=== PATIENT | female | born 1960 | race Caucasian/White ===

== ENCOUNTER → 2016-09-14 | Outpatient (CLI) | payer MEDICARE, BC, OTHER | END | disposition home or self-care (01) | LOC: LABWHC1 09:18 | PROVIDERS: ATTEND Internal Medicine Endocrinology, Diabetes & Metabolism | DX: E03.9 Hypothyroidism, unspecified (principal) | CPT/HCPCS: 36415; 84443 ==

== ENCOUNTER 2016-09-21 14:52 | Observation (INO) | payer BC, MEDICARE, OTHER ==
--- NOTE | 2016-09-21 15:09 | ED ---
Chest Pain HPI - General Chief Complaint: Chest Pain Stated Complaint: chest pain Time Seen by Provider: 09/21/16 14:57 Source: patient Mode of arrival: wheelchair Limitations: no limitations - History of Present Illness Initial Comments: This patient is a 56-year-old woman who comes to be evaluated for an episode of chest pain that occurred over the course of tonight. The patient states that she was awoken by epigastric pain around 2 AM. She states that after to been going on probably 15 minutes she got up and took baby aspirin for this. She states that the pain seemed to radiate up to the substernal area. She described as a tightness, and that it was severe. She states that over about the 15 minutes after she took the baby aspirin the pain resolved. She denies any other associated symptoms. She has been symptom-free since the episode. She phoned her cutter out clinic and they wanted her to come to the emergency department for evaluation. MD Complaint: chest pain Onset/Timin -: hour(s) Onset: awoke with symptoms Pain Location: epigastric Pain Radiation: other (Substernal) Severity: severe Quality: tightness Consistency: now resolved Improves With: other (Baby aspirin) Worsens With: nothing Treatments Prior to Arrival: aspirin - Related Data On Oral Contraceptives: No Home Medications Medication Instructions Recorded Confirmed Benzonatate 100 mg PO DAILY 04/12/15 09/21/16 Levothyroxine Sodium [Synthroid] 88 mcg PO DAILY 04/12/15 09/21/16 azaTHIOprine [Imuran] 50 mg PO DAILY 04/12/15 09/21/16 predniSONE 10 mg PO DAILY 04/12/15 09/21/16 Aspirin EC [Ecotrin Low Dose] 324 mg PO DAILY 09/21/16 09/21/16 Previous Rx's Medication Instructions Recorded Atorvastatin [Lipitor] 80 mg PO HS #1 tab 04/14/15 Metoprolol Tartrate [Lopressor] 25 mg PO BID #1 tab 04/14/15 Nitroglycerin Sl Tabs [Nitrostat] 0.4 mg SUBLINGUAL Q5M PRN #1 tab 04/14/15 Clopidogrel [Plavix] 75 mg PO DAILY #30 tab 06/14/15 Omeprazole [PriLOSEC] 40 mg PO AC-BRKFST #14 cap 07/29/15 Allergies Allergy/AdvReac Type Severity Reaction Status Date / Time Sulfa (Sulfonamide Allergy Rash/Hives Verified 09/21/16 15:39 Antibiotics) Review of Systems ROS Statement: Those systems with pertinent positive or pertinent negative responses have been documented in the HPI. ROS Other: All systems not noted in ROS Statement are negative. Constitutional: Denies: fever, chills Respiratory: Denies: cough, dyspnea, wheezes Cardiovascular: Reports: chest pain. Denies: palpitations, edema, syncope Gastrointestinal: Denies: abdominal pain, nausea, vomiting Genitourinary: Denies: dysuria, hematuria Musculoskeletal: Denies: back pain Skin: Denies: rash Neurological: Denies: headache, weakness, numbness EKG Findings - EKG Results: EKG: interpreted by MICHAEL CADENA (Rate 69 bpm), sinus rhythm, normal axis, normal QRS, normal ST/T, no acute changes - [place], Pacemaker, Normal: Normal tracing: normal tracing Past Medical History Past Medical History: Coronary Artery Disease (CAD), Hyperlipidemia, Myocardial Infarction ([place]), Thyroid Disorder Additional Past Medical History / Comment(s): 06/12/15 Pt presented to [facility] ER with chest discomfort which started last night. Symptoms resolved then returned this AM. Currently syptoms free in the ER. Pain was a "pressure" type pain and she said it had been a "6" on scale 1-10. Pain was in the L sternal region with associated dyspnea with radiation to her neck. Pt states she had a similar experience and had a stent place. Pt being admitted with clinical impression of unstable angina pectoralis. Other HX: Idiopathic pulmonary fibrosis, hypothyroidism. Last Myocardial Infarction Date:: 04/12/15 History of Any Multi-Drug Resistant Organisms: None Reported Past Surgical History: Section, Heart Catheterization With Stent, Hysterectomy, Tonsillectomy Additional Past Surgical History / Comment(s): Open lung biopsy, RIGHT GROIN CATH 04/12/15-stent to LAD, x 1, colonoscopy-normal, R breast lumpectomy-benign. Past Anesthesia/Blood Transfusion Reactions: No Reported Reaction Date of Last Stent Placement:: 04/12/15 Past Psychological History: No Psychological Hx Reported Additional Psychological History / Comment(s): Pt has an adult daughter who lives with her. She is independent. She uses no assistive device. She drives. Smoking Status: Never smoker Past Alcohol Use History: Occasional Past Drug Use History: None Reported - Past Family History Mother Family Medical History: Coronary Artery Disease (CAD), Diabetes Mellitus, Hyperlipidemia, Myocardial Infarction ([place]), Thyroid Disorder Father Family Medical History: Diabetes Mellitus General Exam Limitations: no limitations General appearance: alert, in no apparent distress Head exam: Present: atraumatic, normocephalic Eye exam: Present: normal appearance. Absent: scleral icterus, conjunctival injection ENT exam: Present: normal oropharynx Neck exam: Present: normal inspection, full ROM Respiratory exam: Present: normal lung sounds bilaterally. Absent: respiratory distress, wheezes, rales, rhonchi, stridor, chest wall tenderness Cardiovascular Exam: Present: regular rate, normal rhythm, normal heart sounds. Absent: systolic murmur, diastolic murmur, rubs, gallop GI/Abdominal exam: Present: soft. Absent: distended, tenderness, guarding, rebound, mass Extremities exam: Present: normal inspection, normal capillary refill. Absent: pedal edema, calf tenderness Back exam: Present: normal inspection. Absent: CVA tenderness (R), CVA tenderness (L) Neurological exam: Present: alert Skin exam: Present: warm, dry, intact, normal color. Absent: rash Course Vital Signs 09/21/16 09/21/16 09/21/16 14:54 15:01 15:53 Temperature 97.8 F 98.5 F Pulse Rate 88 73 62 Respiratory 20 20 20 Rate Blood Pressure 120/69 132/64 121/64 O2 Sat by Pulse 99 97 95 Oximetry 09/21/16 16:48 Temperature 97.7 F Pulse Rate 59 L Respiratory 18 Rate Blood Pressure 131/65 O2 Sat by Pulse 95 Oximetry Chest Pain [facility] Patient with episode of chest pain approximately 13 hours prior to arrival. She stated that there were definitely some elements that were reminiscent to her previous pain when she required stent, however some of the symptoms she states felt different. The initial workup is negative. Case is discussed with Dr. Matson who will admit the patient to have serial cardiac enzymes and telemetry monitoring as well as cardiology consultation. Disposition Clinical Impression: Chest pain Disposition: ADMITTED IP TO THIS [facility] Condition: Fair Referrals: Jere Farmer MD [Primary Care Provider] - 1-2 days
[2016-09-21 15:27] LABS: Basophils % (A) 0 %; CH 31.2; CHCM 33.2; Eosinophils # (A) 0.1 k/uL (0-0.7); Eosinophils % (A) 1 %; HCT 42.1 % (34.0-46.0); HDW 2.22; HGB 13.8 gm/dL (11.4-16.0); Luc % (Auto) 2; Lymphocytes # (A) 0.7 k/uL (1.0-4.8); Lymphocytes % (A) 13 %; MCHC 32.8 g/dL (31.0-37.0); MCV 94.4 fL (80.0-100.0); Mean Platelet Volume 6.9; Monocytes # (A) 0.4 k/uL (0-1.0); Monocytes % (A) 7 %; Neutrophils # (A) 4.4 k/uL (1.3-7.7); Neutrophils % (A) 76 %; RBC 4.47 m/uL (3.80-5.40); RDW 12.6 % (11.5-15.5); WBC 5.7 k/uL (3.8-10.6); WBC (Perox) 5.99
[2016-09-21 15:41] LABS: ALT 78 U/L (9-52); AST 57 U/L (14-36); Alkaline Phosphatase 101 U/L (38-126); Anion Gap 10 mmol/L; Blood Urea Nitrogen 17 mg/dL (7-17); Calcium 9.2 mg/dL (8.4-10.2); Carbon Dioxide 25 mmol/L (22-30); Chloride 108 mmol/L (98-107); Glucose 123 mg/dL (74-99); Non-African American GFR(MDRD) >60 (>60 ml/min/1.73 sqM); Potassium 4.3 mmol/L (3.5-5.1); Sodium 143 mmol/L (137-145); Total Bilirubin 0.5 mg/dL (0.2-1.3); Total Protein 6.6 g/dL (6.3-8.2)
--- NOTE | 2016-09-21 15:44 | XR ---
EXAMINATION TYPE: XR chest 2V DATE OF EXAM: 09/21/2016 3:24 PM COMPARISON: Prior chest x-ray 26 July 2015 HISTORY: Chest pain TECHNIQUE: Frontal and lateral views of the chest are obtained. FINDINGS: There are overlying cardiac leads. Cardiomediastinal silhouette, pulmonary vascularity and sagar are within normal limits. Interstitium and lung volume are increased. There is persistent blunt ing left costophrenic angle, strand-like densities are present at the lung bases which may reflect sc arring. IMPRESSION: No significant interval change. Chronic pleural parenchymal changes. Correlate for inter stitial lung disease, chest CT may be of benefit.
[2016-09-21 15:48] LABS: Creatine Kinase 70 U/L (30-135)
[2016-09-21 15:58] LABS: INR 1.1 (<1.1); Prothrombin Time 10.8 sec (9.0-12.0)
[2016-09-21 15:59] LABS: Partial Thromboplastin Time 21.5 sec (22.0-30.0)
[2016-09-21 16:01] LABS: Creatine Kinase MB 0.2 ng/mL (0.0-2.4); Troponin I <0.012 ng/mL (0.000-0.034)
[2016-09-21] MEDS ORDERED: NITROGLYCERIN SL TABS 0.4 MG TAB SUBLINGUAL PRN ×2 (17:04→17:06)
[2016-09-21 20:57] VITALS: RESP 16
[2016-09-21] MEDS: ATORVASTATIN 80 MG TAB PO SCH (22:14)
[2016-09-21] MEDS: METOPROLOL TARTRATE 25 MG TAB PO SCH (22:14)
[2016-09-21 23:06] LABS: Creatine Kinase 54 U/L (30-135)
[2016-09-21 23:17] LABS: Creatine Kinase MB <0.2 ng/mL (0.0-2.4); Troponin I <0.012 ng/mL (0.000-0.034)
[2016-09-22 03:45] LABS: Cholesterol 132 mg/dL (<200); HDL Cholesterol 54 mg/dL (40-60); Triglycerides 110 mg/dL (<150)
[2016-09-22 03:47] LABS: Creatine Kinase 51 U/L (30-135)
[2016-09-22 04:00] LABS: Creatine Kinase MB <0.2 ng/mL (0.0-2.4); Troponin I <0.012 ng/mL (0.000-0.034)
[2016-09-22] MEDS: LEVOTHYROXINE 88 MCG TAB PO SCH (06:46)
[2016-09-22] MEDS ORDERED: NITROGLYCERIN SL TABS 0.4 MG TAB SUBLINGUAL PRN (07:34)
[2016-09-22] MEDS ORDERED: SODIUM CHLORIDE 0.9% 1,000 ML in EMPTY BAG 1 BAG IV ONE (07:34)
[2016-09-22] MEDS ORDERED: ATORVASTATIN 80 MG TAB PO STA (07:34)
[2016-09-22] MEDS ORDERED: ALPRAZolam 0.25 MG TAB PO PRN (07:34)
[2016-09-22] MEDS ORDERED: ASPIRIN 325 MG TAB PO STA (07:34)
[2016-09-22] MEDS ORDERED: ALPRAZolam 0.5 MG TAB PO PRN (07:34)
[2016-09-22] MEDS: CLOPIDOGREL 75 MG TAB PO SCH (08:18)
[2016-09-22] MEDS: BENZONATATE 100 MG CAP PO SCH (08:19)
[2016-09-22] MEDS: METOPROLOL TARTRATE 25 MG TAB PO SCH ×2 (08:19→22:03)
[2016-09-22] MEDS: azaTHIOprine 50 MG TAB PO SCH (08:19)
[2016-09-22] MEDS: PANTOPRAZOLE 40 MG TABLET PO SCH (08:19)
[2016-09-22] MEDS: predniSONE 10 MG TAB PO SCH (08:19)
[2016-09-22] MEDS ORDERED: LIDOCAINE 2% INJ 20 MG/ML (20 ML MDV) ONE (08:41)
[2016-09-22] MEDS ORDERED: fentaNYL (PF) 50 MCG/ML 2 ML AMP ONE (08:42)
[2016-09-22] MEDS ORDERED: diphenhydrAMINE 50 MG/ML 1 ML VIAL ONE (08:42)
[2016-09-22] MEDS ORDERED: SODIUM CHLORIDE 0.9% 500 ML IV ONE (08:55)
[2016-09-22] MEDS ORDERED: NON-FORMULARY DRUG (Aspirin Ec 324 MG) PO SCH (09:00)
[2016-09-22] MEDS ORDERED: ASPIRIN 325 MG TAB PO SCH (09:00)
[2016-09-22] MEDS ORDERED: diphenhydrAMINE 50 MG/ML 1 ML VIAL IVP ONE (09:01)
[2016-09-22] MEDS ORDERED: fentaNYL (PF) 50 MCG/ML 2 ML AMP IV ONE (09:02)
[2016-09-22] MEDS ORDERED: LIDOCAINE 2% INJ 20 MG/ML SQ ONE (09:06)
[2016-09-22] MEDS ORDERED: NITROGLYCERIN 1000MCG/10ML SYRINGE INTRACORON ONE (09:18)
[2016-09-22] MEDS ORDERED: IOHEXOL 350 MG/ML 100 ML BOTTLE INJ ONE (09:26)
[2016-09-22] MEDS ORDERED: RX INFO: IV CONTRAST WAS GIVEN 1 EACH MISC MISCELLANE PRN (09:36)
--- NOTE | 2016-09-22 10:33 | CC ---
CLINICAL INFORMATION: Cris Dobbs is well known to me, follows with me in the office. The patient is known to have hypertension, hypercholesterolemia and coronary artery disease, underwent angioplasty and stenting of the LAD in April 2015 and repeat angioplasty was done because of small aortic dissection noted in June 2015. Since that time, patient has been pain free. Patient admitted here with recurrent chest pain suggestive of unstable angina, evaluated by my associate, advised to have a cardiac catheterization based on her symptoms, even though there were no enzyme leaks. PROCEDURE: Under local anesthesia under moderate sedation, the patient received fentanyl and the patient remained under sedation for 30 minutes. With sterile precautions, right femoral artery was cannulated. Using a Seldinger technique, a 6 [place] sheath was placed and proceeded with right and left coronary angiograms followed by left ventriculogram followed by common femoral angiogram and Angio-Seal. The patient tolerated the procedure very well. The patient required left coronary 3.5 ( ) catheter and also required ( ) for the right. HEMODYNAMIC DATA: Aortic pressure noted to be done 146/74 with a mean pressure of 101. Left ventricular end-diastolic pressure prior to angiography was 10; post angiography increased to 12. Left ventriculography done 30 degrees JIMENEZ projection revealed normal cardiac silhouette with well-preserved systolic function with an ejection fraction of 65%. Mild catheter-induced mitral regurgitation is noted. Ascending and descending aorta appeared normal. SELECTIVE CORONARY ARTERIOGRAPHY: Left main coronary artery is of normal caliber, free of any atherosclerotic occlusive disease. Left anterior descending is a moderate-caliber blood vessel, wraps around the apex, free of any atherosclerotic occlusive disease without any evidence of re-stenosis in the mid segment that was stented in April 2015 and June 2015. Left circumflex is a moderate-caliber nondominant blood vessel free of any atherosclerotic occlusive disease. Right coronary artery: Right coronary artery originates posteriorly, dominant blood vessel, free of any atherosclerotic occlusive disease throughout its course. ASSESSMENT: No evidence of recurrence of re-stenosis in the mid LAD, which was stented in June and April of 2015. Normal end-diastolic pressure, normal LV function, normal coronaries. Continue medical therapy methods.
--- NOTE | 2016-09-22 11:22 | HP ---
DATE OF ADMISSION: 09/21/2016 PRESENTING COMPLAINT: Chest pain. HISTORY OF PRESENTING COMPLAINT: This is a very pleasant 57 -year-old patient who follows with Dr. Farmer. Patient's chronic stable medical conditions include pulmonary fibrosis, hypertension, hyperlipidemia and hypothyroid. Patient this morning got woke up around 2:00 with pain felt like a hot pain in the epigastric area, went up the lower sternum, lasted for a good 40 minutes. She took aspirin to which she feels better. Patient started perspiring without much short of breath. Does feel a bit tired, no dizziness. Patient was admitted with diagnosis of unstable angina. Patient has a known history of stent back in 2014 and has had no further testing since then. The patient has fair exercise tolerance. Able to get around the house. REVIEW OF SYSTEMS: CONSTITUTIONAL: Tired. HEENT: None. RESPIRATORY: As above. CARDIOVASCULAR: As above. GASTROINTESTINAL: None. GENITOURINARY: None. MUSCULOSKELETAL: None. Dermatologic: None. LYMPHATICS: None. HEMATOLOGICAL: None. PSYCHIATRY: None. NEUROLOGICAL: None. PAST MEDICAL HISTORY: Coronary artery disease with stent in 2014. Hyperlipidemia, hypothyroid, idiopathic pulmonary fibrosis, hypothyroidism, [place] x2. PAST SURGICAL HISTORY: , cardiac cath with stent. Hysterectomy. Tonsillectomy, open lung biopsy. Cardiac cath with 2 stents, , colonoscopy normal. Right breast lumpectomy, benign. SOCIAL HISTORY: Lives by herself. Has a dog. No smoking. Alcohol, occasional. Not employed. Family history of coronary artery disease, diabetes, hyperlipidemia, thyroid disorder. HOME MEDICATIONS: 1. Prednisone 10 mg a day. 2. Imuran 50 mg a day. 3. Prilosec 40 mg with breakfast. 4. Lopressor 25 b.i.d. 5. LevoSynthroid 88 mcg a day. 6. Plavix 75 mg a day. 7. Benzonatate 100 mg p.o. daily. 8. Lipitor 40 mg q.h.s. 9. Aspirin 325 p.o. daily. 10. Nitrostat 0.4 sublingual q.5 p.r.n. ALLERGIES TO SULFA. On examination, temperature 97.8, pulse 88, respiratory rate 20, blood pressure 120/69, pulse ox 99% on room air. GENERAL APPEARANCE: Sitting up, comfortable. EYES: Pupils equal. Conjunctivae normal. HEENT: External appearance of nose and ears normal. Oral cavity normal. NECK: JVD not raised. Mass not palpable. RESPIRATORY: Effort normal. LUNGS: Fair air entry. CARDIOVASCULAR: First and second sounds normal. No edema. ABDOMEN: Soft, nontender. Liver and spleen not palpable. LYMPHATIC: No lymph nodes palpable in neck or axillae. PSYCHIATRY: Alert and oriented x3. Mood and affect normal. NEUROLOGICAL: Pupils equal. Cranial nerves grossly intact. Power and sensation grossly intact. INVESTIGATIONS: White count 5.9, hemoglobin 13.8, potassium 4.3. BUN and creatinine are normal. Troponin less than 0.012. EKG normal sinus rhythm. ASSESSMENT: 1. Possible unstable angina in a patient with known coronary stent back in 2014. 2. Idiopathic pulmonary fibrosis, chronic. 3. Essential hypertension. 4. Hyperlipidemia. 5. Hypothyroidism. PLAN: Patient is not having any further pains right now. Serial cardiac enzymes are in place. Cardiology will be consulted. Care was discussed with the patient. We will make the patient n.p.o. after midnight except for oral medications and in case cardiology decides to procedure with cardiac catheterization. Care was discussed with the patient. The patient does see Dr. Chin Goodman as his shank scourer.
--- NOTE | 2016-09-22 12:43 | ECHOF ---
Referral Reason:cp MEASUREMENTS -------- HEIGHT: 157.5 cm WEIGHT: 72.1 kg BP: 115/64 RVIDd: 2.7 cm (< 3.3) IVSd: 0.8 cm (0.6 - 1.1) LVIDd: 3.6 cm (3.9 - 5.3) LVPWd: 1.0 cm (0.6 - 1.1) IVSs: 1.5 cm LVIDs: 2.1 cm LVPWs: 1.3 cm LAESV Index (A-L): 16.37 ml/m Ao Diam: 2.9 cm (2.0 - 3.7) AV Cusp: 1.7 cm (1.5 - 2.6) LA Diam: 2.5 cm (2.7 - 3.8) MV EXCURSION: 8.785 mm (> 18.000) MV EF SLOPE: 123 mm/s (70 - 150) EPSS: 0.9 cm MV E Kevin: 0.76 m/s MV DecT: 291 ms MV A Kevin: 0.65 m/s MV E/A Ratio: 1.17 RAP: 5.00 mmHg RVSP: 29.65 mmHg FINDINGS -------- Sinus rhythm. This was a technically good study. Left ventricular wall thickness is normal. Overall left ventricular systolic function is normal with, an EF between 55 - 60 %. The right ventricle is normal in size. Normal LA size by volume 22+/-6 ml/m2. The right atrium is normal in size. Aortic valve is trileaflet and is mildly thickened. The mitral valve is normal. Mild tricuspid regurgitation present. Right ventricular systolic pressure is normal at < 35 mmHg. Pulmonic valve appears structurally normal. The aortic root size is normal. Normal inferior vena cava with normal inspiratory collapse consistent with estimated right atrial pressure of 5 mmHg. Echo free space may represent effusion or a pericardial fat pad. CONCLUSIONS -------- 1. Sinus rhythm. 2. Mild tricuspid regurgitation present. 3. Right ventricular systolic pressure is normal at < 35 mmHg. 4. Pulmonic valve appears structurally normal. 5. The aortic root size is normal. 6. Echo free space may represent effusion or a pericardial fat pad. 7. This was a technically good study. 8. Left ventricular wall thickness is normal. 9. Overall left ventricular systolic function is normal with, an EF between 55 - 60 %. 10. The right ventricle is normal in size. 11. Normal LA size by volume 22+/-6 ml/m2. 12. The right atrium is normal in size. 13. Aortic valve is trileaflet and is mildly thickened. 14. The mitral valve is normal. HULL MOLDER: Yolande Lilly RDCS
--- NOTE | 2016-09-22 12:51 | CONS ---
DATE OF CONSULTATION: Mrs. Dobbs is a 56-year-old female with known history of coronary artery disease, hypertension, hyperlipidemia, history of pulmonary fibrosis, who presented to the emergency room with symptoms of chest discomfort. She was awoken with epigastric pain, radiating up to the chest and to the neck reminding her of the symptom she had at the time of her stenting. She has underwent stenting for LAD in initially in April 2015 and underwent repeat stenting in June by Dr. Kay Goodman. She has done reasonably well, a month ago she had an episode of chest discomfort, it resolves but the last night she had severe discomfort. She was diaphoretic and dyspneic, took 4 aspirin and subsequently her symptoms resolved gradually over 40 minutes. She is reasonably active physically. She has some palpitation with physical activity. She has history of pulmonary fibrosis, but her breathing is stable. She has no dizziness. No palpitation on a regular basis. No syncope. No PND, orthopnea, or peripheral edema. Her coronary risk factors are remarkable for hypertension, hyperlipidemia. She is a nonsmoker, nondiabetic. Her medications include aspirin, Lipitor 80 mg daily, Plavix 75 mg daily, levothyroxine 0.88 mg daily, metoprolol tartrate 25 mg twice a day, Prilosec 40 mg twice a day, Imuran and prednisone. REVIEW OF SYSTEMS: RESPIRATORY SYSTEM: She has history of pulmonary fibrosis. No recent wheezing or cough. GI SYSTEM: No recent GI bleeding. No peptic ulcer disease. SYSTEM: No dysuria or hematuria. NERVOUS SYSTEM: No stroke or seizure. PHYSICAL EXAMINATION: A 56-year-old female, alert, oriented, in no apparent distress. Blood pressure 115/64 with a heart in the 60s. HEAD: Normocephalic. EYES: Sclerae nonicteric. NECK: Good upstroke. No bruit. No jugular venous distention. LUNGS: Clear to auscultation. HEART: Regular rate and rhythm. S1, S2, no S3, no rub or gallop appreciated. ABDOMEN: Soft, nontender, positive bowel sounds. No organomegaly. EXTREMITIES: No edema. Intact distal pulses. Lab data revealed a BUN and creatinine of 17 and 0.8. Potassium 4.3, troponin less than 0.012 for 3 samples. AST of 57, ALT of 78. Cholesterol is 132, LDL 56, hemoglobin is 13.8. EKG reveals sinus mechanism with a normal axis and intervals with T-wave inversion in V1 and V2, could be lead placement. Cannot exclude ischemia. IMPRESSION: 1. Symptoms of chest discomfort of unclear etiology, possible angina pectoris in a patient with known history of coronary artery disease and no evidence of myocardial infarction. 2. Hypertension. 3. Hyperlipidemia. 4. History of pulmonary fibrosis. RECOMMENDATION: I have discussed with the patient the option including coronary angiography versus noninvasive testing. In view of her severe pain, that reminds her of the pain she felt at the time of her prior intervention, I have recommended proceeding with cardiac catheterization. The rationale behind the procedure as well as risks and complications were discussed with the patient, who is in full understanding and agreement. The procedure will be performed by Dr. Kay Goodman. Thank you for this consult. Will follow with you.
[2016-09-22] MEDS: ATORVASTATIN 80 MG TAB PO SCH (22:04)
--- NOTE | 2016-09-22 22:56 | PN ---
DATE OF SERVICE: 09/22/2016 PRESENTING COMPLAINT: Epigastric chest pain. INTERVAL HISTORY: This patient presented with epigastric and chest pain, underwent a cardiac cath, did not show any blockages. Because of pain in the epigastric area, patient is concerned about this being a gallbladder problem, which is a possibility. Review of systems done for constitutional, cardiovascular, GI, pulmonary; relevant findings as above. Current medications are reviewed. On examination, temperature 98.6, pulse 53, respirations 16, blood pressure 97/56, pulse ox 93% on room air. GENERAL APPEARANCE: Sitting up, not in distress. EYES: Pupils equal. Conjunctivae normal. NECK: JVD not raised. Mass not palpable. RESPIRATORY: Effort normal. Lungs are clear. CARDIOVASCULAR: First and second sounds normal. No edema. ABDOMEN: Soft, nontender. Liver, spleen not palpable. PSYCHIATRY: Alert and oriented x3. Mood and affect normal. INVESTIGATIONS: Troponins were negative. Cardiac cath did not show any blockages. ASSESSMENT: 1. Epigastric chest pain with a cardiac catheterization negative. Need to consider gallbladder disease. 2. Idiopathic pulmonary fibrosis, chronic. 3. Essential hypertension. 4. Hyperlipidemia. 5. Hypothyroidism. PLAN: At this point will go ahead and order ultrasound and also get a surgical opinion. Care was discussed with the patient.
[2016-09-23] MEDS ORDERED: ASPIRIN 81 MG CHEW PO SCH (09:00)
[2016-09-23] MEDS ORDERED: ISOSORBIDE MONONITRATE ER 60 MG TAB.ER.24H PO SCH (09:00)
--- NOTE | 2016-09-23 09:15 | US ---
EXAMINATION TYPE: US abdomen complete DATE OF EXAM: 09/23/2016 8:48 AM COMPARISON: NONE CLINICAL HISTORY: epigastric pain. NPO EXAM MEASUREMENTS: Liver Length: 14.1 cm Gallbladder Wall: 0.4 cm CBD: 0.5 cm Spleen: 8.5 cm Right Kidney: 9.7 x 4.6 x 3.9 cm Left Kidney: 8.8 x 3.9 x 4.3 cm TECHNOLOGIST IMPRESSION: Pancreas: body= 2.0 cm. Head and tail not seen due to overlying bowel gas Liver: wnl Gallbladder: Thickened wall. Neck not seen. Stone= 1.2 cm Evidence for sonographic Goff's sign: neg CHD: wnl Spleen: wnl Right Kidney: Medial/lower pole echogenic non shadowing focus= 0.4 x 0.5 cm Left Kidney: Lateral lower pole cyst= 1.1 x 0.9 x 0.8 cm Upper IVC: seen Abd Aorta: Mid Aorta not seen due to overlying bowel gas The liver is homogenous. The intrahepatic portion of the IVC and visualized abdominal aorta are with in normal limits. Gallbladder neck is not well seen, shadowing probable nonmobile stone is identified measuring 1.2 cm. Gallbladder wall is minimally thickened at 4 mm though the gallbladder is somewha t contracted which may exaggerate finding. Common bile duct is unremarkable. The visualized portions of the pancreas are homogenous and upper limits of normal in thickness. Portions of pancreatic head and tail are obscured by overlying bowel gas. The spleen is unremarkable. Kidneys are symmetric and free of hydronephrosis. Nonspecific 4 mm nonshadowing hyperechoic focus right kidney could reflect no nobstructing calculus though is nonspecific. A 1 cm simple appearing cyst lower pole level left kidne y is noted. IMPRESSION: Suboptimal study with nonmobile stone in gallbladder neck identified, no convincing seco ndary ultrasound evidence for acute cholecystitis. Consider HIDA scan correlation.
--- NOTE | 2016-09-23 10:04 | PN ---
Mrs. Dobbs is a 56-year-old female with a history of coronary artery disease, who presented with symptoms of discomfort, has some atypical feature for ischemic heart disease, but reminding her of the symptoms she had prior to the stenting. She underwent cardiac catheterization yesterday that revealed no evidence of progression of disease. Her breathing has been stable. She is scheduled to undergo an ultrasound of the right upper quadrant to rule out cholecystitis. She denies any dizziness, palpitation. She denies any nausea. She continues to be at this time on Lipitor, Plavix 75 mg daily, isosorbide mononitrate 60 mg daily, metoprolol 25 mg twice a day, prednisone. PHYSICAL EXAMINATION: Blood pressure 110/60 with the heart rate in 60s. LUNGS: Clear. HEART: Regular rate and rhythm. S1 and S2, no S3, no rub. ABDOMEN: Soft, nontender. RIGHT GROIN: No hematoma. Her echocardiogram revealed a preserved left ventricular size and systolic function. IMPRESSION: 1. Chest discomfort with no evidence of myocardial infarction and no progression of disease. 2. History of coronary artery disease. 3. History of hyperlipidemia. RECOMMENDATIONS: From the cardiac standpoint, she is stable. She will be followed as an outpatient with Dr. Kay Goodman.
--- NOTE | 2016-09-23 12:33 | P.GSCN ---
History of Present Illness Consult date: 09/23/16 Reason for Consult: Abdominal pain Requesting physician: Robinson Matson History of present illness: A 56-year-old female is being seen at the request of the attending for surgical eval for patient reportedly experiencing epigastric pain. Patient reports that she woke up on the morning of the event around 2:00 in the middle the night with the sharp hot burning pain in the epigastric area went down to the lower sternum. Patient states that last for about 40 minutes. Patient stated that she did take an aspirin and felt like it has improved. Patient stated that she had a second similar episode of epigastric pain became concerned and came into the emergency room to be evaluated.. Patient described as a tightness and felt severe. Patient stated that she was asleep in the pain is what woke her up. Patient denied any other associated symptoms. Patient denied any prior episodes. Patient stated that she was advised to come to the emergency room to be evaluated for the above-mentioned symptoms. Patient was admitted and a cardiology consultation was requested. Patient does have a known history of coronary artery disease. Patient was seen by cardiology service there was no elevated troponin. It's noted the patient is on Plavix 75 mg daily as well as an aspirin daily. Cardiology recommended that the patient's symptoms be evaluated with a heart catheterization. Patient did undergo the heart catheterization on September 22. It showed no evidence of reoccurrence every stenosis in the mid LAD which was stented in June and April 2015. The LV gram done showed well-preserved systolic function with an EF of 65%. Cardiology indicated the chest discomfort showed no evidence of myocardial infarction the was no progression of the disease. From a cardiac standpoint patient was felt to be stable from their perspective could be followed in the outpatient setting with her primary mallet cutter Dr. Yung. The epigastric discomfort present on admission showing no evidence of coronary artery disease The attending requested surgical eval for workup for possible gallbladder disease Patient did have an ultrasound of the abdomen and pelvis it did show nonmobile stone in the gallbladder neck consider a HIDA scan recommendations were to follow this up with a HIDA scan liver enzymes were not elevated Review of Systems Essentially unremarkable except as mentioned in the present illness Past Medical History Past Medical History: Coronary Artery Disease (CAD), Hyperlipidemia, Myocardial Infarction ([place]), Pneumonia, Thyroid Disorder Additional Past Medical History / Comment(s): unstable angina , Idiopathic pulmonary fibrosis, hypothyroidism. X2 PORFIRIO Last Myocardial Infarction Date:: 04/12/15, 06/12/15 History of Any Multi-Drug Resistant Organisms: None Reported Past Surgical History: Section, Heart Catheterization With Stent, Hysterectomy, Tonsillectomy Additional Past Surgical History / Comment(s): Open lung biopsy,2 HEART CATHS AND 2 STENTS, x 1, colonoscopy-normal, R breast lumpectomy-benign. Past Anesthesia/Blood Transfusion Reactions: No Reported Reaction Date of Last Stent Placement:: 04/12/15 Past Psychological History: No Psychological Hx Reported Additional Psychological History / Comment(s): Pt LIVES BY HERSELF. HAS 1 PET DOG. She is independent. She uses no assistive device. She drives. Smoking Status: Never smoker Past Alcohol Use History: Occasional Past Drug Use History: None Reported - Past Family History Mother Family Medical History: Coronary Artery Disease (CAD), Diabetes Mellitus, Hyperlipidemia, Myocardial Infarction ([place]), Thyroid Disorder Additional Family Medical History / Comment(s): DIVERTICULITS Father Family Medical History: Dementia, Diabetes Mellitus Medications and Allergies Home Medications Medication Instructions Recorded Confirmed Type Benzonatate 100 mg PO DAILY 04/12/15 09/21/16 History Levothyroxine Sodium [Synthroid] 88 mcg PO DAILY 04/12/15 09/21/16 History azaTHIOprine [Imuran] 50 mg PO DAILY 04/12/15 09/21/16 History predniSONE 10 mg PO DAILY 04/12/15 09/21/16 History Aspirin EC [Ecotrin Low Dose] 324 mg PO DAILY 09/21/16 09/21/16 History Allergies Allergy/AdvReac Type Severity Reaction Status Date / Time Sulfa (Sulfonamide Allergy Rash/Hives Verified 09/21/16 15:39 Antibiotics) Surgical - Exam Vital Signs Temp Pulse Resp BP Pulse Ox 97.8 F 88 20 120/69 99 09/21/16 14:54 09/21/16 14:54 09/21/16 14:54 09/21/16 14:54 09/21/16 14:54 GENERAL APPEARANCE: 56-year-old female patient is alert, oriented, in no acute distress. Currently denying any chest pain shortness of breath or epigastric discomfort VITAL SIGNS: Reviewed HEENT: Head is normocephalic and atraumatic. Pupils are equal and reactive. The nares are patent. Oropharynx is clear without lesions. NECK: Supple without lymphadenopathy. Traches midline. HEART: S1, S2. Regular rate and rhythm. No murmur noted denying chest pain LUNGS: Posterior fine crackles at the bases upper airways bronchial breath sounds. Essentially clear on room air sats 94% ABDOMEN: Soft, nontender, nondistended with good bowel sounds. No peritoneal signs. No palpable organomegaly or masses. EXTREMITIES: Normal skin color and turgor. No cyanosis, rash, ulceration, clubbing or edema. Radial pedal pulses are 2/4 bilaterally. The right groin site no evidence of a hematoma NEUROLOGICAL: No focal deficits. Strength and sensation are grossly intact. Results - Labs 09/21/16 15:15 09/21/16 15:15 Assessment and Plan Plan: Impression Present on admission midepigastric discomfort suspect due to cystic duct obstruction as evident on the HIDA scan History of known coronary artery disease Status post heart catheterization 22 of September no evidence of reoccurrence of restenosis in the mid LAD which was stented in June and April 2015 LV gram well-preserved systolic function with an EF 65% History of pulmonary fibrosis Ultrasound of the abdomen pelvis nonmobile stone in the gallbladder neck identified no convincing evidence of acute cholecystitis Plan Cardiology indicate the patient can be off Plavix for the next 7 days in anticipation of the patient undergoing lap cholecystectomy next Wednesday Follow-up in the office with Dr. Faulkner Plavix is held the next 7 days Resume home meds as appropriate DVT and GI prophylaxis Surgical perspective the patient could be discharged defer to the timing of the discharge by medicine service Thank you for allowing us to participate in the surgical management of your patient further surgical recommendations pending after reviewing the HIDA scan The above dictated assessment and findings were discussed with dr Kaushik Weir Impression and the plan of care have been dictated as directed. Queenie Harmon nurse practitioner acting as a scribe for Dr. Carlos
--- NOTE | 2016-09-23 13:23 | NM ---
EXAMINATION TYPE: NM hepatobiliary wo EF DATE OF EXAM: 09/23/2016 1:13 PM COMPARISON: Ultrasound abdomen same date HISTORY: Gallstone, abnormal ultrasound abdomen TECHNIQUE: After the intravenous administration of 5.2 mCi Tc 99m Mebrofenin hepatobiliary scintigrap hy is performed. Immediate images post injection. FINDINGS: Gallbladder is not visualized despite delayed imaging. The liver is visualized and immediate images. Biliary system and small bowel activity are detected by 6 minutes. IMPRESSION: Findings could be indicative of cystic duct obstruction.
[2016-09-23] MEDS: METOPROLOL TARTRATE 25 MG TAB PO SCH (13:51)
[2016-09-23] MEDS: BENZONATATE 100 MG CAP PO SCH (13:52)
[2016-09-23] MEDS: PANTOPRAZOLE 40 MG TABLET PO SCH (13:52)
[2016-09-23] MEDS: predniSONE 10 MG TAB PO SCH (13:52)
[2016-09-23] MEDS: LEVOTHYROXINE 88 MCG TAB PO SCH (13:52)
[2016-09-23] MEDS: azaTHIOprine 50 MG TAB PO SCH (13:53)
[2016-09-23] MEDS: CLOPIDOGREL 75 MG TAB PO SCH (14:18)
[2016-09-23 15:54] VITALS: BP 147/64; PULSE 72; TEMP 97.4
--- NOTE | 2016-09-24 20:35 | DS ---
DATE OF ADMISSION: 09/21/2016 DATE OF DISCHARGE: 09/23/2016 FINAL DIAGNOSES: 1. Epigastric pain from gallstones/cholelithiasis symptomatic. 2. Idiopathic pulmonary fibrosis, chronic. 3. Essential hypertension. 4. Hyperlipidemia. 5. Hypothyroidism 6. Coronary artery disease with stent in 2014. HOSPITAL COURSE: This patient with known coronary stent presented with epigastric and chest pain. The patient underwent cardiac cath, did not show any stenosis. Because of presentation a 2-D echocardiogram and HIDA scan were done that did show possibly cystic duct stone. Patient currently is asymptomatic. Patient will stop Plavix for a week and patient will have a cholecystectomy done next week. CONSULTATION: 1. Dr. Beasley from Cardiology. 2. Dr. Lori Meng from General Surgery. DISCHARGE MEDICATIONS: 1. Benzonatate 100 mg p.o. daily. 2. Synthroid 88 mcg a day. 3. Imuran 50 mg p.o. daily. 4. Prednisone 10 mg a day. 5. Lipitor 80 mg p.o. q.h.s. 6. Lopressor 25 mg p.o. b.i.d. 7. Nitrostat 0.4 sublingual q.5 p.r.n. 8. Plavix 75 mg daily to be held right now due to surgery. 9. Prilosec 40 mg with breakfast. 10. Aspirin 81 mg daily. Follow up with Dr. Farmer in [address] Lori Meng 09/25/[address] Vega in one week. Patient's surgery is being scheduled by Dr. Lori Meng. Questions were answered. On examination: LUNGS: Decreased breath sounds. CARDIOVASCULAR: First and second sounds normal. ABDOMEN: Soft, nontender. Discharge planning more than 35 minutes.
== END 2016-09-23 16:32 | disposition home or self-care (01) ==
LOC: EC 14:52 → 3OBS 17:04
PROVIDERS: ADMIT Hospitalist; ATTEND Hospitalist
DX: K80.20 Calculus of gallbladder without cholecystitis without obstruction (principal); J84.112 Idiopathic pulmonary fibrosis; I10 Essential (primary) hypertension; E78.5 Hyperlipidemia, unspecified; E03.9 Hypothyroidism, unspecified; I25.10 Atherosclerotic heart disease of native coronary artery without angina pectoris; I25.2 Old myocardial infarction; F41.9 Anxiety disorder, unspecified; Z79.02 Long term (current) use of antithrombotics/antiplatelets; Z88.2 Allergy status to sulfonamides; Z95.5 Presence of coronary angioplasty implant and graft; R61 Generalized hyperhidrosis; R07.9 Chest pain, unspecified; Z79.82 Long term (current) use of aspirin; Z79.52 Long term (current) use of systemic steroids; Z79.899 Other long term (current) drug therapy
CPT/HCPCS: 99285; 36415; 93005; 93306; 93458; 85379; 83880; 80061; 80053; 82550 ×2; 82553 ×2; 83690; 83735; 84484 ×2; 85025; 85610; 85730; 71020; 76700; 78226; G0378 ×3; C1760; C1894; C1769; A9537; J2001; J7500 ×2; J1200; Q9967; J3010; J7512 ×2

== ENCOUNTER 2016-09-29 08:57 | Day surgery (SDC) | payer BC, MEDICARE, OTHER ==
[2016-09-28 14:59] VITALS: BMI 29.0
[~2016-09-29 08:57] MED LIST: DEXAMETHASONE SOD PHOSPHATE 10 MG/ML 1 ML VIAL IV ONE; HYDROmorphone 1 MG/ML 1 ML SYRINGE IVP PRN; LACTATED RINGERS 1,000 ML IV SCH; LIDOCAINE 1% 20 ML VIAL (10MG/ML) FOR IV START INTRADERMA PRN; MIDAZOLAM 2 MG/2 ML VIAL IV PRN; ONDANSETRON 4 MG/2 ML VIAL IVP ONE; SCOPOLAMINE 1.5MG/72HR PATCH TRANSDERM ONE; ceFAZolin 2 GM in SODIUM CHLORIDE 0.9% 100 ML IVPB ONE
[2016-09-29] MEDS ORDERED: HEPARIN SODIUM,PORCINE 5,000 UNIT/ML 1 ML VIAL SQ ONE (09:09)
[2016-09-29 10:05] LABS: Glucose,Whole Blood 38 mg/dL (75-99)
[2016-09-29 10:05] LABS: Glucose,Whole Blood 74 mg/dL (75-99)
[2016-09-29] MEDS ORDERED: HYDROCORTISONE SUCCINATE 100 MG/2 ML VIAL IVP ONE (10:15)
[2016-09-29] MEDS ORDERED: PHENYLEPHRINE-0.9% NACL SYG 1 MG/10 ML SYRINGE ONE (11:25)
[2016-09-29] MEDS ORDERED: LIDOCAINE 1% INJ 10MG/ML (20 ML MDV) ONE (11:25)
[2016-09-29] MEDS ORDERED: ROCURONIUM BROMIDE 10 MG/ML 10 ML VIAL IV ONE (11:25)
[2016-09-29] MEDS ORDERED: SUCCINYLCHOLINE CHLORIDE 100 MG/5 ML SYR IV ONE (11:25)
[2016-09-29] MEDS ORDERED: fentaNYL (PF) 50 MCG/ML 2 ML AMP ONE (11:25)
[2016-09-29] MEDS ORDERED: MIDAZOLAM 2 MG/2 ML VIAL ONE (11:25)
[2016-09-29] MEDS ORDERED: PROPOFOL 10 MG/ML 20 ML VIAL IV ONE (11:25)
[2016-09-29] MEDS ORDERED: GLYCOPYRROLATE 0.2 MG/ML 2 ML VIAL ONE (11:25)
[2016-09-29] MEDS ORDERED: KETOROLAC 30 MG/ML 1 ML VIAL ONE (11:25)
[2016-09-29] MEDS ORDERED: NEOSTIGMINE 1 MG/ML 10 ML VIAL ONE (11:25)
[2016-09-29] MEDS ORDERED: LIDOCAINE 1% INJ 10MG/ML (20 ML MDV) SQ ONE ×2 (12:02→12:42)
--- NOTE | 2016-09-29 12:53 | P.OP ---
Date of Procedure: 09/29/16 Preoperative Diagnosis: Symptomatic cholelithiasis Postoperative Diagnosis: Same Procedure(s) Performed: Laparoscopic cholecystectomy Anesthesia: KWADWO Surgeon: Danielle Meng Estimated Blood Loss (ml): 5 IV fluids (ml): 500 Pathology: other (Gallbladder) Condition: stable Disposition: PACU Indications for Procedure: Patient is a 56-year-old white female with symptomatic cholelithiasis. Operative Findings: Large gallstone at the neck of the gallbladder Description of Procedure: Patient is a 56-year-old white female who with symptomatic cholelithiasis. She understands risks and benefits and wishes to proceed with laparoscopic possible open cholecystectomy. Patient was taken to the operating room and following induction of general anesthesia the abdomen was prepped and draped in a sterile fashion. An infraumbilical incision was made and carried down to the skin and subcutaneous tissue to the fascia the intra-abdominal wall. This was elevated and the peritoneal cavity was entered. A balloon trocar was placed under direct visualization. 2 stay sutures were placed. The abdomen was insufflated. 2#5 ports were placed in the right upper quadrant as well as a #11 port just to the left of the midline in the upper quadrant. Omentum was adherent to the gallbladder and this was carefully taken down using blunt dissection. The gallbladder was retracted with the area of the cystic duct and cystic artery be clearly visualized. This was stapled and divided. The gallbladder was taken down from its peritoneal attachments to the liver bed using electrocautery device. The gallbladder was then placed in a Pleatman sac and brought out through the #11 port site. After assured that hemostasis was attained and all clips were intact was determined to close the #11 port site using the Francisco Nye device. This was accomplished. All trochars were removed under direct visualization no evidence of any bleeding was identified. The infraumbilical trocar was removed and the fascia was closed using 0 Vicryl suture. All skin incisions were closed using 4-0 Monocryl. Patient tolerated procedure in stable condition. All instrument and sponge counts were correct at the end of the case.
--- NOTE | 2016-09-29 12:55 | P.DS ---
Providers Attending physician: Danielle Meng Primary care physician: Jere Farmer Plan - Discharge Summary New Discharge Prescriptions: HYDROcodone/APAP 5-325MG [Gray 5] 1 - 2 each PO Q4H PRN #20 tab PRN Reason: Pain Discharge Medication List Benzonatate 100 mg PO DAILY 04/12/15 [History] Levothyroxine Sodium [Synthroid] 88 mcg PO DAILY 04/12/15 [History] azaTHIOprine [Imuran] 50 mg PO DAILY 04/12/15 [History] predniSONE 5 mg PO DAILY 04/12/15 [History] Atorvastatin [Lipitor] 80 mg PO HS #1 tab 04/14/15 [Rx] Metoprolol Tartrate [Lopressor] 25 mg PO BID #1 tab 04/14/15 [Rx] Nitroglycerin Sl Tabs [Nitrostat] 0.4 mg SUBLINGUAL Q5M PRN #1 tab 04/14/15 [Rx] Clopidogrel [Plavix] 75 mg PO DAILY #30 tab 06/14/15 [Rx] Omeprazole [PriLOSEC] 40 mg PO AC-BRKFST #14 cap 07/29/15 [Rx] Aspirin EC [Ecotrin Low Dose] 81 mg PO DAILY #0 09/23/16 [Rx] HYDROcodone/APAP 5-325MG [Gray 5] 1 - 2 each PO Q4H PRN #20 tab 09/29/16 [Rx] Follow up Appointment(s)/Referral(s): Danielle Meng MD [STAFF PHYSICIAN] - 1 Week Activity/Diet/Wound Care/Special Instructions: Do not drive until seen by Dr. Faulkner No heavy lifting nothing over 10 pounds Discharge Disposition: HOME SELF-CARE
[2016-09-29 13:08] VITALS: TEMP 98.2
[2016-09-29 13:17] VITALS: RESP 16
[2016-09-29] MEDS ORDERED: LACTATED RINGERS 1,000 ML IV ONE (14:14)
[2016-09-29] MEDS ORDERED: HYDROcodone/APAP 5-325MG 1 EACH TAB PO ONE ×3 (14:43→14:56)
[2016-09-29 15:35] VITALS: BP 103/64; PULSE 61
== END 2016-09-29 17:23 | disposition home or self-care (01) ==
LOC: OR 08:57
PROVIDERS: ATTEND Surgery
DX: K80.10 Calculus of gallbladder with chronic cholecystitis without obstruction (principal); E03.9 Hypothyroidism, unspecified; I10 Essential (primary) hypertension; J84.10 Pulmonary fibrosis, unspecified; M81.0 Age-related osteoporosis without current pathological fracture; Z79.82 Long term (current) use of aspirin; Z79.899 Other long term (current) drug therapy; Z79.52 Long term (current) use of systemic steroids
CPT/HCPCS: 47562; 88304; J2250; J1644; J1100; J2710; J1720; J0690; J2405; J2001; J3010; J1885; J2370; J0330; J2704

== ENCOUNTER → 2016-12-22 | Outpatient (CLI) | payer MEDICARE, BC, OTHER ==
[2016-12-22 16:54] LABS: ALT 40 U/L (9-52); AST 35 U/L (14-36); Alkaline Phosphatase 59 U/L (38-126); Anion Gap 9 mmol/L; Bilirubin, Delta 0.3 mg/dL (0.0-0.2); Blood Urea Nitrogen 14 mg/dL (7-17); Calcium 9.1 mg/dL (8.4-10.2); Carbon Dioxide 28 mmol/L (22-30); Chloride 105 mmol/L (98-107); Glucose 121 mg/dL (74-99); Non-African American GFR(MDRD) >60 (>60 ml/min/1.73 sqM); Potassium 4.3 mmol/L (3.5-5.1); Sodium 142 mmol/L (137-145); Total Bilirubin 0.5 mg/dL (0.2-1.3); Total Protein 6.9 g/dL (6.3-8.2)
== END ==
LOC: LABWHC1 16:20
PROVIDERS: ATTEND Internal Medicine Critical Care Medicine
DX: I10 Essential (primary) hypertension (principal); J84.10 Pulmonary fibrosis, unspecified; Z79.899 Other long term (current) drug therapy
CPT/HCPCS: 36415; 80053; 82248

== ENCOUNTER → 2017-04-06 | Outpatient (CLI) | payer MEDICARE, OTHER | END | disposition home or self-care (01) | LOC: LABWHC1 10:12 | PROVIDERS: ATTEND Internal Medicine Endocrinology, Diabetes & Metabolism | DX: E03.8 Other specified hypothyroidism (principal) | CPT/HCPCS: 36415; 84443 ==

== ENCOUNTER → 2017-05-17 | Outpatient (CLI) | payer MEDICARE, OTHER ==
[2017-05-17 10:53] LABS: ALT 53 U/L (9-52); AST 27 U/L (14-36); Alkaline Phosphatase 86 U/L (38-126); Anion Gap 10 mmol/L; Blood Urea Nitrogen 12 mg/dL (7-17); Calcium 9.3 mg/dL (8.4-10.2); Carbon Dioxide 28 mmol/L (22-30); Chloride 105 mmol/L (98-107); Cholesterol 147 mg/dL (<200); Glucose 91 mg/dL (74-99); HDL Cholesterol 57 mg/dL (40-60); Non-African American GFR(MDRD) >60 (>60 ml/min/1.73 sqM); Potassium 4.3 mmol/L (3.5-5.1); Sodium 143 mmol/L (137-145); Total Bilirubin 0.6 mg/dL (0.2-1.3); Total Protein 6.7 g/dL (6.3-8.2)
== END | disposition home or self-care (01) ==
LOC: LABWHC1 10:12
PROVIDERS: ATTEND Internal Medicine Interventional Cardiology
DX: E78.2 Mixed hyperlipidemia (principal)
CPT/HCPCS: 36415; 80053; 80061

== ENCOUNTER 2017-09-15 17:31 | Observation (INO) | payer MEDICARE ==
[2017-09-15] MEDS ORDERED: MORPHINE SULFATE 4 MG/ML SYRINGE IV PRN (17:38)
[2017-09-15] MEDS ORDERED: NITROGLYCERIN SL TABS 0.4 MG TAB SUBLINGUAL PRN (17:38)
[2017-09-15] MEDS ORDERED: SODIUM CHLORIDE 0.9% 1,000 ML IV STA (17:38)
[2017-09-15] MEDS ORDERED: HEPARIN SODIUM,PORCINE 5,000 UNIT/ML 1 ML VIAL IV PRN (17:38)
[2017-09-15] MEDS ORDERED: ASPIRIN 81 MG PO STA (17:38)
[2017-09-15] MEDS ORDERED: HEPARIN SODIUM,PORCINE 5,000 UNIT/ML 1 ML VIAL IV ONE (17:38)
[2017-09-15] MEDS ORDERED: HEPARIN SOD,PORK IN 0.45% NACL 25,000 UNIT in 0.45% NACL 1 500ML.BAG IV SCH (17:45)
--- NOTE | 2017-09-15 18:13 | ED ---
General Adult HPI - General Chief complaint: Chest Pain Stated complaint: Chest pain Time Seen by Provider: 09/15/17 17:38 Source: patient, RN notes reviewed, old records reviewed Mode of arrival: wheelchair Limitations: no limitations - History of Present Illness Initial comments: This is a 37-year-old female to the ER for evasive chest pain. Patient has strong history of heart disease with history of chest pain, patient states that she's been going through some increased stress lately, states that this feels like prior issues with heart disease and prior stents. Patient denies diaphoresis, she states she also noticed that she has increased lower extremity edema. Pain is worse with activity, it was improved today with nitro - Related Data Home Medications Medication Instructions Recorded Confirmed Benzonatate 100 mg PO DAILY 04/12/15 09/15/17 azaTHIOprine [Imuran] 50 mg PO DAILY 04/12/15 09/15/17 Alendronate Sodium [Fosamax] 70 mg PO RDZ 09/15/17 09/15/17 Levothyroxine Sodium [Synthroid] 75 mcg PO DAILY 09/15/17 09/15/17 Losartan [Cozaar] 25 mg PO DAILY 09/15/17 09/15/17 predniSONE 2.5 mg PO DAILY 09/15/17 09/15/17 Previous Rx's Medication Instructions Recorded Atorvastatin [Lipitor] 80 mg PO HS #1 tab 04/14/15 Metoprolol Tartrate [Lopressor] 25 mg PO BID #1 tab 04/14/15 Nitroglycerin Sl Tabs [Nitrostat] 0.4 mg SUBLINGUAL Q5M PRN #1 tab 04/14/15 Omeprazole [PriLOSEC] 40 mg PO AC-BRKFST #14 cap 07/29/15 Aspirin EC [Ecotrin Low Dose] 81 mg PO DAILY #0 09/23/16 Nitroglycerin Sl Tabs [Nitrostat] 0.4 mg SUBLINGUAL Q5M PRN #25 tab 09/17/17 Allergies Allergy/AdvReac Type Severity Reaction Status Date / Time Sulfa (Sulfonamide Allergy Dyspnea Verified 09/15/17 20:13 Antibiotics) morphine AdvReac Abdominal Verified 09/16/17 00:34 Pain Review of Systems ROS Statement: Those systems with pertinent positive or pertinent negative responses have been documented in the HPI. ROS Other: All systems not noted in ROS Statement are negative. Past Medical History Past Medical History: Coronary Artery Disease (CAD), Hyperlipidemia, Hypertension, Myocardial Infarction ([place]), Pneumonia, Thyroid Disorder Additional Past Medical History / Comment(s): recently d/c from [facility] w/ epigastric pain/chest pain-was thought to be related to gallstones-had heart cath while here-wnl per pt., Idiopathic pulmonary fibrosis, hypothyroidism, daily steroids for several yrs. Last Myocardial Infarction Date:: 04/12/15, 06/12/15 History of Any Multi-Drug Resistant Organisms: None Reported Past Surgical History: Section, Heart Catheterization With Stent, Hysterectomy, Tonsillectomy Additional Past Surgical History / Comment(s): Open lung biopsy, heart cath. , x 1, colonoscopy, R breast biopsy Past Anesthesia/Blood Transfusion Reactions: No Reported Reaction Date of Last Stent Placement:: 04/12/15 Past Psychological History: No Psychological Hx Reported Smoking Status: Never smoker Past Alcohol Use History: None Reported Past Drug Use History: None Reported - Past Family History Mother Family Medical History: Coronary Artery Disease (CAD), Diabetes Mellitus, Hyperlipidemia, Myocardial Infarction ([place]), Thyroid Disorder Additional Family Medical History / Comment(s): DIVERTICULITS Father Family Medical History: Dementia, Diabetes Mellitus General Exam Limitations: no limitations General appearance: alert, in no apparent distress Head exam: Present: atraumatic, normocephalic, normal inspection Eye exam: Present: normal appearance, PERRL, EOMI. Absent: scleral icterus, conjunctival injection, periorbital swelling ENT exam: Present: normal exam, mucous membranes moist Neck exam: Present: normal inspection. Absent: tenderness, meningismus, lymphadenopathy Respiratory exam: Present: normal lung sounds bilaterally. Absent: respiratory distress, wheezes, rales, rhonchi, stridor Cardiovascular Exam: Present: regular rate, normal rhythm, normal heart sounds. Absent: systolic murmur, diastolic murmur, rubs, gallop, clicks GI/Abdominal exam: Present: soft, normal bowel sounds. Absent: distended, tenderness, guarding, rebound, rigid Extremities exam: Present: normal inspection, full ROM, normal capillary refill. Absent: tenderness, pedal edema, joint swelling, calf tenderness Back exam: Present: normal inspection Neurological exam: Present: alert, oriented X3, CN II-XII intact Psychiatric exam: Present: normal affect, normal mood Skin exam: Present: warm, dry, intact, normal color. Absent: rash Course Vital Signs 09/15/17 09/15/17 09/15/17 17:34 18:00 18:03 Temperature 99.1 F Pulse Rate 77 64 Pulse Rate [ 72 Marine Plumber ] Respiratory 16 18 Rate Blood Pressure 143/72 141/67 O2 Sat by Pulse 97 97 Oximetry 09/15/17 19:27 Temperature Pulse Rate 60 Pulse Rate [ Marine Plumber ] Respiratory 18 Rate Blood Pressure 149/70 O2 Sat by Pulse 97 Oximetry EKG Findings - EKG Comments: EKG Findings:: EKG shows normal sinus rhythm rate of 69, [place] 146, QRS 86, QTc 435 Medical Decision Making - Medical Decision Making 57 female the ER for evasive chest pain. History of heart disease. Patient to be admitted for cardiac observation - Lab Data Result diagrams: 09/16/17 06:17 09/17/17 07:55 - Radiology Data Radiology results: report reviewed (Chest x-rays negative for acute disease), image reviewed Critical Care Time Critical Care Time: Yes Total Critical Care Time: 31 Disposition Clinical Impression: Chest pain, Presence of stent in LAD coronary artery Disposition: ADMITTED IP TO THIS HOSP Condition: Undetermined
[2017-09-15 18:15] LABS: Basophils % (A) 1 %; Eosinophils # (A) 0.1 k/uL (0-0.7); Eosinophils % (A) 2 %; HCT 41.1 % (34.0-46.0); HGB 13.3 gm/dL (11.4-16.0); Lymphocytes % (A) 19 %; MCHC 32.3 g/dL (31.0-37.0); Monocytes # (A) 0.4 k/uL (0-1.0); Monocytes % (A) 8 %; Neutrophils # (A) 3.5 k/uL (1.3-7.7); Neutrophils % (A) 68 %; Platelet Count 258 k/uL (150-450); RBC 4.29 m/uL (3.80-5.40); RDW 13.3 % (11.5-15.5); WBC 5.1 k/uL (3.8-10.6)
[2017-09-15 18:25] LABS: ALT 48 U/L (9-52); AST 35 U/L (14-36); Albumin 3.7 g/dL (3.5-5.0); Alkaline Phosphatase 50 U/L (38-126); Anion Gap 10 mmol/L; Blood Urea Nitrogen 17 mg/dL (7-17); Calcium 9.2 mg/dL (8.4-10.2); Carbon Dioxide 25 mmol/L (22-30); Chloride 106 mmol/L (98-107); Glucose 153 mg/dL (74-99); Lipase 259 U/L (23-300); Magnesium 2.2 mg/dL (1.6-2.3); Potassium 3.9 mmol/L (3.5-5.1); Sodium 141 mmol/L (137-145); Total Bilirubin 0.2 mg/dL (0.2-1.3); Total Protein 6.1 g/dL (6.3-8.2)
--- NOTE | 2017-09-15 18:35 | XR ---
EXAMINATION TYPE: XR chest 2V DATE OF EXAM: 09/15/2017 COMPARISON: 07/23/2017 HISTORY: Chest pain TECHNIQUE: Frontal and lateral views of the chest are obtained. FINDINGS: There is some mild patchy infiltrate and atelectasis at the lung bases. There is no gross heart failure. Heart size is normal. There are chest leads. I see no pleural effusion. Bony thorax is intact. IMPRESSION: There is some mild infiltrate and atelectasis at the lung bases that is improved compare d to last exam. No heart failure.
[2017-09-15 18:48] LABS: Creatine Kinase 80 U/L (30-135)
[2017-09-15 18:51] LABS: Prothrombin Time 9.8 sec (9.0-12.0)
[2017-09-15 19:00] LABS: Partial Thromboplastin Time 21.2 sec (22.0-30.0)
[2017-09-15 19:01] LABS: Creatine Kinase MB 0.4 ng/mL (0.0-2.4); Troponin I <0.012 ng/mL (0.000-0.034)
[2017-09-15 20:32] VITALS: BMI 26.2
[2017-09-15] MEDS: METOPROLOL TARTRATE 25 MG TAB PO SCH (20:33)
[2017-09-15] MEDS ORDERED: MAG HYDROX/AL HYDROX/SIMETH 30 ML CUP PO PRN (23:44)
[2017-09-16 01:24] LABS: Creatine Kinase MB 0.4 ng/mL (0.0-2.4); Troponin I <0.012 ng/mL (0.000-0.034)
[2017-09-16 01:27] LABS: Creatine Kinase 66 U/L (30-135)
[2017-09-16 06:42] LABS: Platelet Count 221 k/uL (150-450)
[2017-09-16 06:59] LABS: Cholesterol 155 mg/dL (<200); HDL Cholesterol 58 mg/dL (40-60); LDL Cholesterol,Calculated 80 mg/dL (0-99); Triglycerides 83 mg/dL (<150)
[2017-09-16] MEDS: ACETAMINOPHEN TAB 325 MG TAB PO PRN ×2 (07:16→20:33)
[2017-09-16] MEDS ORDERED: ATORVASTATIN 80 MG TAB PO SCH (09:00)
[2017-09-16] MEDS ORDERED: ASPIRIN 325 MG TAB PO SCH (09:00)
[2017-09-16] MEDS ORDERED: ASPIRIN 81 MG PO SCH ×2 (09:00→15:30)
--- NOTE | 2017-09-16 11:57 | ECHOF ---
Referral Reason:chest pain MEASUREMENTS -------- HEIGHT: 157.5 cm WEIGHT: 64.9 kg BP: RVIDd: 2.6 cm (< 3.3) IVSd: 0.8 cm (0.6 - 1.1) LVIDd: 4.3 cm (3.9 - 5.3) LVPWd: 1.1 cm (0.6 - 1.1) IVSs: 1.3 cm LVIDs: 3.4 cm LVPWs: 1.2 cm LA Diam: 2.8 cm (2.7 - 3.8) LAESV Index (A-L): 25.09 ml/m Ao Diam: 2.6 cm (2.0 - 3.7) AV Cusp: 1.7 cm (1.5 - 2.6) LA Diam: 3.6 cm (2.7 - 3.8) MV EXCURSION: 18.048 mm (> 18.000) MV EF SLOPE: 104 mm/s (70 - 150) EPSS: 0.6 cm MV E Kevin: 0.65 m/s MV DecT: 167 ms MV A Kevin: 0.64 m/s MV E/A Ratio: 1.01 RAP: 5.00 mmHg RVSP: 25.25 mmHg FINDINGS -------- Sinus rhythm. This was a technically good study. The left ventricular size is normal. Left ventricular wall thickness is normal. Overall left vent ricular systolic function is normal with, an EF between 55 - 60 %. The right ventricle is normal in size. Normal LA size by volume 22+/-6 ml/m2. The right atrial size is normal. The aortic valve is trileaflet, and appears structurally normal. No aortic stenosis or regurgitation. The mitral valve is normal. Mild mitral regurgitation is present. Mild tricuspid regurgitation present. There is no evidence of pulmonary hypertension. The right v entricular systolic pressure, as measured by Doppler, is 25.25mmHg. There is no pulmonic regurgitation present. The aortic root size is normal. There is no pericardial effusion. CONCLUSIONS -------- 1. Sinus rhythm. 2. This was a technically good study. 3. The left ventricular size is normal. 4. Left ventricular wall thickness is normal. 5. Overall left ventricular systolic function is normal with, an EF between 55 - 60 %. 6. Normal LA size by volume 22+/-6 ml/m2. 7. The aortic valve is trileaflet, and appears structurally normal. No aortic stenosis or regurgitati on. 8. Mild mitral regurgitation is present. 9. Mild tricuspid regurgitation present. 10. There is no evidence of pulmonary hypertension. 11. There is no pulmonic regurgitation present. 12. The aortic root size is normal. 13. There is no pericardial effusion. BRASS BUFFER: Cierra Moya RDCS
--- NOTE | 2017-09-16 12:02 | NM ---
EXAMINATION TYPE: NM stress cardiolite complete DATE OF EXAM: 09/16/2017 COMPARISON: NONE HISTORY: Chest pain TECHNIQUE: After the intravenous administration of 11.8 mCi Tc 99m Sestamibi - Rest images obtained 45 minutes post injection. The patient exercised using a ALEXANDRA protocol and 1 minute prior to peak exercise was injected with 26.8 mCi Tc 99m Sestamibi - Stress images obtained 10 minutes post injecti on. FINDINGS: Targeted heart rate was achieved during performance of the study. Review of stress and rest SPECT yo ges demonstrates tiny area of stress-induced reversibility involving the apical anterior which may be artifactual.. Gated analysis shows normal wall motion with an estimated left ventricular ejection f raction of 64 %. IMPRESSION: Tiny area of stress-induced reversibility involving the apical anterior may be artifactual correlate clinically to exclude a small area of stress-induced reversibility.
[2017-09-16] MEDS ORDERED: SODIUM CHLORIDE 0.9% 1,000 ML in EMPTY BAG 1 BAG IV ONE (12:54)
[2017-09-16] MEDS ORDERED: ASPIRIN 325 MG TAB PO STA (12:54)
[2017-09-16] MEDS ORDERED: ALPRAZolam 0.25 MG TAB PO PRN (12:54)
[2017-09-16] MEDS ORDERED: ALPRAZolam 0.5 MG TAB PO PRN (12:54)
[2017-09-16] MEDS ORDERED: NITROGLYCERIN SL TABS 0.4 MG TAB SUBLINGUAL PRN ×2 (12:54→14:54)
--- NOTE | 2017-09-16 13:59 | P.CRDCN ---
History of Present Illness Consult date: 09/16/17 Consult reason: chest pain History of present illness: Mrs. Dobbs is a pleasant 57-year-old female past medical history significant for coronary artery disease, dyslipidemia, hypertension and hypothyroid. She sees Dr. Beasley in the office. We have been asked to see her in consultation for complaints of chest pain. She states over the last few days she has been having mid-sternal chest pain and pressure. The pain radiates up into her neck on the left side at times. She denies associated shortness of breath, palpitations, dizziness, nausea, vomiting or diaphoresis. The pain comes at rest with no specific aggravating or alleviating factors. She also noticed last night there was an increase in swelling of her lower extremities. She also states she has been under considerable stress recently with the of an aunt, having to place her father in an extended care facility and she is the primary caregiver of her mother who has cancer and is actively undergoing chemotherapy treatment. She has had no further episodes of chest pain since admission, telemetry tracings have been unremarkable. EKG on arrival reveals sinus mechanism with no acute ST or T-wave abnormalities. Chest xray reveals mild infiltrate and atelectasis b/l bases with improvement from previous exam. No evidence of heart failure. Laboratory data reviewed, hgb 13.3, plt 221, potassium 3.9, magnesium 2.2, cardiac enzymes negative x2. LDL 50, HDL 58. Current cardiac medications include Lopressor 25 mg twice a day, losartan 25 mg daily, atorvastatin 80 mg daily and aspirin 81 mg daily. Most recent cardiac catheterization from September 2016 reveals a patent stent in the mid LAD, no obstructive disease of the left circumflex system and no obstructive disease RCA. Most recent echocardiogram performed September 2016 revealed preserved left ventricular systolic function with ejection fraction 55-60%. Review of Systems At the time of my exam: CONSTITUTIONAL: Denies fever. Denies chills. EYES: Denies blurred vision. Denies vision changes. Denies eye pain. EARS, NOSE, MOUTH & THROAT: Denies headache. Denies sore throat. Denies ear pain. CARDIOVASCULAR: Denies chest pain. Denies shortness of breath. Denies orthopnea. Denies PND. Denies palpitations. RESPIRATORY: Denies cough. GASTROINTESTINAL: Denies abdominal pain. Denies diarrhea. Denies constipation. Denies nausea. Denies vomiting. MUSCULOSKELETAL: Denies myalgias. INTEGUMENTARY: Denies pruitis. Denies rash. NEUROLOGIC: Denies numbness. Denies tingling. Denies weakness. PSYCHIATRIC: Denies anxiety. Denies depression. ENDOCRINE: Denies fatigue. Denies weight change. Denies polydipsia. Denies polyurina. GENITOURINARY: Denies burning, hematuria or urgency with micturation. HEMATOLOGIC: Denies history of anemia. Denies bleeding. Past Medical History Past Medical History: Coronary Artery Disease (CAD), Hyperlipidemia, Hypertension, Myocardial Infarction (AR), Pneumonia, Thyroid Disorder Additional Past Medical History / Comment(s): recently d/c from [facility] w/ epigastric pain/chest pain-was thought to be related to gallstones-had heart cath while here-wnl per pt., Idiopathic pulmonary fibrosis, hypothyroidism, daily steroids for several yrs. Last Myocardial Infarction Date:: 04/12/15, 06/12/15 History of Any Multi-Drug Resistant Organisms: None Reported Past Surgical History: Section, Heart Catheterization With Stent, Hysterectomy, Tonsillectomy Additional Past Surgical History / Comment(s): Open lung biopsy, heart cath. , x 1, colonoscopy, R breast biopsy Past Anesthesia/Blood Transfusion Reactions: No Reported Reaction Date of Last Stent Placement:: 04/12/15 Past Psychological History: No Psychological Hx Reported Smoking Status: Never smoker Past Alcohol Use History: None Reported Past Drug Use History: None Reported - Past Family History Mother Family Medical History: Coronary Artery Disease (CAD), Diabetes Mellitus, Hyperlipidemia, Myocardial Infarction (AR), Thyroid Disorder Additional Family Medical History / Comment(s): DIVERTICULITS Father Family Medical History: Dementia, Diabetes Mellitus Additional Family Medical History / Comment(s): multiple myloma, parkinsons Medications and Allergies Home Medications Medication Instructions Recorded Confirmed Type Benzonatate 100 mg PO DAILY 04/12/15 09/15/17 History azaTHIOprine [Imuran] 50 mg PO DAILY 04/12/15 09/15/17 History Atorvastatin [Lipitor] 80 mg PO HS #1 tab 04/14/15 09/15/17 Rx Metoprolol Tartrate [Lopressor] 25 mg PO BID #1 tab 04/14/15 09/15/17 Rx Nitroglycerin Sl Tabs [Nitrostat] 0.4 mg SUBLINGUAL Q5M PRN #1 tab 04/14/15 Rx Omeprazole [PriLOSEC] 40 mg PO AC-BRKFST #14 cap 07/29/15 09/15/17 Rx Aspirin EC [Ecotrin Low Dose] 81 mg PO DAILY #0 09/23/16 09/15/17 Rx Alendronate Sodium [Fosamax] 70 mg PO RDZ 09/15/17 09/15/17 History Levothyroxine Sodium [Synthroid] 75 mcg PO DAILY 09/15/17 09/15/17 History Losartan [Cozaar] 25 mg PO DAILY 09/15/17 09/15/17 History predniSONE 2.5 mg PO DAILY 09/15/17 09/15/17 History Allergies Allergy/AdvReac Type Severity Reaction Status Date / Time Sulfa (Sulfonamide Allergy Dyspnea Verified 09/15/17 20:13 Antibiotics) morphine AdvReac Abdominal Verified 09/16/17 00:34 Pain Physical Exam Vitals: Vital Signs Temp Pulse Pulse Pulse Resp BP BP 09/16/17 08:00 98.4 F 63 16 119/62 09/16/17 04:00 17 09/16/17 03:07 97.6 F 65 17 104/53 09/16/17 00:00 97.9 F 62 16 102/43 09/15/17 23:58 16 09/15/17 20:09 97.3 F L 67 16 138/64 09/15/17 20:00 16 09/15/17 19:27 60 18 149/70 09/15/17 18:03 64 18 141/67 09/15/17 18:00 72 09/15/17 17:34 99.1 F 77 16 143/72 Pulse Ox 09/16/17 08:00 95 09/16/17 04:00 09/16/17 03:07 96 09/16/17 00:00 94 L 09/15/17 23:58 09/15/17 20:09 97 09/15/17 20:00 09/15/17 19:27 97 09/15/17 18:03 97 09/15/17 18:00 09/15/17 17:34 97 Intake and Output 09/15/17 09/16/17 09/16/17 22:59 06:59 14:59 Other: Voiding Method Toilet # Voids 1 1 Weight 64.9 kg Blood pressure 104/53 heart rate 65 afebrile GENERAL: This is a 57-year-old female in no apparent distress at the time of my examination. HEENT: Head is atraumatic, normocephalic. Pupils are equal, round. Sclerae anicteric. Conjunctivae are clear. Mucous membranes of the mouth are moist. Neck is supple. There is no jugular venous distention. No carotid bruit is heard. LUNGS: Clear to auscultation no wheezes, rales or rhonchi. No chest wall tenderness is noted on palpation or with deep breathing. HEART: Regular rate and rhythm without murmurs, rubs or gallops. S1 and S2 heard. ABDOMEN: Soft, nontender. Bowel sounds are heard. No organomegaly noted. EXTREMITIES: No evidence of peripheral edema and no calf tenderness noted. VASCULAR: Radial and dorsalis pedis pulses palpated, no evidence of clubbing. NEUROLOGIC: Patient is awake, alert and oriented x3. Results 09/16/17 06:17 09/15/17 17:55 Cardiac Enzymes 09/15/17 09/15/17 09/16/17 Range/Units 17:55 17:55 00:34 AST 35 (14-36) U/L CK-MB (CK-2) 0.4 0.4 (0.0-2.4) ng/mL Troponin I <0.012 <0.012 (0.000-0.034) ng/mL Coagulation 09/15/17 09/16/17 09/16/17 Range/Units 17:55 00:34 06:17 PT 9.8 (9.0-12.0) sec APTT 21.2 L 74.2 H 58.4 H (22.0-30.0) sec Lipids 09/16/17 Range/Units 06:17 Triglycerides 83 (<150) mg/dL Cholesterol 155 (<200) mg/dL HDL Cholesterol 58 (40-60) mg/dL CBC 09/15/17 09/16/17 Range/Units 17:55 06:17 WBC 5.1 (3.8-10.6) k/uL RBC 4.29 (3.80-5.40) m/uL Hgb 13.3 (11.4-16.0) gm/dL Hct 41.1 (34.0-46.0) % Plt Count 258 221 (150-450) k/uL Comprehensive Metabolic Panel 09/15/17 Range/Units 17:55 Sodium 141 (137-145) mmol/L Potassium 3.9 (3.5-5.1) mmol/L Chloride 106 (98-107) mmol/L Carbon Dioxide 25 (22-30) mmol/L BUN 17 (7-17) mg/dL Creatinine 1.00 (0.52-1.04) mg/dL Glucose 153 H (74-99) mg/dL Calcium 9.2 (8.4-10.2) mg/dL AST 35 (14-36) U/L ALT 48 (9-52) U/L Alkaline Phosphatase 50 (38-126) U/L Total Protein 6.1 L (6.3-8.2) g/dL Albumin 3.7 (3.5-5.0) g/dL Current Medications Generic Name Dose Route Start Last Admin Trade Name Freq PRN Reason Stop Dose Admin Acetaminophen 650 mg 09/16/17 00:33 09/16/17 07:16 Tylenol Tab PO 650 mg Q4HR PRN Administration Fever and/ or Pain Al Hydroxide/Mg Hydroxide 30 ml 09/15/17 23:44 09/16/17 00:06 Maalox PO 30 ml Q4HR PRN Administration GI Upset Aspirin 81 mg 09/16/17 09:00 Aspirin PO DAILY [facility] Atorvastatin Calcium 80 mg 09/16/17 09:00 Lipitor PO DAILY [facility] Heparin Sodium (Porcine) 0 unit 09/15/17 17:38 Heparin IV Q6HR PRN Low PTT Protocol Metoprolol Tartrate 25 mg 09/15/17 21:00 09/15/17 20:33 Lopressor PO 25 mg BID POP Administration Nitroglycerin 0.4 mg 09/15/17 17:38 09/15/17 18:33 Nitrostat SUBLINGUAL 0.4 mg Q5M PRN Administration Chest Pain Intake and Output 09/15/17 09/16/17 09/16/17 22:59 06:59 14:59 Other: Voiding Method Toilet # Voids 1 1 Weight 64.9 kg 09/16/17 06:17 02/14/18 17:55 Assessment and Plan Assessment: ASSESSMENT 1. Chest pain, atypical with no EKG evidence of ischemia and cardiac enzymes are negative. 2. History of known coronary artery disease 3. Hypertension 4. Dyslipidemia PLAN Obtain 2D echocardiogram and doppler study to assess cardiac structure and function. Perform Cardiolyte stress test to assess for reversible cardiac ischemia. Further recommendations will be based upon clinical findings. Thank you kindly for this consultation. Nurse Practitioner note has been reviewed, I agree with a documented findings and plan of care. Patient was seen and examined.
--- NOTE | 2017-09-16 14:01 | P.PN ---
Progress Note - Text Progress Note Date: 09/16/17 Cardiolite stress test reveals tiny area of stress-induced reversibility involving the apical anterior region. Ejection fraction on stress test is 64%. These films were reviewed by Dr. Beasley. We recommend proceeding forward with cardiac catheterization in the morning. I have discussed the risks, benefits and alternative therapies for the above-mentioned procedure and for both sedation/analgesia as well as necessary blood product administration, if indicated, as they pertain to this patient. The patient has indicated understanding and acceptance of the risks and procedures discussed. Questions have been answered appropriately and she is agreeable to move forward with the above stated procedure. Case has been ordered for tomorrow morning at [address] Beasley. She will remain nothing by mouth after midnight tonight.
[2017-09-16] MEDS: METOPROLOL TARTRATE 25 MG TAB PO SCH ×2 (14:10→20:30)
[2017-09-16] MEDS ORDERED: RX INFO: IV CONTRAST WAS GIVEN 1 EACH MISC MISCELLANE PRN (14:53)
[2017-09-16] MEDS ORDERED: METOPROLOL TARTRATE 25 MG TAB PO SCH (15:00)
--- NOTE | 2017-09-16 15:21 | HP ---
HISTORY AND PHYSICAL DATE OF ADMISSION: September 15, 2017. PRESENT COMPLAINT: Chest pain. HISTORY OF PRESENTING COMPLAINT: This is a very pleasant, 57 -year-old patient of Dr. Farmer. Chronic stable medical conditions include idiopathic pulmonary fibrosis, hypertension, hyperlipidemia, hypothyroid. The patient has a known history of coronary artery disease with stent in 2014. The patient did have a cardiac catheterization September of last year and a patent stent was found. Echocardiogram was negative. The patient has been going through a lot of stress, taking care of her elderly parents. For 3 or 4 days, patient having episodes of chest pain. Patient had gone to her aunt's yesterday and felt a heavy sensation in the chest going up to the neck, lasted for a good 1 hour. The patient felt a bit dizzy. There was no shortness of breath. No perspiration. No nausea. The patient also noticed some edema lower extremities with no orthopnea and nitroglycerin did help. Given cardiac history, she was admitted for possible unstable angina. REVIEW OF SYSTEMS: CONSTITUTIONAL: None. HEENT none. Respiratory none. Cardiovascular as above. Gastrointestinal none. Genitourinary none. Musculoskeletal none. Dermatological and hematologic, lymphatic none. Psychiatry none. Neurological none. PAST MEDICAL HISTORY: Idiopathic pulmonary fibrosis, hypertension, hyperlipidemia, hypothyroid, coronary artery disease with stent. PAST SURGICAL HISTORY: , cardiac cath with stent, hysterectomy, tonsillectomy, open lung biopsy, cardiac catheterization 09/21/16 showing patent stent, right breast biopsies. SOCIAL HISTORY: Lives by herself. Does not smoke or drink alcohol. FAMILY HISTORY: Coronary artery diabetes, hypertension, hyperlipidemia and hypothyroid. HOME MEDICATIONS: 1. Prednisone 2.5 p.o. daily. 2. Imuran 50 mg p.o. daily. 3. Prilosec 40 mg with breakfast. 4. Nitrostat 0.4 sublingual q.5 p.r.n. 5. Lopressor 25 p.o. b.i.d. 6. Cozaar 25 p.o. daily. 7. Synthroid 75 mcg p.o. daily. 8. Benzonatate 100 mg p.o. daily. 9. Lipitor 80 mg p.o. q.h.s. 10.Aspirin 81 mg p.o. daily. 11.Fosamax 70 mcg p.o. on Sundays. ALLERGY: TO MORPHINE AND SULFUR. EXAMINATION: Vital signs on presentation: Temperature 99.1, pulse 87, respirations 16, blood pressure 143/72, pulse ox 97% on room air. General appearance: Average build, sitting up, somewhat anxious-appearing. Eyes: Pupils equal. Conjunctivae are normal. HEENT: Oral cavity normal. Neck JVD not raised. Mass not palpable. Respiratory effort lungs are clear. Cardiovascular 1st and 2nd sounds normal. No edema. ABDOMEN: Soft, nontender. Liver and spleen not palpable. Lymphatics: No lymph node palpable in the neck and axilla. Psychiatry alert and oriented times three. Mood and affect normal. Neurological: Pupils equal. Cranial nerves grossly intact. Power and sensation grossly intact. INVESTIGATIONS: White count 5.1, hemoglobin 13.3, potassium 3.9. BUN and creatinine is normal. Troponin x2 negative. EKG shows normal sinus rhythm. 2D echocardiogram with no wall motion abnormality. ASSESSMENT: 1. Possible unstable angina in a patient with known coronary artery disease with stent placed in 2014. Repeat cardiac cath in September of last year showing a patent stent. 2. Idiopathic pulmonary fibrosis. 3. Essential hypertension. 4. Hyperlipidemia. 5. Hypothyroidism. PLAN: Home medications are resumed. Cardiac enzymes done. Cardiology was consulted who had ordered a stress test. We will rule out PE. Care was discussed with the patient. Copy to Dr. Jere Farmer. MMKEVINL / LAILA: [id number] /
--- NOTE | 2017-09-16 16:32 | CT ---
EXAMINATION TYPE: CT angio chest DATE OF EXAM: 09/16/2017 COMPARISON: Prior CT chest 01/25/2015 HISTORY: Chest pain with shortness of breath CT DLP: 172.1 mGycm Automated exposure control for dose reduction was used. CONTRAST: CTA scan of the thorax is performed with IV Contrast, patient injected with 80 mL of Omnipaque 350, p ulmonary embolism protocol. MIP images are created and reviewed. 3D reconstructed images are create d on an independent workstation and reviewed. FINDINGS: LUNGS: The lungs show a similar appearance with areas of honeycombing and groundglass opacity, cyst f ormation at the posterior lung bases similar to prior exam, lingula and right middle lobe somewhat le ss affected AORTA: No additional significant abnormality is seen. MEDIASTINUM: There is satisfactory enhancement of the pulmonary artery and its branches, there is no CT evidence for pulmonary embolism. Aorticopulmonary window node is stable and borderline enlarged bu t shows low attenuation No pericardial effusion is seen. OTHER: The heart is enlarged. Probable scarring again noted in the right middle lobe. There are flo nary artery calcifications. IMPRESSION: NO EVIDENT PULMONARY EMBOLISM. FINDINGS COMPATIBLE WITH INTERSTITIAL LUNG DISEASE NOTED ON PRIOR E XAM. CARDIOMEGALY, CORONARY ARTERY DISEASE.
[2017-09-16] MEDS: LOSARTAN 25 MG TAB PO SCH (17:12)
[2017-09-16] MEDS: PANTOPRAZOLE 40 MG TABLET PO SCH (17:12)
[2017-09-16] MEDS: LEVOTHYROXINE 75 MCG TAB PO SCH (17:12)
[2017-09-16] MEDS: azaTHIOprine 50 MG TAB PO SCH (17:12)
[2017-09-16] MEDS: predniSONE 2.5 MG TAB PO SCH (17:12)
[2017-09-16] MEDS: BENZONATATE 100 MG CAP PO SCH (17:12)
[2017-09-17] MEDS: ACETAMINOPHEN TAB 325 MG TAB PO PRN ×2 (04:47→16:06)
[2017-09-17] MEDS: predniSONE 2.5 MG TAB PO SCH (05:56)
[2017-09-17] MEDS: PANTOPRAZOLE 40 MG TABLET PO SCH (05:56)
[2017-09-17] MEDS: LOSARTAN 25 MG TAB PO SCH (05:57)
[2017-09-17] MEDS: METOPROLOL TARTRATE 25 MG TAB PO SCH (05:57)
[2017-09-17] MEDS: azaTHIOprine 50 MG TAB PO SCH (05:58)
[2017-09-17] MEDS: LEVOTHYROXINE 75 MCG TAB PO SCH (05:58)
[2017-09-17] MEDS: BENZONATATE 100 MG CAP PO SCH (05:58)
[2017-09-17] MEDS ORDERED: ASPIRIN 325 MG TAB PO ONE (06:00)
[2017-09-17] MEDS ORDERED: IV FLUID CONTINUATION 1,000 ML IV ONE (07:18)
[2017-09-17] MEDS ORDERED: diphenhydrAMINE 50 MG/ML 1 ML VIAL ONE (07:32)
[2017-09-17] MEDS ORDERED: LIDOCAINE 2% INJ 20 MG/ML (20 ML MDV) ONE (07:32)
[2017-09-17] MEDS ORDERED: fentaNYL (PF) 50 MCG/ML 2 ML AMP ONE (07:32)
[2017-09-17] MEDS ORDERED: VERAPAMIL 2.5 MG/ML 2 ML AMP ONE (07:32)
[2017-09-17] MEDS ORDERED: diphenhydrAMINE 50 MG/ML 1 ML VIAL IVP ONE (07:45)
[2017-09-17] MEDS ORDERED: fentaNYL (PF) 50 MCG/ML 2 ML AMP IV ONE (07:46)
[2017-09-17] MEDS ORDERED: LIDOCAINE 2% INJ 20 MG/ML SQ ONE (07:48)
[2017-09-17] MEDS ORDERED: VERAPAMIL SYRINGE (5 MG/10 ML) INTRAARTER ONE (07:56)
[2017-09-17] MEDS ORDERED: HEPARIN SODIUM 1,000 UN/ML (10ML VL) ONE (07:58)
[2017-09-17] MEDS ORDERED: HEPARIN SODIUM 1,000 UN/ML (10ML VL) IV ONE (08:00)
[2017-09-17] MEDS ORDERED: IOHEXOL 350 MG/ML 125ML BOTTLE INJ ONE (08:04)
[2017-09-17] MEDS ORDERED: RX INFO: IV CONTRAST WAS GIVEN 1 EACH MISC MISCELLANE PRN (08:16)
[2017-09-17 08:19] LABS: Blood Urea Nitrogen 13 mg/dL (7-17)
[2017-09-17] MEDS ORDERED: SODIUM CHLORIDE 0.9% 1,000 ML IV SCH (08:30)
--- NOTE | 2017-09-17 08:48 | EST ---
EXERCISE STRESS AGE: 57 SEX: F HT: 62" WT: 143 PROTOCOL: Cardiolite Stress Test STAGE: II DURATION OF EXERCISE: 7:30 HEART RATE REST: 65 BLOOD PRESSURE REST: 95/69 MAXIMUM HEART RATE ACHIEVED: 151 MAXIMUM BLOOD PRESSURE: 140/79 85% MPHR: 140 100% MPHR: 155 METS: 9.1 INDICATIONS: Chest pain. CLINICAL INFORMATION: Baseline rhythm is sinus mechanism, rate of 65. Normal axis and intervals. Poor R-wave progression. Baseline blood pressure 95/69 mmHg. Patient exercised on Adama protocol for 7 minutes, 30 seconds reaching peak rate of 151 beats per minute which is equal to 91% of maximum predicted heart rate. Peak blood pressure 140/79 mmHg. The test was terminated due to fatigue. There was no chest pain. Electrocardiographic monitoring revealed no evidence of diagnostic ischemic ST-T deviation. Cardiolite peak exercise. CONCLUSION: 1. Average exercise tolerance with normal electrocardiographic response to exercise. 2. Nuclear images will be reported separately. MMODL / IJN: [id number] /
[2017-09-17 08:58] VITALS: TEMP 98
--- NOTE | 2017-09-17 09:34 | CC ---
CARDIAC CATHETERIZATION REPORT Mrs. Dobbs is a 57-year-old female with known history of coronary disease status post percutaneous revascularization who presented with symptoms of chest discomfort. Her EKG and lab tests were unremarkable. She underwent a myocardial perfusion imaging that revealed anteroapical inducible ischemia. In view of that, recommendation was made regarding cardiac catheterization. The procedure as well as the risks and complications were discussed with the patient who is in full understanding and agreement. PROCEDURE: Patient was brought to the labor economist in a fasting semi-sedated state after receiving fentanyl and Benadryl and achieving moderate conscious sedated state. Using Xylocaine anesthesia in the Seldinger technique, a 6-Palauan sheath was introduced in the left radial artery. Selective right and left angiography was performed using 5-Palauan 4 bend right and left Hiral catheter. Multiple views of the coronary artery including hemiaxial view was obtained. Following that, 5-Palauan tight pigtail catheter was introduced in the left ventricle and a 30-degree JIMENEZ view of the left ventricle was obtained. Following that, catheter and sheaths were removed. Hemostasis was obtained with deployment of a TR band. There was no immediate complication. Patient is returned to her room in stable condition. Of note, the patient received intra-arterial verapamil as well as a 3500 units of intravenous heparin. FINDINGS: LEFT MAIN: This is a short size vessel bifurcating left circumflex and left anterior descending artery. Left main coronary artery is without any evidence of high-grade stenosis. LEFT ANTERIOR DESCENDING ARTERY: This is a large-sized vessel reaching to the apex with a wrap-around apex segment giving rise to 2 diagonal branches. The left anterior descending artery in the mid segment has a stented area with 10% to 20% restenosis. The rest of the vessel has no high-grade stenosis. LEFT CIRCUMFLEX: This is a nondominant vessel, large in caliber giving rise to a large obtuse marginal branch. The left circumflex as well as branches have no evidence of obstructive coronary artery disease. RIGHT CORONARY ARTERY: This is a dominant vessel, moderate in caliber bifurcating distally to PDA and PLV. The right coronary artery and its branches have no evidence of obstructive coronary artery disease. LEFT VENTRICULOGRAM: Left ventriculogram is performed in 30-degree JIMENEZ view and reveals normal left ventricular size and systolic function. Ejection fraction 60%. There was no significant mitral regurgitation. HEMODYNAMICS: There was no gradient across the aortic valve. The left ventricle end- diastolic pressure was 16 mmHg. CONCLUSION: 1. Mild intimal disease in the stented segment of the mid left anterior descending artery. 2. Normal left ventricular size and systolic function. RECOMMENDATION: In view of finding and anatomy, recommend continue medical therapy with the aggressive coronary risk modification. Those findings and recommendation were discussed with the patient. She was in full understanding and agreement. Duration of procedure is 17 minutes. MMODL / IJN: [id number] /
[2017-09-17 11:02] VITALS: RESP 18
[2017-09-17 15:38] VITALS: BP 121/66; PULSE 76
[2017-09-17] MEDS ORDERED: ATORVASTATIN 80 MG TAB PO SCH (21:00)
--- NOTE | 2017-09-20 00:52 | DS ---
DISCHARGE SUMMARY DATE OF ADMISSION: September 15, 2017. DATE OF DISCHARGE: September 17, 2017. FINAL DIAGNOSES: 1. Chest pain, could be psychosomatic from social stressors. 2. Coronary artery disease with known history of stent in 2014. Repeat cardiac cath in September of 2016 showing patent stent. 3. Idiopathic pulmonary fibrosis. 4. Essential hypertension. 5. Hyperlipidemia. 6. Hypothyroidism. PROCEDURE: Cardiac catheterization. HOSPITAL COURSE: This is a patient with known coronary artery disease with stent in 2014. Repeat cardiac cath in September of 2016 showing a patent stent. The patient going through significant family issues. . Presented with what could have been cardiac sounding presentation. Troponins were negative. Did undergo a Cardiolite stress test that so showed some suggestion of reversibility. Cardiac cath showed minimal disease. The patient is asymptomatic at the time of discharge. Up and about. No further chest pain. CONSULTATION: Dr. Beasley from Cardiology. EXAMINATION: Lungs are clear. Cardiovascular 1st and 2nd sounds normal. DISCHARGE MEDICATIONS: 1. Benzonatate 100 mg p.o. daily. 2. Imuran 50 mg p.o. daily. 3. Lipitor 80 mg q.h.s. 4. Lopressor 25 mg p.o. b.i.d. 5. Nitrostat 0.4 sublingual q.5 p.r.n. 6. Prilosec 40 mg p.o. with breakfast. 7. Aspirin 81 mg p.o. daily. 8. Fosamax 70 mg p.o. on Wednesday. 9. Synthroid 75 mcg p.o. daily. 10.Cozaar 25 mg p.o. daily. 11.Prednisone 2.5 mg p.o. daily. 12.Nitrostat 0.4 sublingual q.5 p.r.n. Follow up with Dr. Beasley on September 22, 2017. Follow up with Dr. Farmer in 3 days. Post cardiac cath orders. Copy to Dr. Farmer. MMODL / IJN: [id number] /
== END 2017-09-17 17:47 | disposition home or self-care (01) ==
LOC: EC 17:31 → 3OBS 17:38
PROVIDERS: ADMIT Hospitalist; ATTEND Hospitalist
DX: R07.89 Other chest pain (principal); I25.10 Atherosclerotic heart disease of native coronary artery without angina pectoris; I10 Essential (primary) hypertension; E78.5 Hyperlipidemia, unspecified; E03.9 Hypothyroidism, unspecified; J84.112 Idiopathic pulmonary fibrosis; Z60.9 Problem related to social environment, unspecified; Z95.5 Presence of coronary angioplasty implant and graft; Z79.82 Long term (current) use of aspirin; Z79.52 Long term (current) use of systemic steroids; Z79.899 Other long term (current) drug therapy; Z88.2 Allergy status to sulfonamides; Z88.5 Allergy status to narcotic agent; I25.2 Old myocardial infarction; Z87.01 Personal history of pneumonia (recurrent); Z83.3 Family history of diabetes mellitus; Z82.49 Family history of ischemic heart disease and other diseases of the circulatory system
CPT/HCPCS: 96376 ×2; 96361 ×2; 96365 ×2; 99291 ×2; 96366 ×2; 96375; 36415; 93005; 93017; 93306; 93458; 83880; 80061; 80053; 82565; 82550 ×2; 82553 ×2; 83690; 83735; 84520; 84484 ×2; 85025; 85049; 85610; 85730 ×2; 71046; 71275; 78452; G0378 ×3; C1894; C1769; A9500; J2001; J7500 ×2; J2270; J1200; J1644 ×3; Q9967 ×2; J3010; J7512 ×2

== ENCOUNTER → 2017-10-07 | Outpatient (CLI) | payer MEDICARE | LOC: LABWHC1 15:40 | PROVIDERS: ATTEND Internal Medicine Endocrinology, Diabetes & Metabolism | DX: E03.8 Other specified hypothyroidism (principal) | CPT/HCPCS: 36415; 84443 ==

== ENCOUNTER → 2018-11-29 | Outpatient (CLI) | payer MEDICARE | END | disposition home or self-care (01) | LOC: LABWHC1 07:21 | PROVIDERS: ATTEND Internal Medicine Endocrinology, Diabetes & Metabolism | DX: E03.8 Other specified hypothyroidism (principal) | CPT/HCPCS: 36415; 84443 ==

== ENCOUNTER 2018-12-28 14:28 | Emergency (ER) | payer MEDICARE ==
[2018-12-28 14:53] VITALS: TEMP 97.5
[2018-12-28] MEDS ORDERED: KETOROLAC 30 MG/ML 1 ML VIAL IM STA (15:44)
--- NOTE | 2018-12-28 15:46 | ED ---
General Adult HPI - General Chief complaint: Fall Stated complaint: Fall-Foot/Hand/Hip Pain Time Seen by Provider: 12/28/18 15:21 Source: patient, RN notes reviewed Mode of arrival: wheelchair Limitations: no limitations - History of Present Illness Initial comments: 58-year-old female presents to the emergency department for a chief complaint of fall. This occurred rectally one hour prior to arrival. Patient states she was walking into a garage when she went to take a step and missed and fell forward. Patient states she is having pain in her right radial wrist as well as her right hip and right foot and ankle. States she cannot bear weight on the right foot or ankle. States she has been on prednisone for 14 years due to pulmonary fibrosis so easily has fractures. Denies hitting her head or loss of consciousness.Patient has no other complaints at this time including shortness of breath, chest pain, abdominal pain, nausea or vomiting, headache, or visual changes. - Related Data Home Medications Medication Instructions Recorded Confirmed Benzonatate 100 mg PO DAILY 04/12/15 09/15/17 azaTHIOprine [Imuran] 50 mg PO DAILY 04/12/15 09/15/17 Alendronate Sodium [Fosamax] 70 mg PO RDZ 09/15/17 09/15/17 Levothyroxine Sodium [Synthroid] 75 mcg PO DAILY 09/15/17 09/15/17 Losartan [Cozaar] 25 mg PO DAILY 09/15/17 09/15/17 predniSONE 2.5 mg PO DAILY 09/15/17 09/15/17 Previous Rx's Medication Instructions Recorded Atorvastatin [Lipitor] 80 mg PO HS #1 tab 04/14/15 Metoprolol Tartrate [Lopressor] 25 mg PO BID #1 tab 04/14/15 Nitroglycerin Sl Tabs [Nitrostat] 0.4 mg SUBLINGUAL Q5M PRN #1 tab 04/14/15 Omeprazole [PriLOSEC] 40 mg PO AC-BRKFST #14 cap 07/29/15 Aspirin EC [Ecotrin Low Dose] 81 mg PO DAILY #0 09/23/16 Nitroglycerin Sl Tabs [Nitrostat] 0.4 mg SUBLINGUAL Q5M PRN #25 tab 09/17/17 Ibuprofen [Motrin] 600 mg PO Q8HR PRN #20 tab 05/29/19 Allergies Allergy/AdvReac Type Severity Reaction Status Date / Time Sulfa (Sulfonamide Allergy Dyspnea Verified 12/28/18 14:53 Antibiotics) morphine AdvReac Abdominal Verified 12/28/18 14:53 Pain Review of Systems ROS Statement: Those systems with pertinent positive or pertinent negative responses have been documented in the HPI. ROS Other: All systems not noted in ROS Statement are negative. Past Medical History Past Medical History: Coronary Artery Disease (CAD), Hyperlipidemia, Hypertension, Myocardial Infarction ([place]), Pneumonia, Thyroid Disorder Additional Past Medical History / Comment(s): Idiopathic pulmonary fibrosis, hypothyroidism, daily steroids for several yrs. Last Myocardial Infarction Date:: 04/12/15, 06/12/15 History of Any Multi-Drug Resistant Organisms: None Reported Past Surgical History: Section, Heart Catheterization With Stent, Hysterectomy, Tonsillectomy Additional Past Surgical History / Comment(s): Open lung biopsy, heart cath. 09-22-16, x 1, colonoscopy, R breast biopsy Past Anesthesia/Blood Transfusion Reactions: No Reported Reaction Date of Last Stent Placement:: 04/12/15 Past Psychological History: No Psychological Hx Reported Smoking Status: Never smoker Past Alcohol Use History: None Reported Past Drug Use History: None Reported - Past Family History Mother Family Medical History: Coronary Artery Disease (CAD), Diabetes Mellitus, Hyperlipidemia, Myocardial Infarction ([place]), Thyroid Disorder Additional Family Medical History / Comment(s): DIVERTICULITS Father Family Medical History: Dementia, Diabetes Mellitus Additional Family Medical History / Comment(s): multiple myloma, parkinsons General Exam - General Exam Comments Initial Comments: right wrist: Limited range of motion of the right wrist. Tenderness noted to the ulnar aspect of the right wrist. Radial pulse 2+. No tenderness in the right hand. No ecchymosis or abrasions. Right hip: Patient has about 90 flexion of the right hip. mild Tenderness to the lateral aspect of the right hip. no significant ecchymosis. DP pulse 2+ in the right lower extremity. Right foot: Tenderness noted over the dorsal aspect of the right foot, DP pulse 2+. There is tenderness noted to the lateral right foot including the lateral malleolus. Tenderness noted inferior to the lateral malleolus. There is edema to the lateral malleolus as well. Patient has very limited dorsiflexion of the right foot, concern for tendon injury however does have about 5-10 of dorsiflexion intact. Is able to move all digits. Limitations: no limitations General appearance: alert, in no apparent distress Head exam: Present: atraumatic, normocephalic, normal inspection Eye exam: Present: normal appearance, PERRL, EOMI. Absent: scleral icterus, conjunctival injection, periorbital swelling ENT exam: Present: normal exam, mucous membranes moist Neck exam: Present: normal inspection. Absent: tenderness, meningismus, lymphadenopathy Respiratory exam: Present: normal lung sounds bilaterally. Absent: respiratory distress, wheezes, rales, rhonchi, stridor Cardiovascular Exam: Present: regular rate, normal rhythm, normal heart sounds. Absent: systolic murmur, diastolic murmur, rubs, gallop, clicks Neurological exam: Present: alert, oriented X3, CN II-XII intact Psychiatric exam: Present: normal affect, normal mood Course Vital Signs 12/28/18 14:50 Temperature 97.5 F L Pulse Rate 77 Respiratory 18 Rate Blood Pressure 138/83 O2 Sat by Pulse 99 Oximetry Procedures - Orthopedic Splinting/Casting Injury #1 Side: right Lower Extremity Injury Location: short leg Lower Extremity Immobilizer: posterior splint Other Orthopedic Equipment: crutches (She has crutches at home) Medical Decision Making - Medical Decision Making 88-year-old female presents for a chief complaint of fall. Patient had a trip and fall earlier today. No head injury. No loss of consciousness. On exam patient does have pain in the right hip however is able to flex to about 90 and is able to sit and lay down. However she is unable to bear weight on the right lower extremity due to her right foot. Patient has limited dorsiflexion of the right foot and significant tenderness over the dorsal aspect. X-ray of the ankle shows mild soft tissue swelling of the lateral malleolus. No acute fractures evident. X-ray of the right foot shows no acute fracture or dislocation. Alignment is maintained. Was reviewed with myself and Dr. Hernandez, we do not see evidence at this time of a disruption between the first and second metatarsal. X-ray of the right hip shows no acute process. X-ray of the right wrist shows a normal 4 view. No acute fractures evident. Right foot was splinted in neutral position. Patient has crutches at home, will return pain nonweightbearing. Will follow up with orthopedics. She will return here if she has any worsening symptoms. Disposition Clinical Impression: Fall, Foot pain, right Disposition: HOME SELF-CARE Condition: Good Instructions (If sedation given, give patient instructions): Foot Sprain (ED) Additional Instructions: Please take Motrin for pain. If pain is severe take Tylenol 3. Do not bear weight on the right foot and use crutches. Follow-up with orthopedics in one to 2 days for further evaluation. Return here if you have any worsening symptoms. Prescriptions: Ibuprofen [Motrin] 600 mg PO Q8HR PRN #20 tab PRN Reason: Pain Is patient prescribed a controlled substance at d/c from ED?: No Referrals: Jere Farmer MD [Primary Care Provider] - 1-2 days Inocencio Rodney MD [STAFF PHYSICIAN] - 1-2 days Zack Thomason DO [Doctor of Osteopathic Medicine] - 1-2 days Time of Disposition: 19:02
--- NOTE | 2018-12-28 16:15 | XR ---
EXAMINATION TYPE: XR wrist complete RT DATE OF EXAM: 12/28/2018 COMPARISON: None HISTORY: Pain from fall TECHNIQUE: 4 view right wrist FINDINGS: No acute fractures are evident. Scaphoid appears intact. Joint spaces are preserved. Soft t issues are normal. If there is pain at the anatomic snuff box, nuclear medicine bone scan can be performed for additiona l evaluation. Follow-up examinations of the wrist can be performed 7-10 days from acute trauma for co ntinued pain. IMPRESSION: 1. Normal 4 view right wrist
--- NOTE | 2018-12-28 16:16 | XR ---
Right wrist HISTORY: Trauma and pain 4 views of the right wrist Bone mineralization is reduced. Alignment and joint spaces are maintained. IMPRESSION: No fracture or dislocation evident.
--- NOTE | 2018-12-28 16:18 | XR ---
EXAMINATION TYPE: XR ankle complete RT DATE OF EXAM: 12/28/2018 COMPARISON: None HISTORY: Pain from fall TECHNIQUE: Three-view right ankle FINDINGS: Ankle mortise is intact. No acute fractures are evident. Mild soft tissue swelling is over the lateral malleolus. IMPRESSION: 1. Mild soft tissue swelling lateral malleolus.
--- NOTE | 2018-12-28 16:51 | XR ---
PROCEDURE: XR Hip Complete RT - 2V DATE AND TIME: 12/28/2018 4:33 PM CLINICAL INDICATION: Trauma, pain TECHNIQUE: AP and frog-leg lateral coned views COMPARISON: None FINDINGS: There is no fracture or malalignment. The soft tissues are unremarkable. IMPRESSION: NO ACUTE PROCESS.
[2018-12-28] MEDS ORDERED: ACET/COD 300 MG/30 MG STARTER PACK 6 TAB BTL PO STA (19:03)
[2018-12-28 19:17] VITALS: BP 125/69; PULSE 63; RESP 16
== END 2018-12-28 19:19 | disposition home or self-care (01) ==
LOC: EC 14:28
DX: M79.671 Pain in right foot (principal); M25.551 Pain in right hip; M25.531 Pain in right wrist; I25.10 Atherosclerotic heart disease of native coronary artery without angina pectoris; I10 Essential (primary) hypertension; I25.2 Old myocardial infarction; E03.9 Hypothyroidism, unspecified; J84.10 Pulmonary fibrosis, unspecified; Z90.710 Acquired absence of both cervix and uterus; Z95.5 Presence of coronary angioplasty implant and graft; Z98.890 Other specified postprocedural states; Z79.52 Long term (current) use of systemic steroids; Z79.83 Long term (current) use of bisphosphonates; Z79.890 Hormone replacement therapy; Z79.899 Other long term (current) drug therapy; Z88.2 Allergy status to sulfonamides; Z88.5 Allergy status to narcotic agent; W01.0XXA Fall on same level from slipping, tripping and stumbling without subsequent striking against object, initial encounter; Y92.015 Private garage of single-family (private) house as the place of occurrence of the external cause; Y93.01 Activity, walking, marching and hiking
CPT/HCPCS: 73502; 73110; 73610; 73630; 99283; 29515; 96372; J1885

== ENCOUNTER → 2019-01-31 | Outpatient (CLI) | payer MEDICARE | END | disposition home or self-care (01) | LOC: LABWHC1 10:45 | PROVIDERS: ATTEND Orthopaedic Surgery | DX: M79.641 Pain in right hand (principal); S62.346D Nondisplaced fracture of base of fifth metacarpal bone, right hand, subsequent encounter for fracture with routine healing; S60.221D Contusion of right hand, subsequent encounter; S64.01XD Injury of ulnar nerve at wrist and hand level of right arm, subsequent encounter; M79.671 Pain in right foot; S93.601D Unspecified sprain of right foot, subsequent encounter; Z79.51 Long term (current) use of inhaled steroids | CPT/HCPCS: 36415; 82306 ==

== ENCOUNTER 2019-04-11 07:59 | Observation (INO) | payer MEDICARE ==
[2019-04-11] MEDS ORDERED: ASPIRIN 81 MG PO STA (08:34)
[2019-04-11] MEDS ORDERED: NITROGLYCERIN OINT 1 INCH/GM PACKET TOPICAL STA (08:34)
[2019-04-11] MEDS ORDERED: IPRATROPIUM-ALBUTEROL 3 ML NEB INHALATION STA (08:34)
--- NOTE | 2019-04-11 08:37 | ED ---
General Adult HPI - General Chief complaint: Chest Pain Stated complaint: Palpitations Time Seen by Provider: 04/11/19 08:07 Source: patient, RN notes reviewed Mode of arrival: wheelchair Limitations: no limitations - History of Present Illness Initial comments: Patient is a pleasant 59-year-old female presenting to the emergency Department with chest discomfort. Patient has had cough over the past few months. Patient has chronic dyspnea associated with pulmonary fibrosis. This is unchanged. Patient states she recently has been having occasional palpitations. Patient states she's been having chest discomfort since yesterday. Chest discomfort is similar to previous 2 times that she needed stents. Discomfort is described as indigestion or burning or pressure. Patient states this is midsternal and does radiate towards the chest. No leg pain or leg swelling. - Related Data Home Medications Medication Instructions Recorded Confirmed Benzonatate 100 mg PO DAILY 04/12/15 04/11/19 azaTHIOprine [Imuran] 50 mg PO DAILY 04/12/15 04/11/19 Levothyroxine Sodium [Synthroid] 75 mcg PO DAILY 09/15/17 04/11/19 Losartan [Cozaar] 25 mg PO DAILY 09/15/17 04/11/19 predniSONE 2.5 mg PO DAILY 09/15/17 04/11/19 Cholecalciferol (Vitamin D3) 2,000 unit PO DAILY 04/11/19 04/11/19 [Vitamin D3] Previous Rx's Medication Instructions Recorded Atorvastatin [Lipitor] 80 mg PO HS #1 tab 04/14/15 Metoprolol Tartrate [Lopressor] 25 mg PO BID #1 tab 04/14/15 Omeprazole [PriLOSEC] 40 mg PO AC-BRKFST #14 cap 07/29/15 Aspirin EC [Ecotrin Low Dose] 81 mg PO DAILY #0 09/23/16 Nitroglycerin Sl Tabs [Nitrostat] 0.4 mg SUBLINGUAL Q5M PRN #25 tab 09/17/17 Allergies Allergy/AdvReac Type Severity Reaction Status Date / Time Sulfa (Sulfonamide Allergy Rash/Hives Verified 04/11/19 08:55 Antibiotics) morphine AdvReac Abdominal Verified 04/11/19 08:54 Pain Review of Systems ROS Statement: Those systems with pertinent positive or pertinent negative responses have been documented in the HPI. ROS Other: All systems not noted in ROS Statement are negative. Constitutional: Denies: fever Eyes: Denies: eye pain ENT: Denies: ear pain Respiratory: Reports: cough, dyspnea Cardiovascular: Reports: chest pain, palpitations Endocrine: Reports: fatigue Gastrointestinal: Denies: abdominal pain Genitourinary: Denies: dysuria Musculoskeletal: Denies: back pain Skin: Denies: rash Neurological: Denies: weakness Past Medical History Past Medical History: Coronary Artery Disease (CAD), Hyperlipidemia, Hypertension, Myocardial Infarction ([place]), Pneumonia, Thyroid Disorder Additional Past Medical History / Comment(s): Idiopathic pulmonary fibrosis, hypothyroidism, daily steroids for several yrs. Last Myocardial Infarction Date:: 04/12/15, 06/12/15 History of Any Multi-Drug Resistant Organisms: None Reported Past Surgical History: Section, Cholecystectomy, Heart Catheterization With Stent, Hysterectomy, Tonsillectomy Additional Past Surgical History / Comment(s): Open lung biopsy, heart cath. 09-22-16, x 1, colonoscopy, R breast biopsy Past Anesthesia/Blood Transfusion Reactions: No Reported Reaction Date of Last Stent Placement:: 04/12/15 Past Psychological History: No Psychological Hx Reported Smoking Status: Never smoker Past Alcohol Use History: None Reported Past Drug Use History: None Reported - Past Family History Mother Family Medical History: Coronary Artery Disease (CAD), Diabetes Mellitus, Hyperlipidemia, Myocardial Infarction ([place]), Thyroid Disorder Additional Family Medical History / Comment(s): DIVERTICULITS Father Family Medical History: Dementia, Diabetes Mellitus Additional Family Medical History / Comment(s): multiple myloma, parkinsons General Exam Limitations: no limitations General appearance: alert, in no apparent distress Head exam: Present: atraumatic Eye exam: Present: normal appearance, PERRL ENT exam: Present: normal oropharynx Neck exam: Present: normal inspection Respiratory exam: Present: rhonchi. Absent: chest wall tenderness Cardiovascular Exam: Present: regular rate, normal rhythm Expanded Peripheral pulses: 2+: Radial (R), Radial (L), Posterior Tibialis (R), Posterior Tibialis (L) GI/Abdominal exam: Present: soft. Absent: tenderness Extremities exam: Present: normal inspection. Absent: pedal edema, calf tenderness Neurological exam: Present: alert Psychiatric exam: Present: normal affect, normal mood Skin exam: Present: normal color Course Vital Signs 04/11/19 04/11/19 04/11/19 08:02 08:15 08:30 Temperature 98.6 F Pulse Rate 71 70 Respiratory 17 21 Rate Blood Pressure 129/81 140/86 140/86 O2 Sat by Pulse 97 94 L 94 L Oximetry 04/11/19 04/11/19 04/11/19 08:48 09:00 09:02 Temperature Pulse Rate 71 75 69 Respiratory 24 Rate Blood Pressure 145/89 O2 Sat by Pulse Oximetry 04/11/19 09:30 Temperature Pulse Rate 72 Respiratory 13 Rate Blood Pressure 128/83 O2 Sat by Pulse 98 Oximetry EKG Findings - EKG Comments: EKG Findings:: Normal sinus rhythm 62. [place] 144. QRS 86. QT 404. QTC 410. Normal axis. Normal QRS. No acute ST change. Medical Decision Making - Medical Decision Making Patient reevaluated and resting comfortably in bed. Patient updated on results and plan. Dr. sotomayor has been paged for admission, who has previously admitted this patient. Dr. Saleem will be consulted from pulmonary as well as cardiology. - Lab Data Result diagrams: 04/11/19 08:24 04/11/19 08:24 Lab Results 04/11/19 04/11/19 04/11/19 Range/Units 08:24 08:24 08:24 WBC 4.7 (3.8-10.6) k/uL RBC 4.27 (3.80-5.40) m/uL Hgb 13.3 (11.4-16.0) gm/dL Hct 40.2 (34.0-46.0) % MCV 93.9 (80.0-100.0) fL MCH 31.1 (25.0-35.0) pg MCHC 33.1 (31.0-37.0) g/dL RDW 14.8 (11.5-15.5) % Plt Count 280 (150-450) k/uL Neutrophils % 60 % Lymphocytes % 22 % Monocytes % 10 % Eosinophils % 5 % Basophils % 1 % Neutrophils # 2.9 (1.3-7.7) k/uL Lymphocytes # 1.0 (1.0-4.8) k/uL Monocytes # 0.5 (0-1.0) k/uL Eosinophils # 0.2 (0-0.7) k/uL Basophils # 0.1 (0-0.2) k/uL PT 10.0 (9.0-12.0) sec INR 0.9 (<1.2) APTT 22.6 (22.0-30.0) sec Sodium 140 (137-145) mmol/L Potassium 4.2 (3.5-5.1) mmol/L Chloride 104 (98-107) mmol/L Carbon Dioxide 28 (22-30) mmol/L Anion Gap 8 mmol/L BUN 12 (7-17) mg/dL Creatinine 0.87 (0.52-1.04) mg/dL Est GFR (CKD-EPI)AfAm 86 (>60 ml/min/1.73 sqM) Est GFR (CKD-EPI)NonAf 74 (>60 ml/min/1.73 sqM) Glucose 98 (74-99) mg/dL Calcium 9.4 (8.4-10.2) mg/dL Magnesium 2.0 (1.6-2.3) mg/dL Total Bilirubin 0.7 (0.2-1.3) mg/dL AST 26 (14-36) U/L ALT 26 (9-52) U/L Alkaline Phosphatase 69 (38-126) U/L Troponin I (0.000-0.034) ng/mL Total Protein 6.8 (6.3-8.2) g/dL Albumin 4.0 (3.5-5.0) g/dL 04/11/19 Range/Units 08:24 WBC (3.8-10.6) k/uL RBC (3.80-5.40) m/uL Hgb (11.4-16.0) gm/dL Hct (34.0-46.0) % MCV (80.0-100.0) fL MCH (25.0-35.0) pg MCHC (31.0-37.0) g/dL RDW (11.5-15.5) % Plt Count (150-450) k/uL Neutrophils % % Lymphocytes % % Monocytes % % Eosinophils % % Basophils % % Neutrophils # (1.3-7.7) k/uL Lymphocytes # (1.0-4.8) k/uL Monocytes # (0-1.0) k/uL Eosinophils # (0-0.7) k/uL Basophils # (0-0.2) k/uL PT (9.0-12.0) sec INR (<1.2) APTT (22.0-30.0) sec Sodium (137-145) mmol/L Potassium (3.5-5.1) mmol/L Chloride (98-107) mmol/L Carbon Dioxide (22-30) mmol/L Anion Gap mmol/L BUN (7-17) mg/dL Creatinine (0.52-1.04) mg/dL Est GFR (CKD-EPI)AfAm (>60 ml/min/1.73 sqM) Est GFR (CKD-EPI)NonAf (>60 ml/min/1.73 sqM) Glucose (74-99) mg/dL Calcium (8.4-10.2) mg/dL Magnesium (1.6-2.3) mg/dL Total Bilirubin (0.2-1.3) mg/dL AST (14-36) U/L ALT (9-52) U/L Alkaline Phosphatase (38-126) U/L Troponin I <0.012 (0.000-0.034) ng/mL Total Protein (6.3-8.2) g/dL Albumin (3.5-5.0) g/dL - Radiology Data Radiology results: image reviewed (Chest x-ray shows bibasilar opacities which could represent atelectasis or pneumonia in appropriate setting.) Disposition Clinical Impression: Chest pain, Pulmonary fibrosis Disposition: ADMITTED IP TO THIS [facility] Is patient prescribed a controlled substance at d/c from ED?: No Referrals: Rodolfo Tejeda DO [Primary Care Provider] - 1-2 days Decision Time: 09:57
[2019-04-11 09:09] LABS: Basophils # (A) 0.1 k/uL (0-0.2); Basophils % (A) 1 %; Eosinophils # (A) 0.2 k/uL (0-0.7); Eosinophils % (A) 5 %; HCT 40.2 % (34.0-46.0); HGB 13.3 gm/dL (11.4-16.0); Lymphocytes % (A) 22 %; MCH 31.1 pg (25.0-35.0); MCHC 33.1 g/dL (31.0-37.0); MCV 93.9 fL (80.0-100.0); Monocytes # (A) 0.5 k/uL (0-1.0); Monocytes % (A) 10 %; Neutrophils # (A) 2.9 k/uL (1.3-7.7); Neutrophils % (A) 60 %; Platelet Count 280 k/uL (150-450); RBC 4.27 m/uL (3.80-5.40); RDW 14.8 % (11.5-15.5); WBC 4.7 k/uL (3.8-10.6)
[2019-04-11 09:20] LABS: Calcium 9.4 mg/dL (8.4-10.2); Potassium 4.2 mmol/L (3.5-5.1); Total Bilirubin 0.7 mg/dL (0.2-1.3); Total Protein 6.8 g/dL (6.3-8.2)
[2019-04-11 09:23] LABS: INR 0.9 (<1.2); Partial Thromboplastin Time 22.6 sec (22.0-30.0)
--- NOTE | 2019-04-11 09:32 | XR ---
EXAMINATION TYPE: XR chest 2V DATE OF EXAM: 04/11/2019 COMPARISON: 03/22/2019 HISTORY: Chest pain TECHNIQUE: Frontal and lateral views of the chest are obtained. FINDINGS: There are new bibasilar opacities seen with slight obscuration of the costophrenic angles on the frontal view secondary to patient body habitus is no discrete pleural effusion is seen on the lateral view. Cardia mediastinal silhouette is limits of normal. No acute osseous pathology seen. No sizable pneumothorax or interstitial edema. Cholecystectomy clips are noted. IMPRESSION: New bibasilar opacities that may represent atelectasis or pneumonia in the appropriate c linical setting.
[2019-04-11] MEDS ORDERED: NITROGLYCERIN SL TABS 0.4 MG TAB SUBLINGUAL PRN (09:58)
[2019-04-11] MEDS: PANTOPRAZOLE 40 MG TABLET PO SCH ×2 (11:51→16:56)
[2019-04-11] MEDS: NITROGLYCERIN OINT 1 INCH/GM PACKET TOPICAL SCH ×2 (11:53→16:56)
[2019-04-11 11:59] LABS: Appearance,Urine Clear (Clear); Bilirubin,Urine Negative (Negative); Blood,Urine Negative (Negative); Color,Urine Yellow; Glucose,Urine (UA) Negative (Negative); Ketones,Urine Negative (Negative); Leukocyte Esterase,Urine Negative (Negative); Nitrite,Urine Negative (Negative); PH, Urine 6.5 (5.0-8.0); Protein,Urine Negative (Negative); Specific Gravity,Urine 1.016 (1.001-1.035); Urobilinogen,Urine <2.0 mg/dL (<2.0)
--- NOTE | 2019-04-11 12:47 | P.CRDCN ---
History of Present Illness History of present illness: This is a pleasant 59-year-old female past medical history significant for coronary artery disease status post 2 stents placed in the LAD in 2014. She also has pulmonary fibrosis, hypertension, dyslipidemia and hypothyroidism. She follows in the office with Dr. Beasley. We've been asked to see her in consultation secondary to chest discomfort. She states since January she has been struggling with upper respiratory type illness and frequent coughing. She follows with Dr. Tejeda and has been on 3 different courses of antibiotics as well as steroids. Yesterday today she started noticing burning in the midsternal region with radiation up the anterior chest at the base of her neck. She also is describing intermittent fluttering and palpitations in the chest. There is no radiation of the pain to the arm, back or jaw. This is not associated with an increase in shortness of breath, dizziness, nausea, vomiting or diaphoresis. She states she has been coughing for the previous 3 weeks and is concerned this is related to something going on with the heart as this was one of her symptoms when she had her initial myocardial infarction in 2014. The cough is dry. EKG reveals sinus mechanism with no acute ST or T wave abnormalities noted. Chest x-ray reveals new basilar opacities that may represent atelectasis or pneumonia. Laboratory data reviewed, WBC 4.7, hemoglobin 13.3, platelets 280, sodium 140, potassium 4.2, creatinine 0.87, magnesium 2.0, cardiac enzymes negative 1 and TSH 5.73. Current cardiac medications include aspirin 81 mg daily, atorvastatin 80 mg d aily, losartan 25 mg daily and Lopressor 25 mg twice a day. She underwent cardiac catheterization in 2018 revealing left main free of obstructive disease, LAD patent in the midportion with mild tender 20% stenosis noted, circumflex no obstructive disease, RCA obstructive disease and LV gram 60%. Most recent echocardiogram obtained September 2017 reveals preserved LV systolic function with ejection fraction 55-60%. At the time of my exam: CONSTITUTIONAL: Denies fever. Denies chills. EYES: Denies blurred vision. Denies vision changes. Denies eye pain. EARS, NOSE, MOUTH & THROAT: Denies headache. Denies sore throat. Denies ear pain. CARDIOVASCULAR: Complains of epigastric burning with radiation up into the base of the neck. Denies chest pain. Denies shortness of breath. Denies orthopnea. Denies PND. Denies palpitations. RESPIRATORY: Complains of cough. GASTROINTESTINAL: Denies abdominal pain. Denies diarrhea. Denies constipation. Denies nausea. Denies vomiting. MUSCULOSKELETAL: Denies myalgias. INTEGUMENTARY: Denies pruitis. Denies rash. NEUROLOGIC: Denies numbness. Denies tingling. Denies weakness. PSYCHIATRIC: Denies anxiety. Denies depression. ENDOCRINE: Denies fatigue. Denies weight change. Denies polydipsia. Denies polyurina. GENITOURINARY: Denies burning, hematuria or urgency with micturation. HEMATOLOGIC: Denies history of anemia. Denies bleeding. Blood pressure 139/83 heart rate 69 afebrile maintaining oxygen saturation on room air GENERAL: This is a 59-year-old female in no apparent distress at the time of my examination. HEENT: Head is atraumatic, normocephalic. Pupils are equal, round. Sclerae anicteric. Conjunctivae are clear. Mucous membranes of the mouth are moist. Neck is supple. There is no jugular venous distention. No carotid bruit is heard. LUNGS: Scattered rhonchi, no wheezes or rales. No chest wall tenderness is noted on palpation or with deep breathing. HEART: Regular rate and rhythm without murmurs, rubs or gallops. S1 and S2 heard. ABDOMEN: Soft, nontender. Bowel sounds are heard. No organomegaly noted. EXTREMITIES: No evidence of peripheral edema and no calf tenderness noted. VASCULAR: Radial and dorsalis pedis pulses palpated, no evidence of clubbing. NEUROLOGIC: Patient is awake, alert and oriented x3. ASSESSMENT Chest pain, atypical. Pulmonary fibrosis Coronary artery disease Hypertension Dyslipidemia PLAN Continue to obtain serial cardiac enzymes to rule out an acute event. Initiated on a small dose of Protonix, symptoms may be related to gastroesophageal reflux disease/gastritis secondary to recent steroid use. Echocardiogram has been obtained and will be reviewed. Resume aspirin, atorvastatin, losartan and Lopressor as previously prescribed. Further recommendations to follow based upon clinical course. Thank you kindly for this consultation. Nurse Practitioner note has been reviewed, I agree with a documented findings and plan of care. Patient was seen and examined. Past Medical History Past Medical History: Coronary Artery Disease (CAD), Hyperlipidemia, Hy pertension, Myocardial Infarction ([place]), Pneumonia, Thyroid Disorder Additional Past Medical History / Comment(s): Idiopathic pulmonary fibrosis, hypothyroidism, daily steroids for several yrs, recent fall with R hand fracture/tendon and muscle tear R foot and bone contusion R thigh. Last Myocardial Infarction Date:: 04/12/15, 06/12/15 History of Any Multi-Drug Resistant Organisms: None Reported Past Surgical History: Section, Cholecystectomy, Heart Catheterization, Heart Catheterization With Stent, Hysterectomy, Tonsillectomy Additional Past Surgical History / Comment(s): Open lung biopsy, heart cath. 09-22-16, x 1, colonoscopy, R breast lumpectomy/biopsy-benign Past Anesthesia/Blood Transfusion Reactions: No Reported Reaction Date of Last Stent Placement:: 04/12/15 Past Psychological History: No Psychological Hx Reported Additional Psychological History / Comment(s): Pt LIVES BY HERSELF. She is independent. She uses no assistive device. She drives. Smoking Status: Never smoker Past Alcohol Use History: None Reported Past Drug Use History: None Reported - Past Family History Mother Family Medical History: Cancer, Coronary Artery Disease (CAD), Diabetes Mellitus, Hyperlipidemia, Myocardial Infarction ([place]), Thyroid Disorder Additional Family Medical History / Comment(s): DIVERTICULITS. Mother from small cell lung cancer. Father Family Medical History: Dementia, Diabetes Mellitus Additional Family Medical History / Comment(s): multiple myloma, parkinsons Medications and Allergies Home Medications Medication Instructions Recorded Confirmed Type Benzonatate 100 mg PO DAILY 04/12/15 04/11/19 History azaTHIOprine [Imuran] 50 mg PO DAILY 04/12/15 04/11/19 History Atorvastatin [Lipitor] 80 mg PO HS #1 tab 04/14/15 04/11/19 Rx Metoprolol Tartrate [Lopressor] 25 mg PO BID #1 tab 04/14/15 04/11/19 Rx Omeprazole [PriLOSEC] 40 mg PO AC-BRKFST #14 cap 07/29/15 04/11/19 Rx Aspirin EC [Ecotrin Low Dose] 81 mg PO DAILY #0 09/23/16 04/11/19 Rx Levothyroxine Sodium [Synthroid] 75 mcg PO DAILY 09/15/17 04/11/19 History Losartan [Cozaar] 25 mg PO DAILY 09/15/17 04/11/19 History predniSONE 2.5 mg PO DAILY 09/15/17 04/11/19 History Nitroglycerin Sl Tabs [Nitrostat] 0.4 mg SUBLINGUAL Q5M PRN #25 tab 09/17/17 04/11/19 Rx Cholecalciferol (Vitamin D3) 2,000 unit PO DAILY 04/11/19 04/11/19 History [Vitamin D3] Allergies Allergy/AdvReac Type Severity Reaction Status Date / Time Sulfa (Sulfonamide Allergy Rash/Hives Verified 04/11/19 08:55 Antibiotics) morphine AdvReac Abdominal Verified 04/11/19 08:54 Pain Physical Exam Vitals: Vital Signs Temp Pulse Pulse Resp BP BP Pulse Ox 04/11/19 10:34 98.3 F 69 139/83 97 04/11/19 10:05 97.6 F 04/11/19 10:00 64 20 141/84 98 04/11/19 09:30 72 13 128/83 98 04/11/19 09:02 69 04/11/19 09:00 75 24 145/89 04/11/19 08:48 71 04/11/19 08:30 70 21 140/86 94 L 04/11/19 08:15 140/86 94 L 04/11/19 08:02 98.6 F 71 17 129/81 97 Intake and Output 04/10/19 04/11/19 04/11/19 22:59 06:59 14:59 Other: Weight 67.132 kg Results 04/11/19 08:24 04/11/19 08:24 Cardiac Enzymes 04/11/19 04/11/19 Range/Units 08:24 08:24 AST 26 (14-36) U/L Troponin I <0.012 (0.000-0.034) ng/mL Coagulation 04/11/19 Range/Units 08:24 PT 10.0 (9.0-12.0) sec APTT 22.6 (22.0-30.0) sec CBC 04/11/19 Range/Units 08:24 WBC 4.7 (3.8-10.6) k/uL RBC 4.27 (3.80-5.40) m/uL Hgb 13.3 (11.4-16.0) gm/dL Hct 40.2 (34.0-46.0) % Plt Count 280 (150-450) k/uL Comprehensive Metabolic Panel 04/11/19 Range/Units 08:24 Sodium 140 (137-145) mmol/L Potassium 4.2 (3.5-5.1) mmol/L Chloride 104 (98-107) mmol/L Carbon Dioxide 28 (22-30) mmol/L BUN 12 (7-17) mg/dL Creatinine 0.87 (0.52-1.04) mg/dL Glucose 98 (74-99) mg/dL Calcium 9.4 (8.4-10.2) mg/dL AST 26 (14-36) U/L ALT 26 (9-52) U/L Alkaline Phosphatase 69 (38-126) U/L Total Protein 6.8 (6.3-8.2) g/dL Albumin 4.0 (3.5-5.0) g/dL Current Medications Generic Name Dose Route Start Last Admin Trade Name Freq PRN Reason Stop Dose Admin Aspirin 325 mg 04/12/19 09:00 Aspirin PO DAILY POP Nitroglycerin 0.4 mg 04/11/19 09:58 Nitrostat SUBLINGUAL Q5M PRN Chest Pain Nitroglycerin 1 inch 04/11/19 12:00 Nitro-Bid Oint TOPICAL Q6HR POP Intake and Output 04/10/19 04/11/19 04/11/19 22:59 06:59 14:59 Other: Weight 67.132 kg Patient Weight 04/12/19 06:59 Weight 67.132 kg 04/11/19 08:24 04/11/19 08:24
--- NOTE | 2019-04-11 12:48 | ECHOF ---
Referral Reason: MEASUREMENTS -------- HEIGHT: 157.5 cm WEIGHT: 67.1 kg BP: 141/84 RVIDd: 2.7 cm (< 3.3) IVSd: 0.8 cm (0.6 - 1.1) LVIDd: 4.3 cm (3.9 - 5.3) LVPWd: 1.1 cm (0.6 - 1.1) IVSs: 1.4 cm LVIDs: 2.7 cm LVPWs: 1.2 cm LA Diam: 2.6 cm (2.7 - 3.8) LAESV Index (A-L): 15.66 ml/m Ao Diam: 2.5 cm (2.0 - 3.7) AV Cusp: 1.6 cm (1.5 - 2.6) LA Diam: 3.6 cm (2.7 - 3.8) MV EXCURSION: 12.148 mm (> 18.000) MV EF SLOPE: 88 mm/s (70 - 150) EPSS: 0.5 cm MV E Kevin: 0.51 m/s MV DecT: 164 ms MV A Kevin: 0.70 m/s MV E/A Ratio: 0.73 RAP: 5.00 mmHg RVSP: 18.87 mmHg FINDINGS -------- Sinus rhythm. This was a technically good study. LV size, wall thickness and systolic function are normal, with an EF greater than 55%. The left alex tricular size is normal. Overall left ventricular systolic function is normal with, an EF between 5 5 - 60 %. The right ventricle is normal in size. The left atrial size is normal. The right atrial size is normal. The aortic valve is trileaflet, and appears structurally normal. No aortic stenosis or regurgitation. Mild mitral regurgitation is present. Trace tricuspid regurgitation present. Right ventricular systolic pressure is normal at < 35 mmHg. There is no evidence of pulmonary hypertension. There is no pulmonic regurgitation present. The aortic root size is normal. There is no pericardial effusion. CONCLUSIONS -------- 1. Sinus rhythm. 2. This was a technically good study. 3. LV size, wall thickness and systolic function are normal, with an EF greater than 55%. 4. The left ventricular size is normal. 5. Overall left ventricular systolic function is normal with, an EF between 55 - 60 %. 6. The right ventricle is normal in size. 7. The left atrial size is normal. 8. The right atrial size is normal. 9. The aortic valve is trileaflet, and appears structurally normal. No aortic stenosis or regurgitati on. 10. Mild mitral regurgitation is present. 11. Trace tricuspid regurgitation present. 12. Right ventricular systolic pressure is normal at < 35 mmHg. 13. There is no evidence of pulmonary hypertension. 14. There is no pulmonic regurgitation present. 15. The aortic root size is normal. 16. There is no pericardial effusion. CHAR BELT OPERATOR: Cierra Moya RDCS
[2019-04-11 13:03] LABS: T4, Free (Free Thyroxine) 1.54 ng/dL (0.78-2.19)
[2019-04-11] MEDS ORDERED: IPRATROPIUM-ALBUTEROL 3 ML NEB INHALATION PRN (13:50)
--- NOTE | 2019-04-11 15:00 | P.CNPUL ---
History of Present Illness Consult date: 04/11/19 Requesting physician: Hector Ochoa Reason for consult: chest pain Chief complaint: Midsternal chest pain History of present illness: This is a 59-year-old white female patient with past medical history of myocardial infarction, coronary artery disease with previous stenting, nonspecific idiopathic pulmonary fibrosis she is under the care of Dr. Tejeda, hypothyroidism, lifetime nonsmoker, patient presented to the emergency department on 04/11/2019 with complaints of midsternal pressure-like chest discomfort, that would evolve into a burning sensation traveling up to her throat, she states this was similar to her previous episodes of myocardial infarction, although this time she did not have the radiation to her left hand. Also complaining of exertional dyspnea and palpitations. She did have recent episode of bronchitis that was persistent requiring a few rounds of antibiotics, Zithromax and the latest antibiotic was Levaquin, and multiple rounds of steroids. Patient still states that she coughs, her cough is dry. Lung sounds reveal typical of pulmonary fibrosis high-pitched crackles involving the posterior lower lobes. She states she did have the chills last couple nights. Recently came off the steroids related to being a bit hyperactive. Denies any hemoptysis, denies any lower extremity swelling. Chest x-ray was compared showing new bibasilar opacities that could represent atelectasis or pneumonia. She does have chronic changes at her baseline on her chest x-rays related to her history of pulmonary fibrosis. Lab work has been reviewed, and shows no evidence of leukocytosis, white blood cell, 4.7, hemoglobin at 13.3, granulation profile was within normal limits, BMP is unremarkable, troponin is negative 1, urinalysis is negative. TSH is 5.730, free T4 is 1.54. EKG shows normal sinus rhythm with no acute ischemic changes, patient states her last stress test was a year and a half ago. Echocardiogram showed an EF of 55-60%, no aortic stenosis or regurgitation, mild mitral and trace tricuspid regurgitation, no evidence of pulmonary hypertension. Review of Systems All systems: negative Constitutional: Denies chills, Denies fever Eyes: denies blurred vision, denies pain Ears, nose, mouth and throat: Denies headache, Denies sore throat Cardiovascular: Reports chest pain, Denies shortness of breath Respiratory: Denies cough Gastrointestinal: Denies abdominal pain, Denies diarrhea, Denies nausea, Denies vomiting Genitourinary: Denies dysuria, Denies hematuria Musculoskeletal: Denies myalgias Integumentary: Denies pruritus, Denies rash Neurological: Denies numbness, Denies weakness Psychiatric: Denies anxiety, Denies depression Endocrine: Denies fatigue, Denies weight change Past Medical History Past Medical History: Coronary Artery Disease (CAD), Hyperlipidemia, Hypertension, Myocardial Infarction ([place]), Pneumonia, Thyroid Disorder Additional Past Medical History / Comment(s): Idiopathic pulmonary fibrosis, hypothyroidism, daily steroids for several yrs, recent fall with R hand fracture/tendon and muscle tear R foot and bone contusion R thigh. Last Myocardial Infarction Date:: 04/12/15, 06/12/15 History of Any Multi-Drug Resistant Organisms: None Reported Past Surgical History: Section, Cholecystectomy, Heart Catheterization, Heart Catheterization With Stent, Hysterectomy, Tonsillectomy Additional Past Surgical History / Comment(s): Open lung biopsy, heart cath. 09-22-16, x 1, colonoscopy, R breast lumpectomy/biopsy-benign Past Anesthesia/Blood Transfusion Reactions: No Reported Reaction Date of Last Stent Placement:: 04/12/15 Past Psychological History: No Psychological Hx Reported Additional Psychological History / Comment(s): Pt LIVES BY HERSELF. She is independent. She uses no assistive device. She drives. Smoking Status: Never smoker Past Alcohol Use History: None Reported Past Drug Use History: None Reported - Past Family History Mother Family Medical History: Cancer, Coronary Artery Disease (CAD), Diabetes Mellitus, Hyperlipidemia, Myocardial Infarction ([place]), Thyroid Disorder Additional Family Medical History / Comment(s): DIVERTICULITS. Mother from small cell lung cancer. Father Family Medical History: Dementia, Diabetes Mellitus Additional Family Medical History / Comment(s): multiple myloma, parkinsons Medications and Allergies Home Medications Medication Instructions Recorded Confirmed Type Benzonatate 100 mg PO DAILY 04/12/15 04/11/19 History azaTHIOprine [Imuran] 50 mg PO DAILY 04/12/15 04/11/19 History Atorvastatin [Lipitor] 80 mg PO HS #1 tab 04/14/15 04/11/19 Rx Metoprolol Tartrate [Lopressor] 25 mg PO BID #1 tab 04/14/15 04/11/19 Rx Omeprazole [PriLOSEC] 40 mg PO AC-BRKFST #14 cap 07/29/15 04/11/19 Rx Aspirin EC [Ecotrin Low Dose] 81 mg PO DAILY #0 09/23/16 04/11/19 Rx Levothyroxine Sodium [Synthroid] 75 mcg PO DAILY 09/15/17 04/11/19 History Losartan [Cozaar] 25 mg PO DAILY 09/15/17 04/11/19 History predniSONE 2.5 mg PO DAILY 09/15/17 04/11/19 History Nitroglycerin Sl Tabs [Nitrostat] 0.4 mg SUBLINGUAL Q5M PRN #25 tab 09/17/17 04/11/19 Rx Cholecalciferol (Vitamin D3) 2,000 unit PO DAILY 04/11/19 04/11/19 History [Vitamin D3] Allergies Allergy/AdvReac Type Severity Reaction Status Date / Time Sulfa (Sulfonamide Allergy Rash/Hives Verified 04/11/19 08:55 Antibiotics) morphine AdvReac Abdominal Verified 04/11/19 08:54 Pain Physical Exam Vitals: Vital Signs Temp Pulse Pulse Resp BP BP Pulse Ox 04/11/19 10:34 98.3 F 69 139/83 97 04/11/19 10:05 97.6 F 04/11/19 10:00 64 20 141/84 98 04/11/19 09:30 72 13 128/83 98 04/11/19 09:02 69 04/11/19 09:00 75 24 145/89 04/11/19 08:48 71 04/11/19 08:30 70 21 140/86 94 L 04/11/19 08:15 140/86 94 L 04/11/19 08:02 98.6 F 71 17 129/81 97 Intake and Output 04/10/19 04/11/19 04/11/19 22:59 06:59 14:59 Other: Voiding Method Toilet # Voids 1 Weight 67.132 kg GENERAL EXAM: Alert, pleasant, slightly anxious 59-year-old white female, comfortable in no apparent distress. HEAD: Normocephalic/atraumatic. EYES: Normal reaction of pupils, equal size. Conjunctiva pink, sclera white. NOSE: Clear with pink turbinates. THROAT: No erythema or exudates. NECK: No masses, no JVD, no thyroid enlargement, no adenopathy. CHEST: No chest wall deformity. Symmetrical expansion. LUNGS: Equal air entry with loud Velcro-like crackles over posterior lower bases, but no wheeze, rhonchi or dullness. CVS: Regular rate and rhythm, normal S1 and S2, no gallops, no murmurs, no rubs ABDOMEN: Soft, nontender. No hepatosplenomegaly, normal bowel sounds, no guarding or rigidity. EXTREMITIES: No clubbing, no edema, no cyanosis, 2+ pulses and upper and lower extremities. MUSCULOSKELETAL: Muscle strength and tone normal. SPINE: No scoliosis or deformity SKIN: No rashes CENTRAL NERVOUS SYSTEM: Alert and oriented -3. No focal deficits, tone is normal in all 4 extremities. PSYCHIATRIC: Alert and oriented -3. Appropriate affect. Intact judgment and insight. Results - Laboratory Findings CBC and BMP: 04/11/19 08:24 04/11/19 08:24 PT/INR, D-dimer PT 10.0 sec (9.0-12.0) 04/11/19 08:24 INR 0.9 (<1.2) 04/11/19 08:24 Abnormal lab findings: Abnormal Labs 04/11/19 08:24 TSH 5.730 H - Diagnostic Findings Chest x-ray: report reviewed, image reviewed Additional studies: EKG reviewed echocardiogram reviewed Assessment and Plan Plan: Assessment: #1. Chest pain, rule out acute coronary syndrome #2. Bibasilar opacities, possibility of pneumonia is unlikely but not completely excluded #3. Recent history of bronchitis, requiring treatment with a few rounds of antibiotics #4. Persistent cough #5. History of nonspecific idiopathic pulmonary fibrosis #6. Lifetime nonsmoker #7. Previous history of myocardial infarctions #8. Family history of heart disease #9. Coronary artery disease with previous stenting #10. Hypothyroidism Plan: Patient's chest x-ray has been reviewed, showing some bibasilar opacities, possibility of pneumonia is not likely but not completely excluded, we'll start the patient on empiric Augmentin, send a procalcitonin, check influenza, her cough is dry, she is afebrile, no leukocytosis breathing treatments as needed, patient is requesting not to give her albuterol which makes her palpitations worse. Not significantly congested, no hemoptysis, no chest wall tenderness. Case discussed with Dr. Erazo, and patient's symptoms of pain are quite concerning for cardiac etiology. Patient will be nothing by mouth after midnight for possibility of cardiac catheterization tomorrow. Serial troponins have been ordered. We'll follow I performed a history & physical examination of the patient and discussed their management with my nurse practitioner, Yeimy Rodriguez. I reviewed the nurse practitioner's note and agree with the documented findings and plan of care. Lung sounds are positive for coarse Velcro-like crackles. The findings and the impression was discussed with the patient. I attest to the documentation by the nurse practitioner. Time with Patient: Greater than 30
[2019-04-11] MEDS: AMOXIC-POT CLAV 875-125MG 1 EACH TAB PO SCH ×2 (15:48→22:05)
[2019-04-11] MEDS: METOPROLOL TARTRATE 25 MG TAB PO SCH (20:45)
[2019-04-11] MEDS ORDERED: ATORVASTATIN 80 MG TAB PO SCH (21:00)
--- NOTE | 2019-04-11 22:06 | P.HPIM ---
History of Present Illness H&P Date: 04/11/19 Chief Complaint: Fluttering the chest History of presenting complaint: This is a very pleasant 59-year-old patient who follows with Dr. Saleem. Chronic stable medical conditions include idiopathic pulmonary fibrosis, hypertension, hyperlipidemia, hypothyroid. Patient back in 2014 had a stent placed. And in 2017 patient had another cardiac catheterization that did not show any stenosis. Patient be getting treated by Dr. Saleem with steroids intermittently for a bit fibrosis. Patient presents with an episode of heart central chest pressure and fluttering in the chest lasting off and on for some time for 1 day. Patient has a dry chronic cough. 2 days ago she noticed some chills. No sputum production. No obvious fever. Admitted for the same. [facility] pulmonary were both consulted. No precordial pain. Pain was localized to the anterior chest wall with no radiation. Review of systems: GEN.: Tired EYES: None HEENT: None NECK: None RESPIRATORY: As above CARDIOVASCULAR: As above plus and fluttering of the chest GASTROINTESTINAL: None GENITOURINARY: None MUSCULOSKELETAL: None LYMPHATICS: None HEMATOLOGICAL: None PSYCHIATRY: None NEUROLOGICAL: None Past medical history: Coronary artery disease with stent in 2014 with a negative cardiac cath in 2017, idiopathic pulmonary fibrosis, hypertension, hyperlipidemia, hypothyroid. Social history: Does not smoke or drink alcohol. Lives alone. On disability Family history: Noted in the electronic records from this admission Physical examination: VITAL SIGNS: 98.6, 71, 17, 129/81, 97% room air GENERAL: 27.1, sitting up, comfortable. EYES: Pupils equal. Conjunctiva normal. HEENT: External appearance of nose and ears normal, oral cavity grossly normal. NECK: JVD not raised; masses not palpable. HEART: First and second heart sounds are normal; no edema. LUNGS: Respiratory rate normal; fine basal crackles. ABDOMEN: Soft, nontender, liver spleen not palpable, no masses palpable. PSYCH: Alert and oriented x3; mood and affect slightly anxiousl. NEUROLOGICAL: Cranial nerves grossly intact; no facial asymmetry, power and sensation grossly intact. LYMPHATICS: No lymph nodes palpable in the axilla and neck INVESTIGATIONS, reviewed in the clinical context: EKG tracing personally reviewed by me-normal sinus rhythm Chest x-ray film personally reviewed by me-some infiltrates in the right lower, Cannot Say If It's Chronic 2-D echo shows preserved early function with no wall motion abnormality Assessment: -Anterior chest pressure with some fluttering sensation, appears to be short- lived arrhythmia with associates symptoms. Patient's troponins are negative EKG is normal. Cardiology was consulted. -Chronic idiopathic pulmonary fibrosis -Doubt pneumonia as patient has no sputum production has no congestion, no fever no white count -Essential hypertension -Hyperlipidemia -Hypothyroid -Coronary artery disease with stent in 2014 Plan: Both cardiology and pulmonary were consulted. Doubt this to be acute coronary syndrome. Home medications resumed. Discussed with the patient. He is a patient on telemetry. Follow with cardiology Past Medical History Past Medical History: Coronary Artery Disease (CAD), Hyperlipidemia, Hypertens ion, Myocardial Infarction (MT), Pneumonia, Thyroid Disorder Additional Past Medical History / Comment(s): Idiopathic pulmonary fibrosis, hypothyroidism, daily steroids for several yrs, recent fall with R hand fracture/tendon and muscle tear R foot and bone contusion R thigh. Last Myocardial Infarction Date:: 04/12/15, 06/12/15 History of Any Multi-Drug Resistant Organisms: None Reported Past Surgical History: Section, Cholecystectomy, Heart Catheterization, Heart Catheterization With Stent, Hysterectomy, Tonsillectomy Additional Past Surgical History / Comment(s): Open lung biopsy, heart cath. 09-22-16, x 1, colonoscopy, R breast lumpectomy/biopsy-benign Past Anesthesia/Blood Transfusion Reactions: No Reported Reaction Date of Last Stent Placement:: 04/12/15 Past Psychological History: No Psychological Hx Reported Additional Psychological History / Comment(s): Pt LIVES BY HERSELF. She is independent. She uses no assistive device. She drives. Smoking Status: Never smoker Past Alcohol Use History: None Reported Past Drug Use History: None Reported - Past Family History Mother Family Medical History: Cancer, Coronary Artery Disease (CAD), Diabetes Mellitus, Hyperlipidemia, Myocardial Infarction (MT), Thyroid Disorder Additional Family Medical History / Comment(s): DIVERTICULITS. Mother from small cell lung cancer. Father Family Medical History: Dementia, Diabetes Mellitus Additional Family Medical History / Comment(s): multiple myloma, parkinsons Medications and Allergies Home Medications Medication Instructions Recorded Confirmed Type Benzonatate 100 mg PO DAILY 04/12/15 04/11/19 History azaTHIOprine [Imuran] 50 mg PO DAILY 04/12/15 04/11/19 History Atorvastatin [Lipitor] 80 mg PO HS #1 tab 04/14/15 04/11/19 Rx Metoprolol Tartrate [Lopressor] 25 mg PO BID #1 tab 04/14/15 04/11/19 Rx Omeprazole [PriLOSEC] 40 mg PO AC-BRKFST #14 cap 07/29/15 04/11/19 Rx Aspirin EC [Ecotrin Low Dose] 81 mg PO DAILY #0 09/23/16 04/11/19 Rx Levothyroxine Sodium [Synthroid] 75 mcg PO DAILY 09/15/17 04/11/19 History Losartan [Cozaar] 25 mg PO DAILY 09/15/17 04/11/19 History predniSONE 2.5 mg PO DAILY 09/15/17 04/11/19 History Nitroglycerin Sl Tabs [Nitrostat] 0.4 mg SUBLINGUAL Q5M PRN #25 tab 09/17/17 04/11/19 Rx Cholecalciferol (Vitamin D3) 2,000 unit PO DAILY 04/11/19 04/11/19 History [Vitamin D3] Allergies Allergy/AdvReac Type Severity Reaction Status Date / Time Sulfa (Sulfonamide Allergy Rash/Hives Verified 04/11/19 08:55 Antibiotics) morphine AdvReac Abdominal Verified 04/11/19 08:54 Pain Physical Exam Vitals: Vital Signs Temp Pulse Pulse Resp BP BP BP 04/11/19 20:00 98.5 F 75 18 108/68 04/11/19 15:43 97.7 F 73 133/83 04/11/19 10:34 98.3 F 69 139/83 04/11/19 10:05 97.6 F 04/11/19 10:00 64 20 141/84 04/11/19 09:30 72 13 128/83 04/11/19 09:02 69 04/11/19 09:00 75 24 145/89 04/11/19 08:48 71 04/11/19 08:30 70 21 140/86 04/11/19 08:15 140/86 04/11/19 08:02 98.6 F 71 17 129/81 Pulse Ox 04/11/19 20:00 95 04/11/19 15:43 94 L 04/11/19 10:34 97 04/11/19 10:05 04/11/19 10:00 98 04/11/19 09:30 98 04/11/19 09:02 04/11/19 09:00 04/11/19 08:48 04/11/19 08:30 94 L 04/11/19 08:15 94 L 04/11/19 08:02 97 Intake and Output 04/11/19 04/11/19 04/11/19 06:59 14:59 22:59 Other: Voiding Method Toilet Toilet # Voids 1 Weight 67.132 kg Results CBC & Chem 7: 04/11/19 08:24 04/11/19 08:24 Labs: Abnormal Lab Results - Last 24 Hours (Table) 04/11/19 Range/Units 08:24 TSH 5.730 H (0.465-4.680) mIU/L Thrombosis Risk Factor Assmnt - Choose All That Apply Any of the Below Risk Factors Present?: Yes Each Factor Represents 1 point: Age 41-60 years, Obesity (BMI >25), Serious lung disease incl. pneumonia (< 1month) Other Risk Factors: No Other congenital or acquired thrombophilia - If yes, enter type in comment: No Thrombosis Risk Factor Assessment Total Risk Factor Score: 3 Thrombosis Risk Factor Assessment Level: Moderate Risk
[2019-04-12] MEDS: NITROGLYCERIN OINT 1 INCH/GM PACKET TOPICAL SCH ×2 (00:12→03:39)
[2019-04-12 03:35] LABS: Cholesterol 156 mg/dL (<200); HDL Cholesterol 61 mg/dL (40-60); LDL Cholesterol,Calculated 77 mg/dL (0-99); Triglycerides 90 mg/dL (<150)
[2019-04-12] MEDS ORDERED: DOBUTamine DRIP for NUC MED 500 MG in DEXTROSE/WATER 1 250ML.BAG IV ONE (07:27)
--- NOTE | 2019-04-12 07:27 | P.PN ---
Subjective Progress Note Date: 04/12/19 Principal diagnosis: Atypical chest pain This is a pleasant 59-year-old female patient with a past medical history significant for CAD and prior stenting, hypertension, and dyslipidemia, was admitted to the hospital with atypical chest discomfort as well as intermittent episodes of palpitation. She was ruled out for acute coronary event. The EKG did not show any ischemic ST or T-wave abnormalities and the cardiac enzymes came in to be unremarkable. On follow-up with her today, she stated that she has been feeling better. She has been chest pain-free. She continues to have intermittent episodes of palpitation but the telemetry did not show any arrhythmia. I did advise the patient to get up and around. I am going to obtain a stress test to rule out severe underlying coronary artery disease and follow-up with the patient. Objective - Vital Signs Vital signs: Vital Signs Temp 98.1 F 04/12/19 05:18 Pulse 71 04/12/19 05:18 Resp 18 04/12/19 05:18 BP 123/78 04/12/19 05:18 Pulse Ox 96 04/12/19 05:18 Intake & Output 04/11/19 04/12/19 04/12/19 18:59 06:59 18:59 Intake Total 222 Balance 222 Weight 67.132 kg Intake: Oral 222 Other: Voiding Method Toilet Toilet # Voids 1 - Constitutional General appearance: Present: no acute distress - Respiratory Respiratory: bilateral: CTA - Cardiovascular Rhythm: regular Heart sounds: normal: S1, S2 - Labs CBC & Chem 7: 04/11/19 08:24 04/11/19 08:24 Labs: Abnormal Lab Results - Last 24 Hours (Table) 04/11/19 04/11/19 Range/Units 08:05 08:24 HDL Cholesterol 61 H (40-60) mg/dL TSH 5.730 H (0.465-4.680) mIU/L Assessment and Plan Assessment: Assessment #1 atypical chest discomfort #2 coronary artery disease #3 hypertension #4 dyslipidemia #5 pulmonary fibrosis Plan #1 acute coronary event was ruled out #2 I did advise proceeding with a stress test #3 further recommendation to follow that Thank you for allowing us participate in her care
[2019-04-12 07:34] VITALS: RESP 16
[2019-04-12] MEDS: PANTOPRAZOLE 40 MG TABLET PO SCH (07:43)
[2019-04-12] MEDS: AMOXIC-POT CLAV 875-125MG 1 EACH TAB PO SCH (07:44)
[2019-04-12] MEDS ORDERED: LOSARTAN 25 MG TAB PO SCH (09:00)
[2019-04-12] MEDS ORDERED: ASPIRIN 81 MG PO SCH (09:00)
[2019-04-12] MEDS ORDERED: ASPIRIN 325 MG TAB PO SCH (09:00)
[2019-04-12] MEDS ORDERED: guaiFENesin-Coden 100-10MG/5ML 10 ML CUP PO SCH (11:30)
[2019-04-12 12:19] VITALS: BP 116/67; TEMP 98.3
[2019-04-12] MEDS ORDERED: IPRATROPIUM-ALBUTEROL 3 ML NEB INHALATION SCH (13:00)
[2019-04-12] MEDS: METOPROLOL TARTRATE 25 MG TAB PO SCH (13:22)
[2019-04-12 13:39] VITALS: PULSE 84
--- NOTE | 2019-04-12 16:27 | P.PN ---
Subjective Progress Note Date: 04/12/19 Principal diagnosis: Chest pain, coughing This is a 59-year-old white female patient with past medical history of myocardial infarction, coronary artery disease with previous stenting, nonspecific idiopathic pulmonary fibrosis she is under the care of Dr. Tejeda, hypothyroidism, lifetime nonsmoker, patient presented to the emergency department on 04/11/2019 with complaints of midsternal pressure-like chest discomfort, that would evolve into a burning sensation traveling up to her throat, she states this was similar to her previous episodes of myocardial infarction, although this time she did not have the radiation to her left hand. Also complaining of exertional dyspnea and palpitations. She did have recent episode of bronchitis that was persistent requiring a few rounds of antibiotics, Zithromax and the latest antibiotic was Levaquin, and multiple rounds of steroids. Patient still states that she coughs, her cough is dry. Lung sounds reveal typical of pulmonary fibrosis high-pitched crackles involving the posterior lower lobes. She states she did have the chills last couple nights. Recently came off the steroids related to being a bit hyperactive. Denies any hemoptysis, denies any lower extremity swelling. Chest x-ray was compared showing new bibasilar opacities that could represent atelectasis or pneumonia. She does have chronic changes at her baseline on her chest x-rays related to her history of pulmonary fibrosis. Lab work has been reviewed, and shows no evidence of leukocytosis, white blood cell, 4.7, hemoglobin at 13.3, granulation profile was within normal limits, BMP is unremarkable, troponin is negative 1, urinalysis is negative. TSH is 5.730, free T4 is 1.54. EKG shows normal sinus rhythm with no acute ischemic changes, patient states her last stress test was a year and a half ago. Echocardiogram showed an EF of 55-60%, no aortic stenosis or regurgitation, mild mitral and trace tricuspid regurgitation, no evidence of pulmonary hypertension. On 04/12/2019 patient seen in follow-up on observation unit. She states she is not having much chest pain, however she has persistent coughing, dry irritative cough. Patient has been afebrile, room air pulse ox is 96%, hemodynamically stable, no arrhythmias noted on the monitor. Patient is going for a stress test this afternoon which was reportedly negative, patient has been cleared for discharge by cardiology, from pulmonary perspective patient is stable, she has been started on empiric antibiotics in the form of Augmentin, however her pro- calcitonin level came back low at 0.02, making possibility of acute infection unlikely. Patient has been started on Medrol Dosepak however she is reluctant to take another round of steroids. We'll start some cough syrup with codeine however she states that has not helped her much either in the recent past. Influenza was not detected, urinalysis was negative. Objective - Vital Signs Vital signs: Vital Signs Temp 98.3 F 04/12/19 12:17 Pulse 84 04/12/19 13:31 Resp 16 04/12/19 12:17 BP 116/67 04/12/19 12:17 Pulse Ox 96 04/12/19 12:17 Intake & Output 04/11/19 04/12/19 04/12/19 18:59 06:59 18:59 Intake Total 222 Balance 222 Weight 67.132 kg 82.5 kg Intake: Oral 222 Other: Voiding Method Toilet Toilet Toilet # Voids 1 1 - Exam GENERAL EXAM: Alert, pleasant, slightly anxious 59-year-old white female, comfortable in no apparent distress. HEAD: Normocephalic/atraumatic. EYES: Normal reaction of pupils, equal size. Conjunctiva pink, sclera white. NOSE: Clear with pink turbinates. THROAT: No erythema or exudates. NECK: No masses, no JVD, no thyroid enlargement, no adenopathy. CHEST: No chest wall deformity. Symmetrical expansion. LUNGS: Equal air entry with loud Velcro-like crackles over posterior lower bases, but no wheeze, rhonchi or dullness. CVS: Regular rate and rhythm, normal S1 and S2, no gallops, no murmurs, no rubs ABDOMEN: Soft, nontender. No hepatosplenomegaly, normal bowel sounds, no guarding or rigidity. EXTREMITIES: No clubbing, no edema, no cyanosis, 2+ pulses and upper and lower extremities. MUSCULOSKELETAL: Muscle strength and tone normal. SPINE: No scoliosis or deformity SKIN: No rashes CENTRAL NERVOUS SYSTEM: Alert and oriented -3. No focal deficits, tone is normal in all 4 extremities. PSYCHIATRIC: Alert and oriented -3. Appropriate affect. Intact judgment and insight. - Labs CBC & Chem 7: 04/11/19 08:24 04/11/19 08:24 Labs: Abnormal Lab Results - Last 24 Hours (Table) 04/11/19 Range/Units 08:05 HDL Cholesterol 61 H (40-60) mg/dL Assessment and Plan Plan: Assessment: #1. Chest pain, rule out acute coronary syndrome #2. Persistent tracheobronchitis #3. Bibasilar opacities, possibility of pneumonia is unlikely, pro-calcitonin level is low at 0.02 #4. Recent history of bronchitis, requiring treatment with a few rounds of antibiotics #5. Persistent cough #6. History of nonspecific idiopathic pulmonary fibrosis #7. Lifetime nonsmoker #8. Previous history of myocardial infarctions #9. Family history of heart disease #10. Coronary artery disease with previous stenting #11. Hypothyroidism Plan: We added Medrol Dosepak, patient can finish outpatient course of oral Augmentin for diagnoses of tracheobronchitis, pro-calcitonin level came back low sugg esting absence of active infection. Patient is reluctant to take another round of steroids however she continues is to complain of persistent cough. She has been cleared for discharge by cardiology. From pulmonary perspective she is stable for discharge as well, with outpatient follow-up with Dr. Tejeda in the office in 7-[address] Minda Pickard for possibility of outpatient bronchoscopy in regards to persistent tracheobronchitis and persistent cough. I performed a history & physical examination of the patient and discussed their management with my nurse practitioner, Yeimy Rodriguez. I reviewed the nurse practitioner's note and agree with the documented findings and plan of care. Lung sounds are positive for coarse Velcro-like crackles. The findings and the impression was discussed with the patient. I attest to the documentation by the nurse practitioner. Time with Patient: Less than 30
--- NOTE | 2019-04-12 22:22 | P.DS ---
Providers Date of admission: 04/11/19 09:58 Expected date of discharge: 04/12/19 Attending physician: Robinson Matson Consults: 04/11/19 09:58 Consult Physician Urgent Consulting Provider: Rodolfo Tejeda Consult Reason/Comments: Pulmonary fibrosis Do you want consulting provider notified?: Yes Consult Physician Urgent Consulting Provider: Marie Singh Consult Reason/Comments: cp Do you want consulting provider notified?: Yes Primary care physician: Rodolfo Tejeda [facility] Course: Chief Complaint: Fluttering the chest History of presenting complaint: This is a very pleasant 59-year-old patient who follows with Dr. Saleem. Chronic stable medical conditions include idiopathic pulmonary fibrosis, hypertension, hyperlipidemia, hypothyroid. Patient back in 2014 had a stent placed. And in 2017 patient had another cardiac catheterization that did not show any stenosis. Patient be getting treated by Dr. Saleem with steroids intermittently for pulmonary fibrosis. Patient presents with an episode of central chest pressure and fluttering in the chest lasting off and on for some time for 1 day. Patient has a dry chronic cough. 2 days ago she noticed some chills. No sputum production. No obvious fever. Admitted for the same.. No precordial pain. Pain was localized to the anterior chest wall with no radiation. Patient undergo stress test. That was reported to be negative. Pulmonary did give patient a short course of antibiotic and steroids. Care was discussed with the patient. Consultation: Dr. Alcazar from pulmonary Dr. Erazo from cardiology Physical examination: VITAL SIGNS: 98.3, 86, 16, 116/67, 96% room air GENERAL: 27.1, sitting up, comfortable. EYES: Pupils equal. Conjunctiva normal. HEENT: External appearance of nose and ears normal, oral cavity grossly normal. NECK: JVD not raised; masses not palpable. HEART: First and second heart sounds are normal; no edema. LUNGS: Respiratory rate normal; fine basal crackles. ABDOMEN: Soft, nontender, liver spleen not palpable, no masses palpable. PSYCH: Alert and oriented x3; mood and affect slightly anxiousl. NEUROLOGICAL: Cranial nerves grossly intact; no facial asymmetry, power and sensation grossly intact. LYMPHATICS: No lymph nodes palpable in the axilla and neck INVESTIGATIONS, reviewed in the clinical context: EKG tracing personally reviewed by me-normal sinus rhythm Chest x-ray film personally reviewed by me-some infiltrates in the right lower, Cannot Say If It's Chronic 2-D echo shows preserved LV function with no wall motion abnormality. EF 55-60% Discharge diagnosis: -Anterior chest pressure with some fluttering sensation, appears to be short- lived arrhythmia with associates symptoms. Patient's troponins are negative EKG is normal. -Chronic idiopathic pulmonary fibrosis -Doubt pneumonia as patient has no sputum production has no congestion, no fever no white count -Essential hypertension -Hyperlipidemia -Hypothyroid -Coronary artery disease with stent in 2014 Disposition: Home Patient Condition at Discharge: Stable Plan - Discharge Summary Discharge Rx Participant: No New Discharge Prescriptions: New Amoxic-Pot Clav 875-125Mg [Augmentin 875-125] 1 each PO Q12HR #6 tab Continue azaTHIOprine [Imuran] 50 mg PO DAILY Benzonatate 100 mg PO DAILY Atorvastatin [Lipitor] 80 mg PO HS #1 tab Metoprolol Tartrate [Lopressor] 25 mg PO BID #1 tab Omeprazole [PriLOSEC] 40 mg PO AC-BRKFST #14 cap Aspirin EC [Ecotrin Low Dose] 81 mg PO DAILY #0 predniSONE 2.5 mg PO DAILY Losartan [Cozaar] 25 mg PO DAILY Levothyroxine Sodium [Synthroid] 75 mcg PO DAILY Nitroglycerin Sl Tabs [Nitrostat] 0.4 mg SUBLINGUAL Q5M PRN #25 tab PRN Reason: Chest Pain Cholecalciferol (Vitamin D3) [Vitamin D3] 2,000 unit PO DAILY Discharge Medication List Benzonatate 100 mg PO DAILY 04/12/15 [History] azaTHIOprine [Imuran] 50 mg PO DAILY 04/12/15 [History] Atorvastatin [Lipitor] 80 mg PO HS #1 tab 04/14/15 [Rx] Metoprolol Tartrate [Lopressor] 25 mg PO BID #1 tab 04/14/15 [Rx] Omeprazole [PriLOSEC] 40 mg PO AC-BRKFST #14 cap 07/29/15 [Rx] Aspirin EC [Ecotrin Low Dose] 81 mg PO DAILY #0 09/23/16 [Rx] Levothyroxine Sodium [Synthroid] 75 mcg PO DAILY 09/15/17 [History] Losartan [Cozaar] 25 mg PO DAILY 09/15/17 [History] predniSONE 2.5 mg PO DAILY 09/15/17 [History] Nitroglycerin Sl Tabs [Nitrostat] 0.4 mg SUBLINGUAL Q5M PRN #25 tab 09/17/17 [Rx] Cholecalciferol (Vitamin D3) [Vitamin D3] 2,000 unit PO DAILY 04/11/19 [History] Amoxic-Pot Clav 875-125Mg [Augmentin 875-125] 1 each PO Q12HR #6 tab 04/12/19 [Rx] Follow up Appointment(s)/Referral(s): Nehemias Beasley MD [STAFF PHYSICIAN] - 05/02/19 3:00 pm Rodolfo Tejeda DO [Primary Care Provider] - 04/27/19 3:00 pm (With Minda Pickard NP ) Patient Instructions/Handouts: Chest Pain (DC) Activity/Diet/Wound Care/Special Instructions: dc if ok with pulmonary Discharge Disposition: HOME SELF-CARE
[2019-04-13] MEDS ORDERED: methylPREDNISolone 4 MG TAB TAPER PO SCH (09:00)
--- NOTE | 2019-04-13 09:44 | ECHOS ---
STRESS ECHOCARDIOGRAM DATE OF SERVICE: 04/12/2019 INDICATIONS: Chest pain. MEDICATIONS: BASELINE HEART RATE: 93 BASELINE BLOOD PRESSURE: 107/75 MAXIMUM HEART RATE: 140 MAXIMUM BLOOD PRESSURE: 127/62 85% MPHR: 139 100% MPHR: 163 METS: MAXIMUM STAGE REACHED: TOTAL EXERCISE TIME: CLINICAL INFORMATION: STRESS DATA: Heart rate 93, pressure is 107/75 mmHg. Baseline EKG showed sinus mechanism. Dobutamine infusion at a dose of 10 mcg/kg per minute was initiated and increased to 40 mcg/kg per minute. Max heart rate was 140 which is about 86% of maximum predicted heart rate. Maximum blood pressure was 127/62 mmHg. Clinically the patient did not have any symptoms and the EKG did not show any significant ST or T-wave abnormalities concerning for ischemia. ECHOCARDIOGRAM IMAGES: On echocardiogram images from parasternal long axis view, parasternal short axis view, apical 4 chamber and apical 2 chamber view were obtained as the baseline images, at low dose dobutamine infusion, at peak heart rate as well as on recovery. The echocardiogram images showed good augmentation in the left ventricular systolic function without any evidence of wall motion abnormalities concerning for ischemia. CONCLUSION: 1. Normal EKG in response to dobutamine. 2. Normal echocardiogram in response to dobutamine. MMODL / IJN: [id number] /
== END 2019-04-12 15:40 | disposition home or self-care (01) ==
LOC: EC 07:59 → 1SOBS 09:58
PROVIDERS: ADMIT Hospitalist; ATTEND Hospitalist
DX: R07.89 Other chest pain (principal); I49.8 Other specified cardiac arrhythmias; J84.112 Idiopathic pulmonary fibrosis; I10 Essential (primary) hypertension; E78.5 Hyperlipidemia, unspecified; E03.9 Hypothyroidism, unspecified; I25.10 Atherosclerotic heart disease of native coronary artery without angina pectoris; Z95.5 Presence of coronary angioplasty implant and graft; R68.83 Chills (without fever); R00.2 Palpitations; J40 Bronchitis, not specified as acute or chronic; K30 Functional dyspepsia; I25.2 Old myocardial infarction; E66.9 Obesity, unspecified; Z68.33 Body mass index [BMI] 33.0-33.9, adult; Z87.01 Personal history of pneumonia (recurrent); Z79.52 Long term (current) use of systemic steroids; Z79.890 Hormone replacement therapy; Z79.82 Long term (current) use of aspirin; Z90.49 Acquired absence of other specified parts of digestive tract; Z91.81 History of falling; Z79.899 Other long term (current) drug therapy; Z88.5 Allergy status to narcotic agent; Z88.2 Allergy status to sulfonamides; Z82.49 Family history of ischemic heart disease and other diseases of the circulatory system; Z80.1 Family history of malignant neoplasm of trachea, bronchus and lung; Z83.3 Family history of diabetes mellitus; Z82.0 Family history of epilepsy and other diseases of the nervous system; Z81.8 Family history of other mental and behavioral disorders; Z83.49 Family history of other endocrine, nutritional and metabolic diseases; Z83.79 Family history of other diseases of the digestive system
CPT/HCPCS: 99285; 36415; 94640 ×3; 93005; 93306; 93351; 84439; 80061; 80053; 84443; 83735; 84484; 85025; 85610; 85730; 81003; 87502; 84145; 71046; G0378 ×2; J1250

== ENCOUNTER 2019-04-16 12:27 | Observation (INO) | payer MEDICARE ==
[2019-04-16] MEDS ORDERED: ASPIRIN 81 MG PO STA (12:40)
[2019-04-16] MEDS ORDERED: NITROGLYCERIN OINT 1 INCH/GM PACKET TOPICAL STA (12:40)
--- NOTE | 2019-04-16 12:44 | ED ---
General Adult HPI - General Chief complaint: Chest Pain Stated complaint: Chest discomfort Time Seen by Provider: 04/16/19 12:31 Source: patient, RN notes reviewed Mode of arrival: wheelchair Limitations: no limitations - History of Present Illness Initial comments: Patient is a pleasant 59-year-old female presenting to the emergency department with concerns regarding chest discomfort. Symptoms have been occurring for the past 4-5 days. Patient has pressure in her sternal region with radiation up to the neck. Patient has associated dyspnea, nausea, and sweating. Patient also has palpitations. Patient does have history of similar symptoms previously associated with stent placement. Patient was in the hospital several days ago and had stress test that was reported as normal to her. - Related Data Home Medications Medication Instructions Recorded Confirmed Benzonatate 100 mg PO DAILY 04/12/15 04/16/19 azaTHIOprine [Imuran] 50 mg PO DAILY 04/12/15 04/16/19 Levothyroxine Sodium [Synthroid] 75 mcg PO DAILY 09/15/17 04/16/19 Losartan [Cozaar] 25 mg PO DAILY 09/15/17 04/16/19 predniSONE 2.5 mg PO DAILY 09/15/17 04/16/19 Cholecalciferol (Vitamin D3) 2,000 unit PO DAILY 04/11/19 04/16/19 [Vitamin D3] Amoxic-Pot Clav 875-125Mg 1 tab PO Q12HR 04/16/19 04/16/19 [Augmentin 875-125] Previous Rx's Medication Instructions Recorded Atorvastatin [Lipitor] 80 mg PO HS #1 tab 04/14/15 Metoprolol Tartrate [Lopressor] 25 mg PO BID #1 tab 04/14/15 Omeprazole [PriLOSEC] 40 mg PO AC-BRKFST #14 cap 07/29/15 Aspirin EC [Ecotrin Low Dose] 81 mg PO DAILY #0 09/23/16 Nitroglycerin Sl Tabs [Nitrostat] 0.4 mg SUBLINGUAL Q5M PRN #25 tab 09/17/17 Allergies Allergy/AdvReac Type Severity Reaction Status Date / Time Sulfa (Sulfonamide Allergy Rash/Hives Verified 04/16/19 12:45 Antibiotics) morphine AdvReac Abdominal Verified 04/16/19 12:45 Pain Review of Systems ROS Statement: Those systems with pertinent positive or pertinent negative responses have been documented in the HPI. ROS Other: All systems not noted in ROS Statement are negative. Constitutional: Denies: fever Eyes: Denies: eye pain ENT: Denies: ear pain Respiratory: Reports: as per HPI Cardiovascular: Reports: as per HPI Endocrine: Denies: fatigue Gastrointestinal: Denies: abdominal pain Genitourinary: Denies: dysuria Musculoskeletal: Denies: back pain Skin: Denies: rash Neurological: Denies: weakness Past Medical History Past Medical History: Coronary Artery Disease (CAD), Hyperlipidemia, Hypertension, Myocardial Infarction (PR), Pneumonia, Respiratory Disorder, Thyroid Disorder Additional Past Medical History / Comment(s): Idiopathic pulmonary fibrosis, hypothyroidism, daily steroids for several yrs, recent fall with R hand fracture/tendon and muscle tear R foot and bone contusion R thigh. Last Myocardial Infarction Date:: 04/12/15, 06/12/15 History of Any Multi-Drug Resistant Organisms: None Reported Past Surgical History: Section, Cholecystectomy, Heart Catheterization, Heart Catheterization With Stent, Hysterectomy, Tonsillectomy Additional Past Surgical History / Comment(s): Open lung biopsy, heart cath. 09-22-16, x 1, colonoscopy, R breast lumpectomy/biopsy-benign Past Anesthesia/Blood Transfusion Reactions: No Reported Reaction Date of Last Stent Placement:: 04/12/15 Past Psychological History: No Psychological Hx Reported Smoking Status: Never smoker Past Alcohol Use History: None Reported Past Drug Use History: None Reported - Past Family History Mother Family Medical History: Cancer, Coronary Artery Disease (CAD), Diabetes Mellitus, Hyperlipidemia, Myocardial Infarction (PR), Thyroid Disorder Additional Family Medical History / Comment(s): DIVERTICULITS. Mother from small cell lung cancer. Father Family Medical History: Dementia, Diabetes Mellitus Additional Family Medical History / Comment(s): multiple myloma, parkinsons General Exam Limitations: no limitations General appearance: alert, in no apparent distress Head exam: Present: atraumatic Eye exam: Present: normal appearance, PERRL ENT exam: Present: normal oropharynx Neck exam: Present: normal inspection Respiratory exam: Present: normal lung sounds bilaterally. Absent: chest wall tenderness Cardiovascular Exam: Present: regular rate, normal rhythm Expanded Peripheral pulses: 2+: Radial (R), Radial (L), Dorsalis Pedis (R), Dorsalis Pedis (L) GI/Abdominal exam: Present: soft. Absent: tenderness Extremities exam: Present: normal inspection. Absent: pedal edema, calf tenderness Neurological exam: Present: alert Psychiatric exam: Present: normal affect, normal mood Skin exam: Present: normal color Course Vital Signs 04/16/19 04/16/19 04/16/19 12:29 13:06 13:10 Temperature 98.4 F Pulse Rate 100 110 H Respiratory 16 40 H 22 Rate Blood Pressure 118/77 120/66 O2 Sat by Pulse 97 97 Oximetry 04/16/19 04/16/19 04/16/19 13:20 13:30 13:40 Temperature Pulse Rate 67 104 H Respiratory 20 37 H Rate Blood Pressure 120/66 120/66 120/66 O2 Sat by Pulse 95 93 L Oximetry 04/16/19 04/16/19 04/16/19 13:50 14:00 14:10 Temperature Pulse Rate 71 Respiratory 11 L Rate Blood Pressure 120/66 120/66 120/66 O2 Sat by Pulse 95 Oximetry EKG Findings - EKG Comments: EKG Findings:: Normal sinus rhythm at 77. CT 134. QRS 84. QT 388. QTC 439 no rmal axis. Normal QRS. No acute ST change. Medical Decision Making - Medical Decision Making Patient reevaluated and resting comfortably in bed. Patient updated on results and plan. Case was discussed in detail with Dr. Dillon, covering for Dr. hogan and Dr. sotomayor, who will admit. - Lab Data Result diagrams: 04/16/19 12:55 04/16/19 12:55 Lab Results 04/16/19 04/16/19 04/16/19 Range/Units 12:55 12:55 12:55 WBC 6.0 (3.8-10.6) k/uL RBC 4.33 (3.80-5.40) m/uL Hgb 13.7 (11.4-16.0) gm/dL Hct 40.9 (34.0-46.0) % MCV 94.3 (80.0-100.0) fL MCH 31.6 (25.0-35.0) pg MCHC 33.5 (31.0-37.0) g/dL RDW 14.7 (11.5-15.5) % Plt Count 286 (150-450) k/uL Neutrophils % 74 % Lymphocytes % 14 % Monocytes % 7 % Eosinophils % 2 % Basophils % 1 % Neutrophils # 4.4 (1.3-7.7) k/uL Lymphocytes # 0.8 L (1.0-4.8) k/uL Monocytes # 0.4 (0-1.0) k/uL Eosinophils # 0.1 (0-0.7) k/uL Basophils # 0.1 (0-0.2) k/uL PT 10.2 (9.0-12.0) sec INR 0.9 (<1.2) APTT 22.5 (22.0-30.0) sec D-Dimer 0.26 (<0.60) mg/L FEU Sodium 141 (137-145) mmol/L Potassium 4.8 (3.5-5.1) mmol/L Chloride 106 (98-107) mmol/L Carbon Dioxide 28 (22-30) mmol/L Anion Gap 7 mmol/L BUN 13 (7-17) mg/dL Creatinine 0.79 (0.52-1.04) mg/dL Est GFR (CKD-EPI)AfAm >90 (>60 ml/min/1.73 sqM) Est GFR (CKD-EPI)NonAf 84 (>60 ml/min/1.73 sqM) Glucose 121 H (74-99) mg/dL Calcium 9.5 (8.4-10.2) mg/dL Magnesium 2.0 (1.6-2.3) mg/dL Total Bilirubin 0.5 (0.2-1.3) mg/dL AST 28 (14-36) U/L ALT 27 (9-52) U/L Alkaline Phosphatase 63 (38-126) U/L Creatine Kinase 85 (30-135) U/L Troponin I (0.000-0.034) ng/mL Total Protein 6.7 (6.3-8.2) g/dL Albumin 4.0 (3.5-5.0) g/dL 04/16/19 Range/Units 12:55 WBC (3.8-10.6) k/uL RBC (3.80-5.40) m/uL Hgb (11.4-16.0) gm/dL Hct (34.0-46.0) % MCV (80.0-100.0) fL MCH (25.0-35.0) pg MCHC (31.0-37.0) g/dL RDW (11.5-15.5) % Plt Count (150-450) k/uL Neutrophils % % Lymphocytes % % Monocytes % % Eosinophils % % Basophils % % Neutrophils # (1.3-7.7) k/uL Lymphocytes # (1.0-4.8) k/uL Monocytes # (0-1.0) k/uL Eosinophils # (0-0.7) k/uL Basophils # (0-0.2) k/uL PT (9.0-12.0) sec INR (<1.2) APTT (22.0-30.0) sec D-Dimer (<0.60) mg/L FEU Sodium (137-145) mmol/L Potassium (3.5-5.1) mmol/L Chloride (98-107) mmol/L Carbon Dioxide (22-30) mmol/L Anion Gap mmol/L BUN (7-17) mg/dL Creatinine (0.52-1.04) mg/dL Est GFR (CKD-EPI)AfAm (>60 ml/min/1.73 sqM) Est GFR (CKD-EPI)NonAf (>60 ml/min/1.73 sqM) Glucose (74-99) mg/dL Calcium (8.4-10.2) mg/dL Magnesium (1.6-2.3) mg/dL Total Bilirubin (0.2-1.3) mg/dL AST (14-36) U/L ALT (9-52) U/L Alkaline Phosphatase (38-126) U/L Creatine Kinase (30-135) U/L Troponin I <0.012 (0.000-0.034) ng/mL Total Protein (6.3-8.2) g/dL Albumin (3.5-5.0) g/dL - Radiology Data Radiology results: image reviewed (Chest x-ray shows unchanged right basilar densities. Mild cardiomegaly.) Disposition Clinical Impression: Chest pain Disposition: ADMITTED IP TO THIS HOSP Is patient prescribed a controlled substance at d/c from ED?: No Referrals: Rodolfo Tejeda DO [Primary Care Provider] - 1-2 days Decision Time: 14:50
[2019-04-16 13:18] LABS: Basophils # (A) 0.1 k/uL (0-0.2); Basophils % (A) 1 %; Eosinophils # (A) 0.1 k/uL (0-0.7); Eosinophils % (A) 2 %; HCT 40.9 % (34.0-46.0); HGB 13.7 gm/dL (11.4-16.0); Lymphocytes # (A) 0.8 k/uL (1.0-4.8); Lymphocytes % (A) 14 %; MCH 31.6 pg (25.0-35.0); MCHC 33.5 g/dL (31.0-37.0); MCV 94.3 fL (80.0-100.0); Mean Platelet Volume 6.9; Monocytes # (A) 0.4 k/uL (0-1.0); Monocytes % (A) 7 %; Neutrophils # (A) 4.4 k/uL (1.3-7.7); Neutrophils % (A) 74 %; Platelet Count 286 k/uL (150-450); RBC 4.33 m/uL (3.80-5.40); RDW 14.7 % (11.5-15.5)
[2019-04-16 13:27] LABS: ALT 27 U/L (9-52); AST 28 U/L (14-36); African American GFR (CKD) >90 (>60 ml/min/1.73 sqM); Alkaline Phosphatase 63 U/L (38-126); Anion Gap 7 mmol/L; Blood Urea Nitrogen 13 mg/dL (7-17); Calcium 9.5 mg/dL (8.4-10.2); Carbon Dioxide 28 mmol/L (22-30); Chloride 106 mmol/L (98-107); Creatine Kinase 85 U/L (30-135); Glucose 121 mg/dL (74-99); Potassium 4.8 mmol/L (3.5-5.1); Sodium 141 mmol/L (137-145); Total Bilirubin 0.5 mg/dL (0.2-1.3); Total Protein 6.7 g/dL (6.3-8.2)
--- NOTE | 2019-04-16 13:33 | XR ---
EXAMINATION TYPE: XR chest 2V DATE OF EXAM: 04/16/2019 HISTORY: Chest Pain. REFERENCE: Previous study dated 04/11/2019. FINDINGS: Bibasilar opacities persist, unchanged from previous. The heart is minimally enlarged. I co uld not exclude a small left effusion. IMPRESSION: 1. PERSISTENT BIBASILAR DENSITIES, WORSE ON THE LEFT THAN THE RIGHT. 2. MILD CARDIOMEGALY. 3. I COULD NOT EXCLUDE A SMALL LEFT.
[2019-04-16 13:36] LABS: D-Dimer 0.26 mg/L FEU (<0.60); INR 0.9 (<1.2); Partial Thromboplastin Time 22.5 sec (22.0-30.0); Prothrombin Time 10.2 sec (9.0-12.0)
[2019-04-16] MEDS ORDERED: NITROGLYCERIN SL TABS 0.4 MG TAB SUBLINGUAL PRN (14:50)
[2019-04-16] MEDS: NITROGLYCERIN OINT 1 INCH/GM PACKET TOPICAL SCH ×2 (18:41→21:44)
[2019-04-16] MEDS ORDERED: ALBUTEROL NEBULIZED 2.5 MG/3 ML INHALATION PRN (18:45)
[2019-04-16] MEDS: ALBUTEROL NEBULIZED 2.5 MG/3 ML INHALATION SCH (19:16)
[2019-04-16] MEDS ORDERED: AZITHROMYCIN 500 MG in SODIUM CHLORIDE 0.9% 250 ML IVPB SCH (19:30)
[2019-04-16] MEDS: METOPROLOL TARTRATE 25 MG TAB PO SCH (20:35)
--- NOTE | 2019-04-16 20:58 | HP ---
HISTORY AND PHYSICAL DATE OF SERVICE: 04/16/2019 CHIEF COMPLAINT: Chest pain. HISTORY OF PRESENT ILLNESS: This 59-year-old woman with a past medical history of multiple medical problems including CAD, hypertension, hyperlipidemia, history of pneumonia, history of idiopathic pulmonary fibrosis being followed by Dr. Tejeda in the outpatient setting was admitted with complaints of chest pain. The patient had previously 2 stents. The patient recently admitted with chest pain and stress test was negative apparently. The patient's chest pain felt in the anterior part of the chest, pressure type of sensation which is [id number] and radiated to the neck not associated with sweating or palpitations. Patient apparently was in the process of moving also. There is no history of fever, rigors or chills. No history of headache, loss of consciousness or seizures. The patient has significant family history. Multiple members of family had premature coronary artery disease and multiple complications also. The patient also complains of cough also which is not improving for the last several days according to her. PAST MEDICAL HISTORY: CAD, hypertension, history of myocardial infarction, history of pneumonia, history of hypothyroidism, idiopathic pulmonary fibrosis, history of CAD, CAD/stent. MEDICATION: Home medications are: 1. Prednisone 2.5 mg daily. 2. Imuran 50 mg p.o. daily. 3. Prilosec 40 mg a.c. breakfast. 4. Nitrostat 0.4 mg p.r.n. 5. Lopressor 25 mg p.o. b.i.d. 6. Cozaar 25 mg p.o. daily. 7. Synthroid 75 mcg p.o. daily. 8. Vitamin D3 2000. 9. Benzonatate 100 mg p.o. daily. 10.Lipitor 80 mg q.h.s. 11.Ecotrin 81 mg daily. 12.Augmentin 875 mg 1 p.o. b.i.d. ALLERGIES: SULFA, MORPHINE. FAMILY HISTORY: History of cancer, CAD, diabetes, hypertension, hyperlipidemia, myocardial infarction, history of diverticulitis. SOCIAL HISTORY: No history of smoking. No history of alcohol. REVIEW OF SYSTEMS: ENT: No diminished hearing. No diminished vision. CARDIOVASCULAR as mentioned earlier. RESPIRATION as mentioned earlier. GI no nausea or vomiting. no dysuria. Nervous system: No numbness or weakness. ALLERGY/IMMUNOLOGY: As mentioned earlier. HEMATOLOGY/ONCOLOGY: No history of anemia. ENDOCRINE: Diabetes, hypothyroidism present. CONSTITUTIONAL: As mentioned earlier. DERMATOLOGY: Negative. RHEUMATOLOGY: Negative. PSYCHIATRY: As mentioned. PHYSICAL EXAMINATION: Alert and oriented x3. Pulse is 52, blood pressure 106/60, respirations 16, temperature 98.2, pulse ox 97% on room air. HEENT: Conjunctivae normal. NECK: No jugular venous distention. CARDIOVASCULAR: S1, S2 muffled. RESPIRATORY: Breath sounds diminished in the bases. Bilateral scattered rhonchi and crackles. ABDOMEN: Soft, nontender. No mass. LEGS no edema. No swelling. NERVOUS SYSTEM: Higher functions as mentioned earlier. Moves all four extremities. No focal deficits. LYMPHATICS: No lymph nodes palpable in the neck, axillae or groin. SKIN: No ulcer, no rashes, no bleeding. JOINTS: No active deforming arthropathy. LAB STUDIES: At this time shows: CBC within normal limits and glucose 121. ASSESSMENT: 1. Chest pain, possible unstable angina. 2. History of coronary artery disease/ stents. 3. Persistent cough. 4. Idiopathic pulmonary fibrosis. 5. History of coronary artery disease. 6. Hypertension. 7. Hyperlipidemia. 8. History of pneumonia. 9. History of hypothyroidism. 10.History of steroids. 11.History of cholecystectomy. RECOMMENDATIONS AND DISCUSSION: In this 59-year-old woman who presented with multiple complex medical issues, at this time, I recommend to continue current medications, management and symptomatic treatment. Cardiology consultation, possible cardiac catheterization. Otherwise, we will also consult with Pulmonology and continue to monitor. Empiric antibiotics will be given for the cough also. A chest x-ray also will be done. Further recommendations to follow. Prognosis guarded. A copy of dictation being forwarded to Dr. Tejeda who is the primary physician. MMODL / IJN: [id number] /
[2019-04-16] MEDS ORDERED: ATORVASTATIN 80 MG TAB PO SCH (21:00)
[2019-04-16] MEDS ORDERED: ONDANSETRON 4 MG/2 ML VIAL IVP PRN (21:19)
[2019-04-17] MEDS ORDERED: LEVOTHYROXINE 75 MCG TAB PO SCH (06:30)
[2019-04-17] MEDS: ALBUTEROL NEBULIZED 2.5 MG/3 ML INHALATION SCH ×2 (07:18→12:54)
[2019-04-17] MEDS ORDERED: PANTOPRAZOLE 40 MG TABLET PO SCH (07:30)
[2019-04-17] MEDS ORDERED: ASPIRIN-ACET-CAFF 250-250-65MG 1 EACH TAB PO PRN (07:38)
[2019-04-17 07:53] LABS: Basophils # (A) 0.1 k/uL (0-0.2); Basophils % (A) 1 %; Eosinophils # (A) 0.2 k/uL (0-0.7); Eosinophils % (A) 5 %; HCT 39.5 % (34.0-46.0); Lymphocytes # (A) 1.3 k/uL (1.0-4.8); Lymphocytes % (A) 32 %; MCH 31.1 pg (25.0-35.0); MCHC 32.8 g/dL (31.0-37.0); MCV 94.6 fL (80.0-100.0); Mean Platelet Volume 7.2; Monocytes # (A) 0.3 k/uL (0-1.0); Monocytes % (A) 8 %; Neutrophils # (A) 2.2 k/uL (1.3-7.7); Neutrophils % (A) 52 %; Platelet Count 263 k/uL (150-450); RBC 4.18 m/uL (3.80-5.40); RDW 14.3 % (11.5-15.5); WBC 4.2 k/uL (3.8-10.6)
[2019-04-17 08:01] LABS: African American GFR (CKD) >90 (>60 ml/min/1.73 sqM); Anion Gap 6 mmol/L; Blood Urea Nitrogen 14 mg/dL (7-17); Calcium 8.9 mg/dL (8.4-10.2); Carbon Dioxide 30 mmol/L (22-30); Chloride 106 mmol/L (98-107); Cholesterol 141 mg/dL (<200); Glucose 95 mg/dL (74-99); HDL Cholesterol 59 mg/dL (40-60); LDL Cholesterol,Calculated 65 mg/dL (0-99); Potassium 4.1 mmol/L (3.5-5.1); Sodium 142 mmol/L (137-145); Triglycerides 87 mg/dL (<150)
[2019-04-17] MEDS: METOPROLOL TARTRATE 25 MG TAB PO SCH (08:43)
[2019-04-17] MEDS ORDERED: CHOLECALCIFEROL 1,000 UNIT TAB PO SCH (09:00)
[2019-04-17] MEDS ORDERED: LOSARTAN 25 MG TAB PO SCH (09:00)
[2019-04-17] MEDS ORDERED: ASPIRIN 325 MG TAB PO SCH (09:00)
[2019-04-17] MEDS ORDERED: predniSONE 2.5 MG TAB PO SCH (09:00)
[2019-04-17] MEDS ORDERED: BENZONATATE 100 MG CAP PO SCH (09:00)
[2019-04-17] MEDS ORDERED: ASPIRIN 81 MG PO SCH (09:00)
[2019-04-17] MEDS ORDERED: azaTHIOprine 50 MG TAB PO SCH (09:00)
--- NOTE | 2019-04-17 09:27 | P.CRDCN ---
History of Present Illness History of present illness: This is a pleasant 59-year-old female past medical history significant for coronary artery disease status post 2 stents placed to the LAD in 2014. She also has pulmonary fibrosis, hypertension, dyslipidemia and hypothyroidism. She follows in the office with Dr. Beasley. We have been asked to see her in consultation secondary to chest discomfort. She complains of a pressure se nsation in the midsternal region radiating to the base of the neck. She states it feels like her heart is racing and fluttering. Also describes a dry cough. There is no radiation to the arm, back or jaw. The pressure has been present for the past few months intermittently and not associated with exertion, typically occurs at rest. 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 She was seen here for similar complaints last week. At that time she underwent a dobutamine stress echocardiogram which was negative for stress- induced ischemia. Echocardiogram obtained at that time revealed preserved LV systolic function with ejection fraction greater than 55%. She did have an episode of chest pressure and palpitations while here in the hospital. Telemetry tracings reviewed and reveal persistent sinus mechanism with intermittent episodes of sinus tach heart rate 110. This was also in the setting of tachypnea. EKG reveals sinus mechanism with no acute ST or T wave abnormalities noted. Chest x-ray reveals basilar densities. Laboratory data reviewed, cardiac enzymes negative 3, d-dimer 0.26, sodium 142, potassium 4.1, creatinine 0.83, magnesium 2.0, CBC unremarkable, LDL 65. Current cardiac medications include aspirin 81 mg daily, atorvastatin 80 mg daily, losartan 25 mg daily, Lopressor 25 mg twice a day. Most recent cardiac catheterization in 2018 revealed left main free of obstructive disease, LAD patent in the midportion with mild 10-20% stenosis noted, circumflex no obstructive disease, RCA no obstructive disease. At the time of my exam: CONSTITUTIONAL: Denies fever. Denies chills. EYES: Denies blurred vision. Denies vision changes. Denies eye pain. EARS, NOSE, MOUTH & THROAT: Denies headache. Denies sore throat. Denies ear pain. CARDIOVASCULAR: Complains of chest pain. Denies shortness of breath. Denies orthopnea. Denies PND. Complains of palpitations. RESPIRATORY: Complains of cough. GASTROINTESTINAL: Denies abdominal pain. Denies diarrhea. Denies constipation. Denies nausea. Denies vomiting. MUSCULOSKELETAL: Denies myalgias. INTEGUMENTARY: Denies pruitis. Denies rash. NEUROLOGIC: Denies numbness. Denies tingling. Denies weakness. PSYCHIATRIC: Denies anxiety. Denies depression. ENDOCRINE: Denies fatigue. Denies weight change. Denies polydipsia. Denies polyurina. GENITOURINARY: Denies burning, hematuria or urgency with micturation. HEMATOLOGIC: Denies history of anemia. Denies bleeding. Blood pressure 117/72 heart rate 88 afebrile maintaining oxygen saturation on room air GENERAL: This is a 59-year-old female in no apparent distress at the time of my examination. HEENT: Head is atraumatic, normocephalic. Pupils are equal, round. Sclerae anicteric. Conjunctivae are clear. Mucous membranes of the mouth are moist. Neck is supple. There is no jugular venous distention. No carotid bruit is heard. LUNGS: Clear to auscultation no wheezes, rales or rhonchi. No chest wall tenderness is noted on palpation or with deep breathing. HEART: Regular rate and rhythm without murmurs, rubs or gallops. S1 and S2 heard. ABDOMEN: Soft, nontender. Bowel sounds are heard. No organomegaly noted. EXTREMITIES: No evidence of peripheral edema and no calf tenderness noted. VASCULAR: Radial and dorsalis pedis pulses palpated, no evidence of clubbing. NEUROLOGIC: Patient is awake, alert and oriented x3. ASSESSMENT Chest pain, atypical. An acute coronary event has been ruled out. Palpitations, telemetry tracings reveal sinus tachycardia in the setting of tachypnea. No acute arrhythmia noted. Pulmonary fibrosis Coronary artery disease Hypertension Dyslipidemia PLAN An acute coronary event has been ruled out. Chest pain is atypical and not associated with exertion or activity. No EKG evidence of ischemia, negative stress test last week and unremarkable catheterization last year. Stable for discharge from a cardiac perspective. Follow up with Dr. Beasley in the office in 2 weeks. Thank you kindly for this consultation. Nurse Practitioner note has been reviewed, I agree with a documented findings and plan of care. Patient was seen and examined. Past Medical History Past Medical History: Coronary Artery Disease (CAD), Hyperlipidemia, Hypertension, Myocardial Infarction ([place]), Pneumonia, Respiratory Disorder, Thyroid Disorder Additional Past Medical History / Comment(s): Idiopathic pulmonary fibrosis, hypothyroidism, daily steroids for several yrs, recent fall with R hand fracture/tendon and muscle tear R foot and bone contusion R thigh. Last Myocardial Infarction Date:: 04/12/15, 06/12/15 History of Any Multi-Drug Resistant Organisms: None Reported Past Surgical History: Section, Cholecystectomy, Heart Catheterization, Heart Catheterization With Stent, Hysterectomy, Tonsillectomy Additional Past Surgical History / Comment(s): Open lung biopsy, heart cath. 09-22-16, x 1, colonoscopy, R breast lumpectomy/biopsy-benign Past Anesthesia/Blood Transfusion Reactions: No Reported Reaction Date of Last Stent Placement:: 04/12/15 Past Psychological History: No Psychological Hx Reported Additional Psychological History / Comment(s): Pt LIVES BY HERSELF. She is independent. She uses no assistive device. She drives. Smoking Status: Never smoker Past Alcohol Use History: None Reported Past Drug Use History: None Reported - Past Family History Mother Family Medical History: Cancer, Coronary Artery Disease (CAD), Diabetes Mellitus, Hyperlipidemia, Myocardial Infarction ([place]), Thyroid Disorder Additional Family Medical History / Comment(s): DIVERTICULITS. Mother from small cell lung cancer. Father Family Medical History: Dementia, Diabetes Mellitus Additional Family Medical History / Comment(s): multiple myloma, parkinsons Medications and Allergies Home Medications Medication Instructions Recorded Confirmed Type Benzonatate 100 mg PO DAILY 04/12/15 04/16/19 History azaTHIOprine [Imuran] 50 mg PO DAILY 04/12/15 04/16/19 History Atorvastatin [Lipitor] 80 mg PO HS #1 tab 04/14/15 04/16/19 Rx Metoprolol Tartrate [Lopressor] 25 mg PO BID #1 tab 04/14/15 04/16/19 Rx Omeprazole [PriLOSEC] 40 mg PO AC-BRKFST #14 cap 07/29/15 04/16/19 Rx Aspirin EC [Ecotrin Low Dose] 81 mg PO DAILY #0 09/23/16 04/16/19 Rx Levothyroxine Sodium [Synthroid] 75 mcg PO DAILY 09/15/17 04/16/19 History Losartan [Cozaar] 25 mg PO DAILY 09/15/17 04/16/19 History predniSONE 2.5 mg PO DAILY 09/15/17 04/16/19 History Nitroglycerin Sl Tabs [Nitrostat] 0.4 mg SUBLINGUAL Q5M PRN #25 tab 09/17/17 04/16/19 Rx Cholecalciferol (Vitamin D3) 2,000 unit PO DAILY 04/11/19 04/16/19 History [Vitamin D3] Amoxic-Pot Clav 875-125Mg 1 tab PO Q12HR 04/16/19 04/16/19 History [Augmentin 875-125] Allergies Allergy/AdvReac Type Severity Reaction Status Date / Time Sulfa (Sulfonamide Allergy Rash/Hives Verified 04/16/19 12:45 Antibiotics) morphine AdvReac Abdominal Verified 04/16/19 12:45 Pain Physical Exam Vitals: Vital Signs Temp Pulse Pulse Resp BP BP BP 04/17/19 07:22 76 04/17/19 04:00 98.5 F 56 L 18 106/65 04/17/19 03:29 65 16 04/16/19 23:36 65 16 04/16/19 23:25 97.9 F 65 16 86/47 04/16/19 20:27 100/64 102/61 04/16/19 20:00 81 18 04/16/19 19:46 98.0 F 81 18 87/58 86/50 04/16/19 19:25 88 04/16/19 19:16 84 04/16/19 16:00 52 L 16 04/16/19 15:18 98.2 F 52 L 16 106/63 04/16/19 15:04 87 16 120/66 04/16/19 14:10 120/66 04/16/19 14:00 120/66 04/16/19 13:50 71 11 L 120/66 04/16/19 13:40 104 H 37 H 120/04/16/19 13:30 67 20 120/66 04/16/19 13:20 120/66 04/16/19 13:10 110 H 22 120/66 04/16/19 13:06 40 H 04/16/19 12:29 98.4 F 100 16 118/77 Pulse Ox 04/17/19 07:22 97 04/17/19 04:00 95 04/17/19 03:29 04/16/19 23:36 04/16/19 23:25 97 04/16/19 20:27 04/16/19 20:00 04/16/19 19:46 95 04/16/19 19:25 04/16/19 19:16 04/16/19 16:00 04/16/19 15:18 97 04/16/19 15:04 97 04/16/19 14:10 04/16/19 14:00 04/16/19 13:50 95 04/16/19 13:40 93 L 04/16/19 13:30 95 04/16/19 13:20 04/16/19 13:10 97 04/16/19 13:06 04/16/19 12:29 97 Intake and Output 04/16/19 04/17/19 04/17/19 22:59 06:59 14:59 Intake Total 300 Balance 300 Intake: Intake, IV Titration 300 Amount Azithromycin 500 mg In 250 Sodium Chloride 0.9% 250 ml @ 250 mls/hr IVPB DAILY@1800 [facility] Rx#: [id number] cefTRIAXone 1 gm In 50 Sodium Chloride 0.9% 50 ml @ 100 mls/hr IVPB Q24HR [facility] Rx#:[id number] Other: Voiding Method Toilet Toilet # Voids 1 1 Results 04/17/19 07:39 04/17/19 07:39 Cardiac Enzymes 04/16/19 04/16/19 04/16/19 Range/Units 12:55 12:55 19:03 AST 28 (14-36) U/L Troponin I <0.012 <0.012 (0.000-0.034) ng/mL 04/17/19 Range/Units 00:43 AST (14-36) U/L Troponin I <0.012 (0.000-0.034) ng/mL Coagulation 04/16/19 Range/Units 12:55 PT 10.2 (9.0-12.0) sec APTT 22.5 (22.0-30.0) sec CBC 04/16/19 Range/Units 12:55 WBC 6.0 (3.8-10.6) k/uL RBC 4.33 (3.80-5.40) m/uL Hgb 13.7 (11.4-16.0) gm/dL Hct 40.9 (34.0-46.0) % Plt Count 286 (150-450) k/uL Comprehensive Metabolic Panel 04/16/19 Range/Units 12:55 Sodium 141 (137-145) mmol/L Potassium 4.8 (3.5-5.1) mmol/L Chloride 106 (98-107) mmol/L Carbon Dioxide 28 (22-30) mmol/L BUN 13 (7-17) mg/dL Creatinine 0.79 (0.52-1.04) mg/dL Glucose 121 H (74-99) mg/dL Calcium 9.5 (8.4-10.2) mg/dL AST 28 (14-36) U/L ALT 27 (9-52) U/L Alkaline Phosphatase 63 (38-126) U/L Total Protein 6.7 (6.3-8.2) g/dL Albumin 4.0 (3.5-5.0) g/dL Current Medications Generic Name Dose Route Start Last Admin Trade Name Freq PRN Reason Stop Dose Admin Albuterol Sulfate 2.5 mg 04/16/19 20:00 04/17/19 07:18 Ventolin Nebulized INHALATION 2.5 mg RT-TID POP Administration Albuterol Sulfate 2.5 mg 04/16/19 18:45 Ventolin Nebulized INHALATION RT-TID PRN Shortness Of Breath Or Wheezing Aspirin 81 mg 04/17/19 09:00 Aspirin PO DAILY POP Atorvastatin Calcium 80 mg 04/16/19 21:00 04/16/19 20:34 Lipitor PO 80 mg HS POP Administration Azathioprine 50 mg 04/17/19 09:00 Imuran PO DAILY POP Benzonatate 100 mg 04/17/19 09:00 Tessalon Perles PO DAILY POP Cholecalciferol 2,000 unit 04/17/19 09:00 Vitamin D3 (25 Mcg = 1000 Iu) PO DAILY POP Ceftriaxone Sodium 1 gm/ 50 mls @ 100 mls/hr 04/16/19 19:30 04/16/19 19:53 Sodium Chloride IVPB 100 mls/hr Q24HR POP Administration Azithromycin 500 mg/ Sodium 250 mls @ 250 mls/hr 04/16/19 19:30 04/16/19 20:28 Chloride IVPB 250 mls/hr DAILY@1800 POP Administration Levothyroxine Sodium 75 mcg 04/17/19 06:30 04/17/19 06:20 Synthroid PO 75 mcg DAILY@0630 [facility] Administration Losartan Potassium 25 mg 04/17/19 09:00 Cozaar PO DAILY [facility] Metoprolol Tartrate 25 mg 04/16/19 21:00 04/16/19 20:35 Lopressor PO 25 mg BID [facility] Administration Nitroglycerin 0.4 mg 04/16/19 14:50 Nitrostat SUBLINGUAL Q5M PRN Chest Pain Nitroglycerin 1 inch 04/16/19 18:00 04/16/19 21:44 Nitro-Bid Oint TOPICAL Not Given Q6HR [facility] Ondansetron HCl 4 mg 04/16/19 21:19 04/16/19 21:45 Zofran IVP 4 mg Q8HR PRN Administration Nausea And Vomiting Pantoprazole Sodium 40 mg 04/17/19 07:30 Protonix PO AC-BRKFST [facility] Prednisone 2.5 mg 04/17/19 09:00 PO DAILY [facility] Sodium Chloride 10 ml 04/16/19 21:00 04/16/19 20:30 Saline Flush IV 10 ml BID [facility] Administration Intake and Output 04/16/19 04/17/19 04/17/19 22:59 06:59 14:59 Intake Total 300 Balance 300 Intake: Intake, IV Titration 300 Amount Azithromycin 500 mg In 250 Sodium Chloride 0.9% 250 ml @ 250 mls/hr IVPB DAILY@1800 [facility] Rx#: [id number] cefTRIAXone 1 gm In 50 Sodium Chloride 0.9% 50 ml @ 100 mls/hr IVPB Q24HR [facility] Rx#:[id number] Other: Voiding Method Toilet Toilet # Voids 1 1 04/16/19 12:55 04/16/19 12:55
[2019-04-17 12:05] VITALS: BP 128/67; PULSE 56; RESP 18; TEMP 98.2
--- NOTE | 2019-04-17 19:47 | CONS ---
CONSULTATION PULMONARY/CRITICAL CARE CONSULTATION: DATE OF CONSULTATION: 04/17/2019 This is a 59-year-old female who serves as one of my primary patients. She comes into the emergency room on April 16 complaining of chest discomfort. It has been going on for 4 or 5 days. She apparently was recently in the hospital with a similar episode and was seen by Cardiology and cleared. In addition to chest pain she apparently has been having rapid heartbeat and palpitations. The patient's pain is a pressure sensation in her midsternal region. It does apparently radiate up into the neck area. She really denies any shortness of breath to me. She does have cough without phlegm production. She denied any nausea or vomiting. No radiation of the pain elsewhere. No fever, no chills. Not coughing up any phlegm. The patient does have a history of coronary artery disease and previous stent placement. Currently, she believes that some of her complaints, including the palpitations and leg cramps, relate to the fact that one of the orthopedists put her on high-dose vitamin D3 therapy. Anyway, she is feeling much better now. She has been cleared by Internal Medicine and Cardiology. She does carry with her a diagnosis of nonspecific interstitial pneumonia, for which she has been treated for a number of years, initially by Dr. Barajas at [facility] and now more recently by me. HOME MEDICATIONS: Her home medications include: 1. Tessalon Perles. 2. Imuran. 3. Synthroid. 4. Losartan. 5. Prednisone 2.5 mg a day. 6. Vitamin D3 at 2000 IU per day, but previously at 10,000 IU per day. 7. Augmentin on her last discharge from the hospital. She is not quite done with the Augmentin, but I told her to stop it anyway. 8. Lipitor. 9. Lopressor. 10.Prilosec. 11.Low-dose aspirin. 12.Nitroglycerin sublingually. ALLERGIES: SULFA and MORPHINE. PAST MEDICAL HISTORY: Her past medical history includes: 1. CAD with previous stent placement. 2. Hyperlipidemia. 3. Hypertension. 4. Myocardial infarction. 5. Pneumonia. 6. Nonspecific interstitial pneumonia. 7. Hypothyroidism. 8. Recent trauma to the leg and torn tendon. SURGICAL HISTORY: Surgical history includes: 1. Cholecystectomy. 2. Heart catheterization. 3. Stent placement. 4. . 5. Hysterectomy. 6. Tonsillectomy. 7. She has also had an open lung biopsy for the diagnosis of nonspecific interstitial pneumonia. 8. She has had a right breast lumpectomy and a biopsy. 9. Colonoscopy. SOCIAL HISTORY: She is a lifelong nonsmoker. Denies any alcohol or illicit drug use. FAMILY HISTORY: Mother with cancer, CAD, diabetes, hyperlipidemia, myocardial infarction and hypothyroidism. Mother had small-cell lung cancer. Father's history includes dementia and diabetes as well as multiple myeloma and Parkinson's disease. REVIEW OF SYSTEMS: CONSTITUTIONAL: Negative. NEUROLOGIC: Negative. HEENT: Negative. CARDIOVASCULAR: Chest pain and palpitations. PULMONARY: Cough, nonproductive. GI: Negative. : Negative. RHEUMATOLOGIC: Negative. IMMUNOLOGIC: Negative. ENDOCRINOLOGIC: Negative. DERMATOLOGIC: Negative. PHYSICAL EXAMINATION: VITAL SIGNS: Vital signs are reviewed. Temperature is 98.5, heart rate 80, respiratory rate 17, blood pressure 117/72, mean 87, room-air saturation 97%. GENERAL: Appears in no acute distress. HEENT: HEENT examination is grossly unremarkable. Mucous membranes are moist. No oral lesions. NECK: Supple. Full range of motion. No adenopathy, thyromegaly or neck vein distention. CARDIOVASCULAR: Regular rhythm and rate. Heart rate 80. S1, S2 normal. No S3, S4 or murmur. LUNGS: Lungs reveal clear breath sounds. No wheezes or rhonchi. No crackles. ABDOMEN: Soft. Bowel sounds are heard. EXTREMITIES: Intact. No cyanosis, clubbing or edema. SKIN: Without rash. NEUROLOGIC: Neurologic examination is nonfocal. IMAGING: Chest x-ray shows chronic changes primarily. LABS: Reviewed. CBC is normal. PT, INR, PTT, D-dimer all normal. Sodium, potassium, chloride, CO2, anion gap, BUN and creatinine were all normal. Troponins were negative x3. Medications are reviewed. ASSESSMENT: 1. Chest pain, likely noncardiac in origin. 2. Palpitations, which may relate to various medications the patient is on, including antibiotics and/or vitamin D. 3. Biopsy-proven nonspecific interstitial pneumonia, for which the patient is on low- dose prednisone and Imuran. 4. History of coronary artery disease with previous stent placement. 5. History of myocardial infarction. 6. History of hypothyroidism. 7. Hyperlipidemia. 8. History of hypertension. 9. Previous history of pneumonia. PLAN: The patient could be discharged home. I told her to take just low-dose vitamin D at 1000 to 2000 IU per day. No additional recommendations are made. No antibiotics at this time. She can quit the Augmentin. No additional steroids. She should resume her small dose at 2.5 mg a day. She will see me in the office in followup. Additional recommendations and suggestions are forthcoming. I do appreciate input by Cardiology and Internal Medicine. MMODL / IJN: [id number] /
--- NOTE | 2019-04-18 00:59 | DS ---
DISCHARGE SUMMARY DATE OF SERVICE: 04/17/2019. FINAL DIAGNOSES: 1. Chest pain possible unstable angina. Myocardial infarction ruled out. 2. Tachycardia for evaluation, possibly sinus, rule out cardiac arrhythmia. 3. History of coronary artery disease, stents. 4. Persistent cough. 5. Idiopathic pulmonary fibrosis. 6. History of coronary artery disease. 7. Hypertension. 8. Hyperlipidemia. 9. History of pneumonia. 10.History of hypothyroidism. 11.History of cholecystectomy. DISCHARGE DISPOSITION: Patient being discharged in a stable condition with guarded prognosis. Discharge cleared by cardiology. HISTORY OF PRESENT ILLNESS: This 59-year-old woman with a past medical history of multiple medical problems being followed Dr. Tejeda in the outpatient setting was admitted with multiple symptoms of chest pain and cough and other issues. Myocardial infarction was ruled out. Cardiology saw the patient. Recommended outpatient followup. The patient had episodes of ventricular tachycardia sinus tachycardia while in the hospital. Would recommend outpatient Holter monitoring if the symptoms recur otherwise. On exam, vitals are stable. Cardiovascular: S1, S2. Abdomen soft. Nervous system: No focal deficits. DISCHARGE ADVICE AND MEDICATIONS: 1. Diet is cardiac diet. 2. Activity limited until follow up. 3. Follow up with Dr. Tejeda in 2-3 days. 4. Follow up with Dr. Beasley as recommended. DISCHARGE MEDICATIONS: 1. Augmentin 875 mg finish the home dose. 2. Benzonatate 100 mg p.o. daily. 3. Cozaar 25 mg daily. 4. Imuran 50 mg p.o. daily. 5. Prednisone 2.5 daily. 6. Synthroid 75 mcg p.o. daily. 7. Vitamin D3 2000 daily. 8. Ecotrin 81 mg daily. 9. Lipitor 80 mg q.h.s. 10.Lopressor 25 mg p.o. b.i.d. 11.Nitrostat 0.4 mg sublingual p.r.n. 12.Prilosec 40 mg with breakfast. Once again, the patient being discharged in a stable condition with guarded prognosis. MMODL / IJN: [id number] /
== END 2019-04-17 13:12 ==
LOC: EC 12:27 → 1SOBS 14:50
PROVIDERS: ADMIT Hospitalist; ATTEND Hospitalist
DX: R07.89 Other chest pain (principal); J84.112 Idiopathic pulmonary fibrosis; J84.89 Other specified interstitial pulmonary diseases; I11.9 Hypertensive heart disease without heart failure; R00.0 Tachycardia, unspecified; R61 Generalized hyperhidrosis; R11.0 Nausea; I25.10 Atherosclerotic heart disease of native coronary artery without angina pectoris; E78.5 Hyperlipidemia, unspecified; E03.9 Hypothyroidism, unspecified; R25.2 Cramp and spasm; Z79.899 Other long term (current) drug therapy; Z79.890 Hormone replacement therapy; Z79.52 Long term (current) use of systemic steroids; Z79.82 Long term (current) use of aspirin; Z88.2 Allergy status to sulfonamides; Z88.5 Allergy status to narcotic agent; I25.2 Old myocardial infarction; Z87.01 Personal history of pneumonia (recurrent); Z90.49 Acquired absence of other specified parts of digestive tract; Z95.5 Presence of coronary angioplasty implant and graft; Z87.828 Personal history of other (healed) physical injury and trauma; Z90.710 Acquired absence of both cervix and uterus; Z80.7 Family history of other malignant neoplasms of lymphoid, hematopoietic and related tissues; Z83.3 Family history of diabetes mellitus; Z82.49 Family history of ischemic heart disease and other diseases of the circulatory system; Z80.1 Family history of malignant neoplasm of trachea, bronchus and lung; Z82.0 Family history of epilepsy and other diseases of the nervous system; Z83.49 Family history of other endocrine, nutritional and metabolic diseases; Z81.8 Family history of other mental and behavioral disorders; Z83.79 Family history of other diseases of the digestive system
CPT/HCPCS: 96365; 96367; 96375; 99285; 36415; 94640 ×2; 94760; 93005; 85379; 80061; 80053; 80048; 82550; 83735; 84484 ×2; 85025 ×2; 85610; 85730; 71046; G0378 ×2; J7500; J2405; J0456; J0696 ×2; J7512

== ENCOUNTER → 2019-05-10 | Outpatient (CLI) | payer MEDICARE | END | disposition home or self-care (01) | LOC: LABWHC1 16:05 | PROVIDERS: ATTEND Internal Medicine Endocrinology, Diabetes & Metabolism | DX: E03.8 Other specified hypothyroidism (principal) | CPT/HCPCS: 36415; 84443 ==

== ENCOUNTER → 2019-06-12 | Outpatient (CLI) | payer MEDICARE | END | disposition home or self-care (01) | LOC: LABWHC1 10:52 | PROVIDERS: ATTEND Internal Medicine Critical Care Medicine | DX: E55.9 Vitamin D deficiency, unspecified (principal) | CPT/HCPCS: 36415; 82306 ==

== ENCOUNTER 2019-08-06 06:41 | Emergency (ER) | payer MEDICARE, OTHER ==
[2019-08-06] MEDS ORDERED: methylPREDNISolone SOD SUCCI 125 MG/2 ML VIAL IV STA (07:03)
[2019-08-06] MEDS ORDERED: ACETAMINOPHEN TAB 500 MG TAB PO STA (07:03)
[2019-08-06] MEDS ORDERED: SODIUM CHLORIDE 0.9% 1,000 ML IV STA ×2 (07:03→08:08)
[2019-08-06] MEDS ORDERED: IPRATROPIUM-ALBUTEROL 3 ML NEB INHALATION STA (07:03)
[2019-08-06] MEDS ORDERED: KETOROLAC 30 MG/ML 1 ML VIAL IVP STA (07:05)
--- NOTE | 2019-08-06 07:08 | ED ---
URI HPI - General Chief Complaint: Upper Respiratory Infection Stated Complaint: flu Time Seen by Provider: 08/06/19 06:54 Source: patient, family, RN notes reviewed, old records reviewed Mode of arrival: ambulatory Limitations: no limitations - History of Present Illness Initial Comments: 59-year-old female presents today for cough congestion nausea vomiting diarrhea. Symptoms for 2 days. Patient reports that yesterday she had some episodes of diarrhea and vomiting. And she was feeling very weak and passed out. She reports that she fell onto her tailbone. Has been having some pain with this. Patient states that she does have history of coronary fibrosis. She denies any current chest pain. Denies any abdominal pain. She states she's had no blood in her nose frequently. Patient states that she's had no bloody stools or bloody emesis. - Related Data Home Medications Medication Instructions Recorded Confirmed Benzonatate 100 mg PO DAILY 04/12/15 04/16/19 azaTHIOprine [Imuran] 50 mg PO DAILY 04/12/15 04/16/19 Levothyroxine Sodium [Synthroid] 75 mcg PO DAILY 09/15/17 04/16/19 Losartan [Cozaar] 25 mg PO DAILY 09/15/17 04/16/19 predniSONE 2.5 mg PO DAILY 09/15/17 04/16/19 Cholecalciferol (Vitamin D3) 2,000 unit PO DAILY 04/11/19 04/16/19 [Vitamin D3] Amoxic-Pot Clav 875-125Mg 1 tab PO Q12HR 04/16/19 04/16/19 [Augmentin 875-125] Previous Rx's Medication Instructions Recorded Atorvastatin [Lipitor] 80 mg PO HS #1 tab 04/14/15 Metoprolol Tartrate [Lopressor] 25 mg PO BID #1 tab 04/14/15 Omeprazole [PriLOSEC] 40 mg PO AC-BRKFST #14 cap 07/29/15 Aspirin EC [Ecotrin Low Dose] 81 mg PO DAILY #0 09/23/16 Nitroglycerin Sl Tabs [Nitrostat] 0.4 mg SUBLINGUAL Q5M PRN #25 tab 09/17/17 Azithromycin 250 mg PO DAILY #6 tablet 08/06/19 methylPREDNISolone Dose Pack 4 mg PO DIRECTED #21 package 08/06/19 [Medrol Dose Pack] Allergies Allergy/AdvReac Type Severity Reaction Status Date / Time Sulfa (Sulfonamide Allergy Rash/Hives Verified 08/06/19 06:51 Antibiotics) morphine AdvReac Abdominal Verified 08/06/19 06:51 Pain Review of Systems ROS Statement: Those systems with pertinent positive or pertinent negative responses have been documented in the HPI. ROS Other: All systems not noted in ROS Statement are negative. Past Medical History Past Medical History: Coronary Artery Disease (CAD), Hyperlipidemia, Hypertension, Myocardial Infarction ([place]), Pneumonia, Respiratory Disorder, Thyroid Disorder Additional Past Medical History / Comment(s): Idiopathic pulmonary fibrosis, hypothyroidism, daily steroids for several yrs, recent fall with R hand fracture/tendon and muscle tear R foot and bone contusion R thigh. Last Myocardial Infarction Date:: 04/12/15, 06/12/15 History of Any Multi-Drug Resistant Organisms: None Reported Past Surgical History: Section, Cholecystectomy, Heart Catheterization, Heart Catheterization With Stent, Hysterectomy, Tonsillectomy Additional Past Surgical History / Comment(s): Open lung biopsy, heart cath. 09-22-16, x 1, colonoscopy, R breast lumpectomy/biopsy-benign Past Anesthesia/Blood Transfusion Reactions: No Reported Reaction Date of Last Stent Placement:: 04/12/15 Past Psychological History: No Psychological Hx Reported Smoking Status: Never smoker Past Alcohol Use History: None Reported Past Drug Use History: None Reported - Past Family History Mother Family Medical History: Cancer, Coronary Artery Disease (CAD), Diabetes Mellitus, Hyperlipidemia, Myocardial Infarction ([place]), Thyroid Disorder Additional Family Medical History / Comment(s): DIVERTICULITS. Mother from small cell lung cancer. Father Family Medical History: Dementia, Diabetes Mellitus Additional Family Medical History / Comment(s): multiple myloma, parkinsons General Exam - General Exam Comments Initial Comments: 59-year-old female. Alert and oriented 3. No distress. Limitations: no limitations General appearance: alert, in no apparent distress Head exam: Present: atraumatic, normocephalic, normal inspection Eye exam: Present: normal appearance ENT exam: Present: normal exam, mucous membranes moist Neck exam: Present: normal inspection. Absent: tenderness, meningismus, lymphadenopathy Respiratory exam: Present: wheezes. Absent: normal lung sounds bilaterally, respiratory distress, rales, rhonchi, stridor Cardiovascular Exam: Present: regular rate, normal rhythm, normal heart sounds. Absent: systolic murmur, diastolic murmur, rubs, gallop, clicks Extremities exam: Present: normal inspection, full ROM, normal capillary refill. Absent: tenderness, pedal edema, joint swelling, calf tenderness Back exam: Present: normal inspection Neurological exam: Present: alert, oriented X3, CN II-XII intact Psychiatric exam: Present: normal affect, normal mood Skin exam: Present: warm, dry, intact, normal color. Absent: rash Course Vital Signs 08/06/19 08/06/19 08/06/19 06:47 07:26 07:31 Temperature 98.3 F Pulse Rate 77 69 68 Respiratory 20 Rate Blood Pressure 103/67 O2 Sat by Pulse 97 Oximetry 08/06/19 08:23 Temperature 98.1 F Pulse Rate 73 Respiratory 18 Rate Blood Pressure 119/72 O2 Sat by Pulse 97 Oximetry Medical Decision Making - Medical Decision Making 59-year-old female presents today with 2 days of vomiting diarrhea cough congestion. She has history of pulmonary fibrosis. Patient reports that she was feeling weak and did have syncopal episode 2 days ago. At this time Patient started on IV fluids labwork obtained. Blood work was reviewed and unremarkable. She is positive for influenza B. She reports that when she passed out she hit her tailbone. Patient complains some lower back and tailbone pain. X-ray of the coccyx and sacrum are reviewed and negative for fracture. Patient's chest x-ray does show some concern for pulmonary fibrosis and possible consolidation of the right lower lobe. Patient clinically is 90 signs r espiration S her wheezing. She had improvement after DuoNeb. Patient has been having symptoms over a week and states she does not want to have any Tamiflu. Patient will be started on antibiotics for prophylactic coverage with history of pulmonary fibrosis. Discussed Patient follow-up with primary care doctor within the next week. Discussed reports remaining hydrated him Motrin and Tylenol. - Lab Data Result diagrams: 08/06/19 07:17 08/06/19 07:17 Lab Results 08/06/19 08/06/19 08/06/19 Range/Units 06:52 07:17 07:17 WBC 4.4 (3.8-10.6) k/uL RBC 4.56 (3.80-5.40) m/uL Hgb 13.8 (11.4-16.0) gm/dL Hct 42.5 (34.0-46.0) % MCV 93.1 (80.0-100.0) fL MCH 30.4 (25.0-35.0) pg MCHC 32.6 (31.0-37.0) g/dL RDW 12.7 (11.5-15.5) % Plt Count 207 (150-450) k/uL Neutrophils % 77 % Lymphocytes % 10 % Monocytes % 9 % Eosinophils % 1 % Basophils % 1 % Neutrophils # 3.4 (1.3-7.7) k/uL Lymphocytes # 0.5 L (1.0-4.8) k/uL Monocytes # 0.4 (0-1.0) k/uL Eosinophils # 0.1 (0-0.7) k/uL Basophils # 0.0 (0-0.2) k/uL Sodium 141 (137-145) mmol/L Potassium 4.1 (3.5-5.1) mmol/L Chloride 104 (98-107) mmol/L Carbon Dioxide 29 (22-30) mmol/L Anion Gap 8 mmol/L BUN 13 (7-17) mg/dL Creatinine 0.72 (0.52-1.04) mg/dL Est GFR (CKD-EPI)AfAm >90 (>60 ml/min/1.73 sqM) Est GFR (CKD-EPI)NonAf >90 (>60 ml/min/1.73 sqM) Glucose 112 H (74-99) mg/dL Calcium 8.9 (8.4-10.2) mg/dL Troponin I (0.000-0.034) ng/mL Urine Color Urine Appearance (Clear) Urine pH (5.0-8.0) Ur Specific [place] (1.001-1.035) Urine Protein (Negative) Urine Glucose (UA) (Negative) Urine Ketones (Negative) Urine Blood (Negative) Urine Nitrite (Negative) Urine Bilirubin (Negative) Urine Urobilinogen (<2.0) mg/dL Ur Leukocyte Esterase (Negative) Influenza Type A RNA Not Detected (Not Detectd) Influenza Type B (PCR) Detected H (Not Detectd) 08/06/19 08/06/19 Range/Units 07:17 07:17 WBC (3.8-10.6) k/uL RBC (3.80-5.40) m/uL Hgb (11.4-16.0) gm/dL Hct (34.0-46.0) % MCV (80.0-100.0) fL MCH (25.0-35.0) pg MCHC (31.0-37.0) g/dL RDW (11.5-15.5) % Plt Count (150-450) k/uL Neutrophils % % Lymphocytes % % Monocytes % % Eosinophils % % Basophils % % Neutrophils # (1.3-7.7) k/uL Lymphocytes # (1.0-4.8) k/uL Monocytes # (0-1.0) k/uL Eosinophils # (0-0.7) k/uL Basophils # (0-0.2) k/uL Sodium (137-145) mmol/L Potassium (3.5-5.1) mmol/L Chloride (98-107) mmol/L Carbon Dioxide (22-30) mmol/L Anion Gap mmol/L BUN (7-17) mg/dL Creatinine (0.52-1.04) mg/dL Est GFR (CKD-EPI)AfAm (>60 ml/min/1.73 sqM) Est GFR (CKD-EPI)NonAf (>60 ml/min/1.73 sqM) Glucose (74-99) mg/dL Calcium (8.4-10.2) mg/dL Troponin I <0.012 (0.000-0.034) ng/mL Urine Color Yellow Urine Appearance Clear (Clear) Urine pH 7.0 (5.0-8.0) Ur Specific [place] 1.017 (1.001-1.035) Urine Protein Trace H (Negative) Urine Glucose (UA) Negative (Negative) Urine Ketones Negative (Negative) Urine Blood Negative (Negative) Urine Nitrite Negative (Negative) Urine Bilirubin Negative (Negative) Urine Urobilinogen <2.0 (<2.0) mg/dL Ur Leukocyte Esterase Negative (Negative) Influenza Type A RNA (Not Detectd) Influenza Type B (PCR) (Not Detectd) When compared to previous EKG there are: no significant change Interpretation: no acute changes, normal EKG - Radiology Data Radiology results: report reviewed EKG shows normal sinus rhythm possible lateral infarct abnormal EKG. Ventricular rate of 74 beats were minute. GA interval is 08/09/1933 most seconds. QRS ration is 86 no seconds. QT QTC 372/412 ms. Chest x-ray shows underlying pulmonary fibrosis of the lung bases with increasing left greater than right focal basilar opacities representing recent aspiration or infectious pneumonitis. Tailbone x-ray shows no angulated displaced tailbone fracture identified. Disposition Clinical Impression: Influenza B, Pulmonary fibrosis, Dehydration Disposition: HOME SELF-CARE Condition: Good Instructions (If sedation given, give patient instructions): Upper Respiratory Infection in Children (ED) Additional Instructions: Please use medication as discussed. Please follow up with family doctor if symptoms have not improved over the next two days. Please return to the emergency room if your symptoms increase or worsen or for any other concerns. Prescriptions: Azithromycin 250 mg PO DAILY #6 tablet methylPREDNISolone Dose Pack [Medrol Dose Pack] 4 mg PO DIRECTED #21 package Is patient prescribed a controlled substance at d/c from ED?: No Referrals: Rodolfo Tejeda DO [Primary Care Provider] - 1-2 days Time of Disposition: 09:37
[2019-08-06 07:24] LABS: Appearance,Urine Clear (Clear); Bilirubin,Urine Negative (Negative); Blood,Urine Negative (Negative); Color,Urine Yellow; Glucose,Urine (UA) Negative (Negative); Ketones,Urine Negative (Negative); Leukocyte Esterase,Urine Negative (Negative); Nitrite,Urine Negative (Negative); Protein,Urine Trace (Negative); Specific Gravity,Urine 1.017 (1.001-1.035); Urobilinogen,Urine <2.0 mg/dL (<2.0)
[2019-08-06 07:26] LABS: Basophils % (A) 1 %; Eosinophils # (A) 0.1 k/uL (0-0.7); Eosinophils % (A) 1 %; HCT 42.5 % (34.0-46.0); HGB 13.8 gm/dL (11.4-16.0); Lymphocytes # (A) 0.5 k/uL (1.0-4.8); Lymphocytes % (A) 10 %; MCH 30.4 pg (25.0-35.0); MCHC 32.6 g/dL (31.0-37.0); MCV 93.1 fL (80.0-100.0); Mean Platelet Volume 7.6; Monocytes # (A) 0.4 k/uL (0-1.0); Monocytes % (A) 9 %; Neutrophils # (A) 3.4 k/uL (1.3-7.7); Neutrophils % (A) 77 %; Platelet Count 207 k/uL (150-450); RBC 4.56 m/uL (3.80-5.40); RDW 12.7 % (11.5-15.5); WBC 4.4 k/uL (3.8-10.6)
[2019-08-06 07:35] LABS: African American GFR (CKD) >90 (>60 ml/min/1.73 sqM); Anion Gap 8 mmol/L; Blood Urea Nitrogen 13 mg/dL (7-17); Calcium 8.9 mg/dL (8.4-10.2); Carbon Dioxide 29 mmol/L (22-30); Chloride 104 mmol/L (98-107); Glucose 112 mg/dL (74-99); Non-African American GFR(CKD) >90 (>60 ml/min/1.73 sqM); Potassium 4.1 mmol/L (3.5-5.1); Sodium 141 mmol/L (137-145)
--- NOTE | 2019-08-06 07:58 | XR ---
EXAMINATION TYPE: XR chest 2V DATE OF EXAM: 08/06/2019 COMPARISON: 04/16/2019 HISTORY: 59-year-old female cough and history of pulmonary fibrosis TECHNIQUE: PA and lateral views FINDINGS: Heart upper limits of normal in size. Some interval increase in the patchy left greater than right bi basilar opacities. Most of the left hemidiaphragm is now obscured. No pleural effusion. Fine intersti tial densities at the posterior base of the lateral view. IMPRESSION: Some underlying pulmonary fibrosis and the lung bases but with increasing left greater right focal ba silar opacities could represent aspiration or infectious pneumonitis.
--- NOTE | 2019-08-06 07:59 | XR ---
EXAMINATION TYPE: XR sacrum coccyx DATE OF EXAM: 08/06/2019 COMPARISON: NONE HISTORY: 59-year-old female with fall and abdominal pain TECHNIQUE: 3 views FINDINGS: SI joints appear symmetric and intact. Arcuate lines of the sacrum appears smooth and continuous. Pub ic symphysis is intact. No displaced or angulated sacral or coccygeal fracture seen. IMPRESSION: No angulated or displaced tailbone fracture identified.
[2019-08-06 08:25] VITALS: RESP 18
[2019-08-06 09:54] VITALS: BP 115/60; PULSE 79; TEMP 98.9
== END 2019-08-06 09:45 | disposition home or self-care (01) ==
LOC: EC 06:41
DX: J10.1 Influenza due to other identified influenza virus with other respiratory manifestations (principal); J84.10 Pulmonary fibrosis, unspecified; E86.0 Dehydration; I25.10 Atherosclerotic heart disease of native coronary artery without angina pectoris; I10 Essential (primary) hypertension; E03.9 Hypothyroidism, unspecified; I25.2 Old myocardial infarction; Z79.890 Hormone replacement therapy; Z79.51 Long term (current) use of inhaled steroids; Z79.899 Other long term (current) drug therapy; Z88.2 Allergy status to sulfonamides; Z88.5 Allergy status to narcotic agent; Z95.5 Presence of coronary angioplasty implant and graft
CPT/HCPCS: 36415; 94640; 93005; 80048; 84484; 85025; 81003; 87502; 72220; 71046; 99284; 96374; 96375; 96361 ×2; J2930; J1885

== ENCOUNTER 2019-09-19 11:28 | Inpatient (IN) | payer MEDICARE, MEDICAID ==
--- NOTE | 2019-09-19 12:53 | ED ---
General Adult HPI - General Source: patient, RN notes reviewed Mode of arrival: ambulatory Limitations: no limitations <Jacob Sultana - Last Filed: 09/19/19 12:51> <Jose D Ochoa - Last Filed: 09/19/19 16:53> - General Chief complaint: Psychiatric Symptoms Stated complaint: mental health Time Seen by Provider: 09/19/19 12:17 - History of Present Illness Initial comments: 89-year-old female with a past medical history of CAD, hyperlipidemia, hypertension, IPF, hypothyroidism, myocardial infection, anxiety presents to the emergency department for a chief complaint of increased anxiety. Patient has apparently had anxiety since her divorce which was several years ago. Son is at bedside giving most of history. Stating that patient's anxiety seems out of control. States that she seems like she is on the brink of a mental breakdown. States that she is not eating. States they are concerned about her. She did take 5 days of an anxiety medication about a month ago but stopped taking this because she didn't like the side effects. When asked if she ever thinks about hurting herself she says I don't know.Patient has no other complaints at this time including shortness of breath, chest pain, abdominal pain, nausea or vomiting, headache, or visual changes. (Jacob Sultana) - Related Data Home Medications Medication Instructions Recorded Confirmed Benzonatate 100 mg PO DAILY 04/12/15 04/16/19 azaTHIOprine [Imuran] 50 mg PO DAILY 04/12/15 04/16/19 Levothyroxine Sodium [Synthroid] 75 mcg PO DAILY 09/15/17 04/16/19 Losartan [Cozaar] 25 mg PO DAILY 09/15/17 04/16/19 predniSONE 2.5 mg PO DAILY 09/15/17 04/16/19 Cholecalciferol (Vitamin D3) 2,000 unit PO DAILY 04/11/19 04/16/19 [Vitamin D3] Amoxic-Pot Clav 875-125Mg 1 tab PO Q12HR 04/16/19 04/16/19 [Augmentin 875-125] Previous Rx's Medication Instructions Recorded Atorvastatin [Lipitor] 80 mg PO HS #1 tab 04/14/15 Metoprolol Tartrate [Lopressor] 25 mg PO BID #1 tab 04/14/15 Omeprazole [PriLOSEC] 40 mg PO AC-BRKFST #14 cap 07/29/15 Aspirin EC [Ecotrin Low Dose] 81 mg PO DAILY #0 09/23/16 Nitroglycerin Sl Tabs [Nitrostat] 0.4 mg SUBLINGUAL Q5M PRN #25 tab 09/17/17 Azithromycin 250 mg PO DAILY #6 tablet 08/06/19 methylPREDNISolone Dose Pack 4 mg PO DIRECTED #21 package 08/06/19 [Medrol Dose Pack] Allergies Allergy/AdvReac Type Severity Reaction Status Date / Time Sulfa (Sulfonamide Allergy Rash/Hives Verified 09/19/19 12:19 Antibiotics) morphine AdvReac Abdominal Verified 09/19/19 12:19 Pain Review of Systems ROS Other: All systems not noted in ROS Statement are negative. <Jacob Sultana - Last Filed: 09/19/19 12:51> ROS Other: All systems not noted in ROS Statement are negative. <Jose D Ochoa - Last Filed: 09/19/19 16:53> ROS Statement: Those systems with pertinent positive or pertinent negative responses have been documented in the HPI. Past Medical History Past Medical History: Coronary Artery Disease (CAD), Hyperlipidemia, Hypertension, Myocardial Infarction ([place]), Pneumonia, Respiratory Disorder, Thyroid Disorder Additional Past Medical History / Comment(s): Idiopathic pulmonary fibrosis, hypothyroidism, daily steroids for several yrs, recent fall with R hand fracture/tendon and muscle tear R foot and bone contusion R thigh. Last Myocardial Infarction Date:: 04/12/15, 06/12/15 History of Any Multi-Drug Resistant Organisms: None Reported Past Surgical History: Section, Cholecystectomy, Heart Catheterization, Heart Catheterization With Stent, Hysterectomy, Tonsillectomy Additional Past Surgical History / Comment(s): Open lung biopsy, heart cath. 09-22-16, x 1, colonoscopy, R breast lumpectomy/biopsy-benign Past Anesthesia/Blood Transfusion Reactions: No Reported Reaction Date of Last Stent Placement:: 04/12/15 Past Psychological History: No Psychological Hx Reported Smoking Status: Never smoker Past Alcohol Use History: None Reported Past Drug Use History: None Reported - Past Family History Mother Family Medical History: Cancer, Coronary Artery Disease (CAD), Diabetes Mellitus, Hyperlipidemia, Myocardial Infarction ([place]), Thyroid Disorder Additional Family Medical History / Comment(s): DIVERTICULITS. Mother from small cell lung cancer. Father Family Medical History: Dementia, Diabetes Mellitus Additional Family Medical History / Comment(s): multiple myloma, parkinsons <aJcob Sultana P - Last Filed: 09/19/19 12:51> General Exam Limitations: no limitations General appearance: alert Head exam: Present: atraumatic, normocephalic, normal inspection Eye exam: Present: normal appearance, PERRL, EOMI. Absent: scleral icterus, conjunctival injection, periorbital swelling ENT exam: Present: normal exam, mucous membranes moist Neck exam: Present: normal inspection, full ROM. Absent: tenderness, meningismus, lymphadenopathy Respiratory exam: Present: normal lung sounds bilaterally. Absent: respiratory distress, wheezes, rales, rhonchi, stridor Cardiovascular Exam: Present: regular rate, normal rhythm, normal heart sounds. Absent: systolic murmur, diastolic murmur, rubs, gallop, clicks Psychiatric exam: Present: flat affect <Jacob Sultana P - Last Filed: 09/19/19 12:51> Course Vital Signs 09/19/19 12:14 Temperature 98.2 F Pulse Rate 96 Respiratory 16 Rate Blood Pressure 133/83 O2 Sat by Pulse 98 Oximetry Medical Decision Making <Jose D Ochoa - Last Filed: 09/19/19 16:53> - Medical Decision Making Patient seen by mental health services, who will admit (Jose D Ochoa) - Lab Data Lab Results 09/19/19 Range/Units 13:06 Urine Opiates Screen Not Detected (NotDetected) Ur Oxycodone Screen Not Detected (NotDetected) Urine Methadone Screen Not Detected (NotDetected) Ur Propoxyphene Screen Not Detected (NotDetected) Ur Barbiturates Screen Not Detected (NotDetected) U Tricyclic Antidepress Not Detected (NotDetected) Ur Phencyclidine Scrn Not Detected (NotDetected) Ur Amphetamines Screen Not Detected (NotDetected) U Methamphetamines Scrn Not Detected (NotDetected) U Benzodiazepines Scrn Not Detected (NotDetected) Urine Cocaine Screen Not Detected (NotDetected) U Marijuana (THC) Screen Not Detected (NotDetected) Disposition <Jacob Sultana - Last Filed: 09/19/19 12:51> Is patient prescribed a controlled substance at d/c from ED?: No Decision Time: 16:53 <Jose D Ochoa - Last Filed: 09/19/19 16:53> Clinical Impression: Depression Disposition: TRANSFER TO PSYCH HOSP/UNIT Referrals: Jere Farmer MD [Primary Care Provider] - 1-2 days
[2019-09-19 13:37] LABS: Amphetamine Screen,Urine Not Detected (NotDetected); Barbiturate Screen,Urine Not Detected (NotDetected); Benzodiazepines Screen,Urine Not Detected (NotDetected); Cocaine Screen,Urine Not Detected (NotDetected); Methadone Screen, Urine Not Detected (NotDetected); Opiate Screen,Urine Not Detected (NotDetected); Oxycodone Screen, Urine Not Detected (NotDetected); Phencyclidine Screen,Urine Not Detected (NotDetected); Tricyclic Antidepressant,Urine Not Detected (NotDetected); Urn Cannabinoid Scrn Not Detected (NotDetected)
[2019-09-19] MEDS ORDERED: NITROGLYCERIN SL TABS 0.4 MG TAB SUBLINGUAL PRN (18:01)
[2019-09-19] MEDS ORDERED: MAG HYDROX/AL HYDROX/SIMETH 30 ML CUP PO PRN (18:09)
[2019-09-19] MEDS ORDERED: ACETAMINOPHEN TAB 325 MG TAB PO PRN (18:09)
[2019-09-19] MEDS ORDERED: MAGNESIUM HYDROXIDE 2,400 MG/10 ML CUP PO PRN (18:09)
[2019-09-19] MEDS ORDERED: LORazepam 2 MG/ML INJ IM PRN (18:21)
[2019-09-19] MEDS: LORazepam 0.5 MG TAB PO PRN (19:25)
[2019-09-19] MEDS: ATORVASTATIN 80 MG TAB PO SCH (21:16)
[2019-09-19] MEDS: METOPROLOL TARTRATE 25 MG TAB PO SCH (21:16)
[2019-09-20] MEDS: LEVOTHYROXINE 88 MCG TAB PO SCH (06:21)
[2019-09-20] MEDS: azaTHIOprine 50 MG TAB PO SCH (08:43)
[2019-09-20] MEDS: predniSONE 2.5 MG TAB PO SCH (08:43)
[2019-09-20] MEDS: PANTOPRAZOLE 40 MG TABLET PO SCH (08:43)
[2019-09-20] MEDS: BENZONATATE 100 MG CAP PO SCH (08:43)
[2019-09-20] MEDS: LOSARTAN 25 MG TAB PO SCH (08:43)
[2019-09-20] MEDS: METOPROLOL TARTRATE 25 MG TAB PO SCH ×2 (08:43→21:21)
[2019-09-20 10:39] LABS: Basophils % (A) 0 %; Eosinophils # (A) 0.1 k/uL (0-0.7); Eosinophils % (A) 2 %; HCT 44.6 % (34.0-46.0); HGB 14.1 gm/dL (11.4-16.0); Lymphocytes # (A) 0.7 k/uL (1.0-4.8); Lymphocytes % (A) 13 %; MCH 30.5 pg (25.0-35.0); MCHC 31.6 g/dL (31.0-37.0); MCV 96.5 fL (80.0-100.0); Mean Platelet Volume 7.3; Monocytes # (A) 0.4 k/uL (0-1.0); Monocytes % (A) 8 %; Neutrophils % (A) 74 %; Platelet Count 295 k/uL (150-450); RBC 4.62 m/uL (3.80-5.40); RDW 13.7 % (11.5-15.5); WBC 5.5 k/uL (3.8-10.6)
[2019-09-20 10:45] LABS: Albumin 4.3 g/dL (3.5-5.0); Calcium 9.7 mg/dL (8.4-10.2); Potassium 4.6 mmol/L (3.5-5.1); Total Bilirubin 0.5 mg/dL (0.2-1.3)
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
[2019-09-20 18:31] LABS: Hemoglobin A1C 5.7 % (4.0-6.0)
[2019-09-20] MEDS: ATORVASTATIN 80 MG TAB PO SCH (21:21)
[2019-09-20] MEDS: MIRTAZAPINE 15 MG TAB PO SCH (21:22)
--- NOTE | 2019-09-20 21:22 | P.CONS ---
History of Present Illness - Reason for Consult Consult date: 09/20/19 Medical management Requesting physician: Ziggy Dupree - Chief Complaint Very anxious - History of Present Illness Consultation: This is a 59-year-old patient of Dr. Jree Farmer. Chronic stable medical conditions include chronic idiopathic pulmonary fibrosis, essential hypertension, hyperlipidemia, hypothyroid, coronary artery disease with stent 2014. Patient presented to ER with uncontrolled anxiety. Apparently she is still been going on since her divorce which happened quite some time ago. Son was present with her in the ER. Symptoms been getting out of control. Patient is barely able to sleep. Appetite is not good. Feels very tired rundown. He was getting rather depressed. All this resulted in bringing her to the hospital. Discussion also about patient stopped taking her medications. Patient has not been suicidal. No fever no chills. Review of systems: GEN.: Weak tired rundown EYES: None HEENT: None NECK: None RESPIRATORY: None CARDIOVASCULAR: None GASTROINTESTINAL: None GENITOURINARY: None MUSCULOSKELETAL: None LYMPHATICS: None HEMATOLOGICAL: None PSYCHIATRY: Anxious depressed NEUROLOGICAL: None Past medical history to include: Pulmonary fibrosis idiopathic, hypertension, hyperlipidemia, hypothyroid, coronary artery disease with stent- 2014 Social history: Lives alone. Does not smoke or drink alcohol. Physical examination: VITAL SIGNS: 98.8, 108, 16, 104/60, 98% on room air GENERAL: BMI 26.5 sitting at the edge of bed awake comfortable anxious. EYES: Pupils equal. Conjunctiva normal. HEENT: External appearance of nose and ears normal, oral cavity grossly normal. NECK: JVD not raised; masses not palpable. HEART: First and second heart sounds are normal; no edema. LUNGS: Respiratory rate normal; clear to auscultation. ABDOMEN: Soft, nontender, liver spleen not palpable, no masses palpable. PSYCH: Alert and oriented x3; mood and affect anxiousl. NEUROLOGICAL: Cranial nerves grossly intact; no facial asymmetry, power and sensation grossly intact. LYMPHATICS: No lymph nodes palpable in the axilla and neck. INVESTIGATIONS, reviewed in the clinical context: White count 5.5 hemoglobin 40.1 platelets is 295 potassium 4.6 creatinine 0.85 TSH 1.8 Urine drug screen negative Assessment: -Idiopathic pulmonary fibrosis -Coronary artery disease distended 2014 -Hypothyroid -Essential hypertension -Hyperlipidemia -Major depression with anxiety disorder Plan: Home medications are to continue. Care was discussed with the patient. Did advise to keep herself active including exercise including walking. She should follow the family doctor upon discharge Thank you Dr. Dupree Past Medical History Past Medical History: Coronary Artery Disease (CAD), Hyperlipidemia, Hypertension, Myocardial Infarction (GA), Pneumonia, Respiratory Disorder, Thyroid Disorder Additional Past Medical History / Comment(s): Idiopathic pulmonary fibrosis, hypothyroidism, daily steroids for several yrs, recent fall with R hand fracture/tendon and muscle tear R foot and bone contusion R thigh. Last Myocardial Infarction Date:: 04/12/15, 06/12/15 History of Any Multi-Drug Resistant Organisms: None Reported Past Surgical History: Section, Cholecystectomy, Heart Catheterization, Heart Catheterization With Stent, Hysterectomy, Tonsillectomy Additional Past Surgical History / Comment(s): Open lung biopsy, heart cath. 09-22-16, x 1, colonoscopy, R breast lumpectomy/biopsy-benign Past Anesthesia/Blood Transfusion Reactions: No Reported Reaction Date of Last Stent Placement:: 04/12/15 Past Psychological History: No Psychological Hx Reported Smoking Status: Never smoker Past Alcohol Use History: None Reported Past Drug Use History: None Reported - Past Family History Mother Family Medical History: Cancer, Coronary Artery Disease (CAD), Diabetes Mellitus, Hyperlipidemia, Myocardial Infarction (GA), Thyroid Disorder Additional Family Medical History / Comment(s): DIVERTICULITS. Mother from small cell lung cancer. Father Family Medical History: Dementia, Diabetes Mellitus Additional Family Medical History / Comment(s): multiple myloma, parkinsons Medications and Allergies Home Medications Medication Instructions Recorded Confirmed Type Benzonatate 100 mg PO DAILY 04/12/15 09/19/19 History azaTHIOprine [Imuran] 50 mg PO DAILY 04/12/15 09/19/19 History Atorvastatin [Lipitor] 80 mg PO HS #1 tab 04/14/15 09/19/19 Rx Metoprolol Tartrate [Lopressor] 25 mg PO BID #1 tab 04/14/15 09/19/19 Rx Losartan [Cozaar] 25 mg PO DAILY 09/15/17 09/19/19 History predniSONE 2.5 mg PO DAILY 09/15/17 09/19/19 History Nitroglycerin Sl Tabs [Nitrostat] 0.4 mg SUBLINGUAL Q5M PRN #25 tab 09/17/17 09/19/19 Rx Levothyroxine Sodium [Synthroid] 88 mcg PO DAILY 09/19/19 09/19/19 History Omeprazole [PriLOSEC] 40 mg PO DAILY 09/19/19 09/19/19 History Allergies Allergy/AdvReac Type Severity Reaction Status Date / Time Sulfa (Sulfonamide Allergy Rash/Hives Verified 09/19/19 17:40 Antibiotics) morphine AdvReac Abdominal Verified 09/19/19 17:40 Pain Physical Exam Vitals: Vital Signs Temp Pulse Pulse Resp BP BP Pulse Ox 09/20/19 09:07 101 H 141/67 09/20/19 04:39 98.8 F 108 H 16 104/60 09/19/19 19:24 97.5 F L 88 16 124/82 09/19/19 12:14 98.2 F 96 16 133/83 98 Results CBC & Chem 7: 09/20/19 09:44 09/20/19 09:44
[2019-09-21] MEDS: PANTOPRAZOLE 40 MG TABLET PO SCH (08:36)
[2019-09-21] MEDS: LEVOTHYROXINE 88 MCG TAB PO SCH (08:36)
[2019-09-21] MEDS: azaTHIOprine 50 MG TAB PO SCH (08:37)
[2019-09-21] MEDS: LOSARTAN 25 MG TAB PO SCH (08:37)
[2019-09-21] MEDS: BENZONATATE 100 MG CAP PO SCH (08:37)
[2019-09-21] MEDS: predniSONE 2.5 MG TAB PO SCH (08:38)
[2019-09-21] MEDS: METOPROLOL TARTRATE 25 MG TAB PO SCH ×2 (08:39→21:16)
--- NOTE | 2019-09-21 09:41 | P.PN ---
Progress Note - Text Interval history: The patient is found in the [facility] she follows me to an interview room. She indicates that she still feels anxious. She states that she slept about 4 hours last night. She feels very tired. She is encouraged not to nap. She indicates she attended groups yesterday and that effort was validated she is encouraged to continue participating in groups. She had a visit from her friend and spoke to several family members via phone. She expresses feelings of guilt that they are concerned about her. She spent s everal minutes discussing her feelings of anxiety and how they are overwhelming. She is concerned that they will never get better. In terms of the Remeron she feels that her stomach cramping is mildly worse but she is willing to continue taking the medication to see if that will jignesh. She states that she is picking at her meals but making an effort to eat. She is hydrating. Mental status exam: The patient is a female appearing her stated age. She is dressed in her own clothing hygiene grooming adequate. She maintains a blunted affect throughout the session. She describes ongoing feelings of anxiety that are debilitating. These anxiety feelings cause her to feel hopeless. She does feel safe in the hospital she reports no homicidal ideation intent or plan. She is reporting no auditory or visual hallucinations or any specific delusions. Speech is fluent spontaneous soft nonpressured. She demonstrates no tangential thinking loose associations or flight of ideas. She can be circumstantial at times. She is ruminative regarding her anxiety symptoms. She remains pessimistic overall in her thinking. She demonstrates no verbal or physical aggressiveness she demonstrates no involuntary repetitive movements. She remains oriented to person place and date. Plan: The patient will continue on her current medication. We will consider titrating the Remeron further. She is encouraged to use the Ativan when needed while in the hospital. Vital signs reviewed those are within normal limits. She requires continued psychiatric hospitalization due to her current ho pelessness thinking due to debilitating anxiety.
[2019-09-21] MEDS: ATORVASTATIN 80 MG TAB PO SCH (21:16)
[2019-09-21] MEDS: MIRTAZAPINE 15 MG TAB PO SCH (21:17)
[2019-09-21] MEDS: LORazepam 0.5 MG TAB PO PRN (23:44)
[2019-09-22] MEDS: predniSONE 2.5 MG TAB PO SCH (08:39)
[2019-09-22] MEDS: PANTOPRAZOLE 40 MG TABLET PO SCH (08:39)
[2019-09-22] MEDS: LOSARTAN 25 MG TAB PO SCH (08:39)
[2019-09-22] MEDS: BENZONATATE 100 MG CAP PO SCH (08:39)
[2019-09-22] MEDS: azaTHIOprine 50 MG TAB PO SCH (08:39)
[2019-09-22] MEDS: METOPROLOL TARTRATE 25 MG TAB PO SCH ×2 (08:39→21:13)
[2019-09-22] MEDS: LEVOTHYROXINE 88 MCG TAB PO SCH (08:39)
--- NOTE | 2019-09-22 09:14 | P.PN ---
Progress Note - Text Interval history: The patient is found in her room she reluctantly follows me to an interview room. sHe is seated at the edge of her bed looking at her drawer of clothing and states she can't decide anything. She reports that she did not sleep well staff reported she slept 5 hours which is an improvement from the night before. She indicates she is not eating staff indicated that she has eaten 50% and 75% of her last 2 meals. She describes continued debilitating anxiety. She states that she wants to shower but is too concerned about her being cold afterwards her hair being wet and her hair being in her face. We discussed some problem-solving techniques. She continues to be very pessimistic. We discussed that she is making several generalizing global statements that are not factual and that she needs to focus on good decisions she is making and goals that she is accomplishing so far. Mental status exam: The patient is alert she follows me to the interview room. She is ambulating without difficulty. She maintains a distraught affect she describes feeling anxious. This leads to her feeling helpless and hopeless. She indicates that she has no thoughts of harming herself here in the hospital no homicidal ideation intent or plan. She is reporting no auditory or visual hallucinations she endorses no specific delusions. She continues to be quite ruminative about her anxiety and how she feels it is causing dysfunction in her ability to think and make decisions. Insight and judgment remain impaired. She demonstrates no verbal or physical aggressiveness. She remains oriented to person place and date. Plan: The patient will continue on the Remeron we will increase to 15 mg at bedtime. She may continue using the Ativan as needed but she is reluctant to use that medication. We will continue to monitor her ability to sleep her food intake and her participation in the milieu. We will continue to monitor for safety. Vital signs reviewed those are within normal limits.
[2019-09-22] MEDS: MIRTAZAPINE 15 MG TAB PO SCH (21:13)
[2019-09-22] MEDS: ATORVASTATIN 80 MG TAB PO SCH (21:13)
[2019-09-23] MEDS: LEVOTHYROXINE 88 MCG TAB PO SCH (06:59)
[2019-09-23] MEDS: predniSONE 2.5 MG TAB PO SCH (08:35)
[2019-09-23] MEDS: BENZONATATE 100 MG CAP PO SCH (08:35)
[2019-09-23] MEDS: METOPROLOL TARTRATE 25 MG TAB PO SCH ×2 (08:35→20:31)
[2019-09-23] MEDS: azaTHIOprine 50 MG TAB PO SCH (08:35)
[2019-09-23] MEDS: PANTOPRAZOLE 40 MG TABLET PO SCH (08:35)
[2019-09-23] MEDS: LOSARTAN 25 MG TAB PO SCH (08:35)
--- NOTE | 2019-09-23 11:17 | P.PN ---
Progress Note - Text Interval history: The patient is found in her room she follows me to an interview room. She reports that her mood continues to be anxious she feels like her brain is foggy. She underestimates how much she is eating staff report that she ate 100% of her breakfast and 75% of dinner. She suspects it was less than that. She reportedly slept 3-4 hours last night. She indicates that she feels tired and wishes she could sleep more. She indicates she has a headache today and wonders if it is from medication. She is making an attempt to attend groups. She is anticipating visits from family this evening. Mental status exam: The patient is alert hygiene grooming adequate she is dressed in her own clothing. Speech is fluent spontaneous nonpressured. She has a blunted affect she speaks softly. She reports an anxious mood and feels like her head is in a fog. She seated calmly she demonstrates no verbal or physical aggressiveness. She continues to pervasively used pessimistic thinking. It is difficult to get her to engage in optimistic thought. She continues to over generalize and I continue to point that out. She demonstrates no involuntary repetitively movements. Insight and judgment are limited. She is oriented to person place and date. She reports feeling helpless and hopeless still. In terms of suicidal thoughts she feels safe in the hospital no homicidal ideation intent or plan reported. She is endorsing no symptoms of psychosis. Plan: The patient will continue on her current medication I will discontinue the Ativan as she is apprehensive in taking that. I will order Ambien 5 mg scheduled at bedtime. We discussed the need for us to improve her sleep while in the hospital. Remeron will continue as written. She is encouraged to participate in the milieu we will monitor her for safety. She requires continued psychiatric hospitalization due to the dysfunction that her mood and anxiety symptoms are causing.
[2019-09-23] MEDS: ATORVASTATIN 80 MG TAB PO SCH (20:31)
[2019-09-23] MEDS: MIRTAZAPINE 15 MG TAB PO SCH (20:31)
[2019-09-23] MEDS: ZOLPIDEM 5 MG TAB PO SCH (20:34)
[2019-09-24] MEDS: LEVOTHYROXINE 88 MCG TAB PO SCH (06:27)
[2019-09-24] MEDS: LOSARTAN 25 MG TAB PO SCH (08:54)
[2019-09-24] MEDS: PANTOPRAZOLE 40 MG TABLET PO SCH (08:54)
[2019-09-24] MEDS: predniSONE 2.5 MG TAB PO SCH (08:54)
[2019-09-24] MEDS: METOPROLOL TARTRATE 25 MG TAB PO SCH ×2 (08:54→21:16)
[2019-09-24] MEDS: BENZONATATE 100 MG CAP PO SCH (08:55)
[2019-09-24] MEDS: azaTHIOprine 50 MG TAB PO SCH (08:55)
--- NOTE | 2019-09-24 12:35 | P.PN ---
Progress Note - Text Interval history: The patient's found the hallway she follows me to an interview room. She states that she still is anxious. Staff reported she slept 5 hours last evening. She states there were a lot of disturbances in her room due to her roommate. She continues to have concern about medications. She has been attending groups. She did have family visit last evening. She continues to primarily utilize pessimistic thinking. Mental status exam: The patient is alert she's just her own clothing hygiene is adequate she has recently showered. Eye contact is appropriate affect is bland. She endorses and anxious mood she again is pessimistic in her thinking. She reports no suicidal or homicidal ideation intent or plan. She reports no auditory or visual hallucinations or specific delusions. She demonstrates no tangential thinking loose associations or flight of ideas she does not appear to be hypomanic or manic. She demonstrates no verbal or physical aggressiveness. Insight and judgment limited. Plan: The patient will continue on her current psychotropic medication we will monitor for safety. She is encouraged to participate in the [facility]. Vital signs are reviewed. She requires continued psychiatric hospitalization.
[2019-09-24 13:25] LABS: Appearance,Urine Clear (Clear); Bacteria,Urine Rare /hpf; Bilirubin,Urine Negative (Negative); Blood,Urine Trace (Negative); Color,Urine Light Yellow; Glucose,Urine (UA) Negative (Negative); Ketones,Urine Negative (Negative); Leukocyte Esterase,Urine Large (Negative); Mucus,Urine Rare /hpf; Nitrite,Urine Negative (Negative); PH, Urine 6.5 (5.0-8.0); Protein,Urine Negative (Negative); Specific Gravity,Urine 1.003 (1.001-1.035); Squamous Epithelial Cell,Urine <1 /hpf (0-4); Urobilinogen,Urine <2.0 mg/dL (<2.0); WBC,Urine 34 /hpf (0-5)
[2019-09-24] MEDS: CEPHALEXIN 250 MG CAP PO SCH ×2 (18:17→23:00)
[2019-09-24] MEDS: ATORVASTATIN 80 MG TAB PO SCH (21:16)
[2019-09-24] MEDS: MIRTAZAPINE 15 MG TAB PO SCH (21:16)
[2019-09-24] MEDS: ZOLPIDEM 5 MG TAB PO SCH (21:23)
[2019-09-25] MEDS: LEVOTHYROXINE 88 MCG TAB PO SCH (05:54)
[2019-09-25] MEDS: PANTOPRAZOLE 40 MG TABLET PO SCH (09:00)
[2019-09-25] MEDS: BENZONATATE 100 MG CAP PO SCH (09:02)
[2019-09-25] MEDS: azaTHIOprine 50 MG TAB PO SCH (09:02)
[2019-09-25] MEDS: CEPHALEXIN 250 MG CAP PO SCH ×4 (09:03→21:12)
[2019-09-25] MEDS: METOPROLOL TARTRATE 25 MG TAB PO SCH ×2 (09:03→21:10)
[2019-09-25] MEDS: LOSARTAN 25 MG TAB PO SCH (09:03)
[2019-09-25] MEDS: predniSONE 2.5 MG TAB PO SCH (09:03)
--- NOTE | 2019-09-25 11:19 | P.PN ---
Progress Note - Text Interval history: The patient is found in the hallway ambulating she follows me to an interview room. She states that she does had a call from her daughter who is returning back to [place]. She had a visit with her last evening that was pleasant. The patient reportedly slept 5 hours last evening. She states that she continues to not eat she is using the supplement and appears to be eating 50-75% of her meals in reviewing the record. We discussed goals for discharge planning. She states she is nervous about returning home going to her brother's house. She states he works afternoons and she would be alone while he is at work. We discussed her having outpatient therapist and psychiatrist she is concerned she will not be able to afford those visits. We reviewed her psychotropic medication. She feels that the Ambien is helping her get approximate 4 hours sleep. Mental status exam: The patient initially is bright she demonstrates some smiling. As the session progresses she focuses more on her anxiety. Affect becomes more distraught. She reports no acute suicidal or homicidal ideation. She is reporting no auditory or visual hallucinations or specific delusions. She continues to ruminate over her symptoms of anxiety. She continues to utilize pessimistic thinking. She demonstrates no verbal or physical agg ressiveness. As the session progressed she demonstrate more pauses in between her statements. She looked down at the floor more often. Insight and judgment limited. Plan: The patient continues to describe debilitating anxiety. In terms of affect there are times where we will see her brighten and demonstrate some smiling. She continues to ruminate however. I will increase the Ambien to 10 mg at bedtime to try to improve her sleep. She has previously failed melatonin and trazodone. Continue Remeron as written. We'll consider titrating that further. We will continue to look for input from family after the visits. We discussed a plan of discharging her sometime this week when she demonstrates sufficient improvement. Continue to develop her outpatient treatment plan and will look to involve family in a meeting. Vital signs reviewed.
[2019-09-25] MEDS: MIRTAZAPINE 15 MG TAB PO SCH (21:10)
[2019-09-25] MEDS: ZOLPIDEM 5 MG TAB PO SCH (21:10)
[2019-09-25] MEDS: ATORVASTATIN 80 MG TAB PO SCH (21:11)
[2019-09-26] MEDS: LEVOTHYROXINE 88 MCG TAB PO SCH (06:45)
[2019-09-26] MEDS: azaTHIOprine 50 MG TAB PO SCH (08:33)
[2019-09-26] MEDS: predniSONE 2.5 MG TAB PO SCH (08:33)
[2019-09-26] MEDS: METOPROLOL TARTRATE 25 MG TAB PO SCH ×2 (08:34→20:53)
[2019-09-26] MEDS: PANTOPRAZOLE 40 MG TABLET PO SCH (08:34)
[2019-09-26] MEDS: BENZONATATE 100 MG CAP PO SCH (08:34)
[2019-09-26] MEDS: LOSARTAN 25 MG TAB PO SCH (08:34)
[2019-09-26] MEDS: CEPHALEXIN 250 MG CAP PO SCH ×4 (08:35→20:52)
--- NOTE | 2019-09-26 11:04 | P.PN ---
Progress Note - Text Interval history: The patient is found in the hallway she follows me to an interview room. She indicates that she continues to struggle with excessive anxiety. She continues to find is debilitating in the sense that she is not eating her sleeps impaired and she can't make decisions. She states that she is not able to afford counseling when she leaves or her medicines. She is worried that her bank accounts currently overdrawn while she is here. It is very difficult to get her to engage in any optimistic thinking. Sleep appears to be improved appetite is still decreased. She is attending group but mainly listening. Mental status exam: The patient is alert she's dressed in her own clothing hygiene grooming adequate. She reports her mood is sad she feels depressed she reports having hopeless thoughts. Anxiety symptoms remain heightened. She is pessimistic in all areas of her thinking. She reports no suicidal thoughts but feels helpless. She reports no homicidal ideation. She reports no auditory or visual hallucinations or any specific delusions. She demonstrates no verbal or physical aggressiveness. She demonstrates no involuntary repetitive movements. Insight and judgment limited. Plan: The patient will continue on the Remeron we will titrate the dose to 30 mg at bedtime. We will discontinue the Ambien and schedule Ativan 0.5 mg twice daily hoping to alleviate some of the anxiety. Vital signs reviewed. She is encouraged to participate in the milieu. We spent several minutes trying to help her cognitively restructure her thoughts to no avail. She requires continued psychiatric hospitalization due to the dysfunction that her anxiety and mood symptoms are causing.
[2019-09-26] MEDS: LORazepam 0.5 MG TAB PO SCH ×2 (11:07→20:53)
[2019-09-26 13:40] VITALS: BMI 25.8
[2019-09-26] MEDS: MIRTAZAPINE 15 MG TAB PO SCH (20:52)
[2019-09-26] MEDS: ATORVASTATIN 80 MG TAB PO SCH (20:52)
[2019-09-27] MEDS: LEVOTHYROXINE 88 MCG TAB PO SCH (06:10)
[2019-09-27] MEDS: azaTHIOprine 50 MG TAB PO SCH (08:38)
[2019-09-27] MEDS: CEPHALEXIN 250 MG CAP PO SCH ×3 (08:38→17:22)
[2019-09-27] MEDS: BENZONATATE 100 MG CAP PO SCH (08:38)
[2019-09-27] MEDS: predniSONE 2.5 MG TAB PO SCH (08:38)
[2019-09-27] MEDS: LOSARTAN 25 MG TAB PO SCH (08:38)
[2019-09-27] MEDS: PANTOPRAZOLE 40 MG TABLET PO SCH (08:38)
[2019-09-27] MEDS: METOPROLOL TARTRATE 25 MG TAB PO SCH ×2 (08:40→21:18)
[2019-09-27] MEDS: LORazepam 0.5 MG TAB PO SCH ×2 (08:40→21:19)
--- NOTE | 2019-09-27 11:22 | P.PN ---
Progress Note - Text Interval history: The patient is found in group she follows me to an interview room. She indicates she feels tired due to the recent medication changes but states that she slept throughout the night. Staff documented she slept 6 hours but may have been closer to 7 or 8 hours. She does attend groups but has been quiet. She continues to speak with her family via phone. She states that she is having difficulty putting thoughts together and feels confused. We discussed that she does not appear confused objectively. She continues to have overwhelming feelings of anxiety causing psychosocial dysfunction. She remained very pessimistic. She continues to be resistant to efforts to help her cognitively restruct. Mental status exam: The patient is alert she is dressed in her own clothing hygiene grooming adequate. She is only mildly tired appearing. She maintains alertness throughout the session. She demonstrates no confusion during our session but reports it. She describes significant anxiety affect is distraught in discussing her anxiety. She does continue to describe numerous thoughts that she is concerned about and these did not respond well to reassurance. She continues to feel helpless hopeless at times. She feels safe in the hospital she reports no thoughts of harming others. She demonstrates no verbal or physical aggressiveness. Insight and judgment limited. Plan: We will continue her current medications as written. If she does appear to be sedated we can reduce the Ativan. Staff report that it is providing some benefit in calming her during the day. She requires continued psychiatric hospitalization. Vital signs reviewed. We will monitor to see if she is sleeping any better with the recent medication changes. We will involve family in treatment and discharge planning as she will allow.
[2019-09-27] MEDS: ATORVASTATIN 80 MG TAB PO SCH (21:17)
[2019-09-27] MEDS: MIRTAZAPINE 15 MG TAB PO SCH (21:17)
[2019-09-28] MEDS: LEVOTHYROXINE 88 MCG TAB PO SCH (06:24)
[2019-09-28] MEDS: azaTHIOprine 50 MG TAB PO SCH (08:30)
[2019-09-28] MEDS: METOPROLOL TARTRATE 25 MG TAB PO SCH ×2 (08:31→21:18)
[2019-09-28] MEDS: LORazepam 0.5 MG TAB PO SCH (08:31)
[2019-09-28] MEDS: LOSARTAN 25 MG TAB PO SCH (08:31)
[2019-09-28] MEDS: BENZONATATE 100 MG CAP PO SCH (08:31)
[2019-09-28] MEDS: PANTOPRAZOLE 40 MG TABLET PO SCH (08:31)
[2019-09-28] MEDS: predniSONE 2.5 MG TAB PO SCH (08:31)
--- NOTE | 2019-09-28 11:19 | P.PN ---
Progress Note - Text Interval history: The patient is found in group she follows me to an interview room. She indicates she had difficulty sleeping last night compared to the night before. Staff reported she slept 5 hours. She feels tired during the day she feels the Ativan dose is too high in the morning. She continues to excessively worry about her presenting circumstances and how she will cope with situations once discharge. She is concerned about using medication. She states that she has not been able to adequately eat. She spends too much time worrying about her showering routine and how she will do that she is discharged. Staff report that she attends groups but is quiet. She did have a visit from her friend last evening. Mental status exam: The patient is alert she's just her own clothing hygiene grooming adequate. Eye contact is appropriate speech is soft spontaneous nonpressured. She continues to ruminate and excessively worry about numerous aspects of her life. She finds is worried overwhelming and she admits to feeling hopeless. She feels helpless and feels that she's not able to "control anything". She endorses no homicidal ideation. She feels safe in the hospital. She reports no auditory or visual hallucinations or any specific delusions. She is oriented to person place and date. She demonstrates no verbal or physical aggressiveness she demonstrates no involuntary repetitive movements. She has a very bland affect with little reactivity. Insight and judgment are impaired. Plan: The patient will continue on her current medications we will reduce the Ativan dosage to 0.25 mg in the morning and increase to 1 mg at bedtime to further assist sleep. We discussed the possibility of using another medication as an augmentation strategy with Remeron to address depressive and anxiety symptoms. We will give this further consideration and discuss further tomorrow. She requires continued psychiatric hospitalization due to the psychosocial dysfunction caused by depressive and anxiety symptoms. Vital signs reviewed.
[2019-09-28] MEDS: LORazepam 1 MG TAB PO SCH (21:18)
[2019-09-28] MEDS: ATORVASTATIN 80 MG TAB PO SCH (21:18)
[2019-09-28] MEDS: MIRTAZAPINE 15 MG TAB PO SCH (21:18)
[2019-09-29] MEDS: LEVOTHYROXINE 88 MCG TAB PO SCH (06:14)
[2019-09-29] MEDS: PANTOPRAZOLE 40 MG TABLET PO SCH (08:39)
[2019-09-29] MEDS: LORazepam 0.5 MG TAB PO SCH (08:40)
[2019-09-29] MEDS: BENZONATATE 100 MG CAP PO SCH (08:40)
[2019-09-29] MEDS: azaTHIOprine 50 MG TAB PO SCH (08:40)
[2019-09-29] MEDS: METOPROLOL TARTRATE 25 MG TAB PO SCH ×2 (08:40→20:42)
[2019-09-29] MEDS: predniSONE 2.5 MG TAB PO SCH (08:40)
[2019-09-29] MEDS: LOSARTAN 25 MG TAB PO SCH (08:40)
--- NOTE | 2019-09-29 10:28 | P.PN ---
Progress Note - Text Interval history: The patient is found in group she follows me to an interview room. She states that nothing changed other than she feels more depressed. She feels more hopeless. He states nothing will get better she will not be able to afford outpatient follow-up for her medications. He continues to dismiss any efforts to reassure her. She continues to be resistant to any form of cognitive restructuring. She has been attending groups. She indicates she has been eating. Sleep was recorded at 7 hours last night. Mental status exam: The patient is alert she's Restoril clothing hygiene grooming adequate. She has a distraught affect. She reports feeling more depressed hopeless. She reports ongoing anxiety. She is reporting no homicidal ideation intent or plan. She describes no auditory or visual hallucinations or specific delusions. Thought process remains significantly ruminative but again just focusing on pessimistic thinking. She demonstrates no verbal or physical aggressiveness. She does not appear lethargic she does not appear tired today. Insight and judgment remain impaired. He demonstrates no involuntary movements. She is oriented to person place and date. In terms of suicidal thoughts she indicates she feels safe in the hospital. Plan: We will continue her current psychotropic medication. She is reporting more feelings of depression and hopelessness. We will add Abilify 2 mg to the Remeron as an augmentation strategy. Hopefully this will address depressive symptoms as well as breakup some of her ruminative thinking. We will monitor for safety and encourage participation in the milieu. Vital signs reviewed. She requires continued psychiatric hospitalization.
[2019-09-29] MEDS: ARIPiprazole 2 MG TAB PO SCH (10:35)
[2019-09-29] MEDS: MIRTAZAPINE 15 MG TAB PO SCH (20:43)
[2019-09-29] MEDS: LORazepam 1 MG TAB PO SCH (20:43)
[2019-09-29] MEDS: ATORVASTATIN 80 MG TAB PO SCH (20:43)
[2019-09-30] MEDS: LEVOTHYROXINE 88 MCG TAB PO SCH (06:21)
[2019-09-30] MEDS: LORazepam 0.5 MG TAB PO SCH (08:59)
[2019-09-30] MEDS: azaTHIOprine 50 MG TAB PO SCH (09:00)
[2019-09-30] MEDS: BENZONATATE 100 MG CAP PO SCH (09:00)
[2019-09-30] MEDS: PANTOPRAZOLE 40 MG TABLET PO SCH (09:00)
[2019-09-30] MEDS: LOSARTAN 25 MG TAB PO SCH (09:00)
[2019-09-30] MEDS: ARIPiprazole 2 MG TAB PO SCH (09:00)
[2019-09-30] MEDS: METOPROLOL TARTRATE 25 MG TAB PO SCH ×2 (09:01→20:57)
[2019-09-30] MEDS: predniSONE 2.5 MG TAB PO SCH (09:01)
--- NOTE | 2019-09-30 10:59 | P.PN ---
Progress Note - Text Progress Note Date: 09/30/19 Interval history: Patient is seen in [facility] [place] today. She reports that she has a headache today. She thinks it may be related to issues with her eyes. We discussed that if it is related to medication side effects that this can improve as she adjusts to the medication. She reports that her mood is sad and she relays being sad about being in the hospital. She is given much education about medications. Mental status exam: She is alert and cooperative with the interview. Her affect is restricted. Her mood she describes is sad. She does not verbalize any thoughts of harm to self or others. No evidence of active psychosis or agitation. Plan: Patient will be maintained on current psychotropic medication regimen. We'll continue to monitor for medication side effects and monitor her ongoing response to treatment. She is given much education.
[2019-09-30] MEDS: ATORVASTATIN 80 MG TAB PO SCH (20:57)
[2019-09-30] MEDS: MIRTAZAPINE 15 MG TAB PO SCH (20:57)
[2019-09-30] MEDS: LORazepam 1 MG TAB PO SCH (20:58)
[2019-10-01] MEDS: LEVOTHYROXINE 88 MCG TAB PO SCH (06:45)
[2019-10-01] MEDS: ARIPiprazole 2 MG TAB PO SCH (08:19)
[2019-10-01] MEDS: PANTOPRAZOLE 40 MG TABLET PO SCH (08:19)
[2019-10-01] MEDS: azaTHIOprine 50 MG TAB PO SCH (08:19)
[2019-10-01] MEDS: BENZONATATE 100 MG CAP PO SCH (08:19)
[2019-10-01] MEDS: LORazepam 0.5 MG TAB PO SCH (08:20)
[2019-10-01] MEDS: LOSARTAN 25 MG TAB PO SCH (08:20)
[2019-10-01] MEDS: predniSONE 2.5 MG TAB PO SCH (08:20)
[2019-10-01] MEDS: METOPROLOL TARTRATE 25 MG TAB PO SCH ×2 (08:20→20:45)
[2019-10-01 09:53] LABS: Appearance,Urine Cloudy (Clear); Bacteria,Urine Occasional /hpf; Bilirubin,Urine Negative (Negative); Blood,Urine Moderate (Negative); Color,Urine Yellow; Glucose,Urine (UA) Negative (Negative); Ketones,Urine Negative (Negative); Leukocyte Esterase,Urine Large (Negative); Mucus,Urine Rare /hpf; Nitrite,Urine Negative (Negative); Protein,Urine Trace (Negative); RBC,Urine 71 /hpf (0-5); Specific Gravity,Urine 1.017 (1.001-1.035); Squamous Epithelial Cell,Urine <1 /hpf (0-4); Urobilinogen,Urine <2.0 mg/dL (<2.0); WBC,Urine >182 /hpf (0-5)
--- NOTE | 2019-10-01 10:08 | P.PN ---
Progress Note - Text Progress Note Date: 10/01/19 Interval history: Patient is seen again in [facility] today. She did seem to sleep some last night. She does report feeling tired today. She talks about the Ativan is to help calm down her anxiety level. Her headache is better today. She does have a positive urinalysis today. Mental status exam: She is alert and cooperative with the interview. Her affect is restricted. Her speech is fluent, not rapid or pressured. Her mood appears depressed. She does not verbalize any thoughts of harm to self or others. No evidence of psychosis or current agitation. Plan: Patient will be maintained on current psychotropic medication regimen. Continue to monitor for any medication side effects and monitor her ongoing response to treatment. We will contact covering physician regarding UTI treatment.
[2019-10-01] MEDS: ATORVASTATIN 80 MG TAB PO SCH (20:45)
[2019-10-01] MEDS: MIRTAZAPINE 15 MG TAB PO SCH (20:45)
[2019-10-01] MEDS: LORazepam 1 MG TAB PO SCH (20:48)
[2019-10-02] MEDS: LEVOTHYROXINE 88 MCG TAB PO SCH (06:26)
[2019-10-02 06:54] VITALS: RESP 12
[2019-10-02] MEDS: LOSARTAN 25 MG TAB PO SCH (09:09)
[2019-10-02] MEDS: METOPROLOL TARTRATE 25 MG TAB PO SCH ×3 (09:10→21:54)
[2019-10-02] MEDS: ARIPiprazole 2 MG TAB PO SCH (09:10)
[2019-10-02] MEDS: BENZONATATE 100 MG CAP PO SCH (09:10)
[2019-10-02] MEDS: PANTOPRAZOLE 40 MG TABLET PO SCH (09:10)
[2019-10-02] MEDS: predniSONE 2.5 MG TAB PO SCH (09:10)
[2019-10-02] MEDS: LORazepam 0.5 MG TAB PO SCH (09:11)
[2019-10-02] MEDS: azaTHIOprine 50 MG TAB PO SCH (09:40)
--- NOTE | 2019-10-02 11:14 | P.PN ---
Progress Note - Text Interval history: The patient is found in group she follows me to an interview room. She indicates that she is feeling better she states that she would like to discuss discharge planning. She continues to state she will be staying with her brother after discharge. Social work has been able to contact her brother via phone. The patient continues to have symptoms of urinary tract infection the repeat urinalysis is more indicative an infection than the first. The patient expresses concerns about getting her medications paid for as well as therapy when she leaves. We discussed that in some detail. Mental status exam: The patient is alert she is dressed in her own clothing hygiene grooming adequate. Her affect seemed more relaxed today. She does continue to focus on some worries but she was able to demonstrate some inappropriate smiling and laughter at times. She actually made a few statements that were optimistic in nature. She is focused on future oriented thinking. She is reporting no suicidal or homicidal ideation intent or plan she is reporting no further hopelessness thinking. She demonstrates no verbal or physical aggressiveness she demonstrates no involuntary reported of movements. Insight and judgment improving. She endorses no auditory or visual hallucinations or any specific delusions. She demonstrates no tangential thinking loose associations or flight of ideas. Plan: The patient will continue on her current psychotropic medications we will monitor for safety. We will anticipate discharging her in the next 1-2 days. Vital signs reviewed. She was able to sleep 8 hours last evening. Appetite improving. She is encouraged to continue participating in the milieu. We will await the results of the urine culture.
[2019-10-02] MEDS: CEFDINIR 300 MG CAP PO SCH (20:35)
[2019-10-02] MEDS: MIRTAZAPINE 15 MG TAB PO SCH (20:36)
[2019-10-02] MEDS: ATORVASTATIN 80 MG TAB PO SCH (20:36)
[2019-10-02] MEDS: LORazepam 1 MG TAB PO SCH (20:37)
[2019-10-03] MEDS: LEVOTHYROXINE 88 MCG TAB PO SCH (06:18)
[2019-10-03 06:33] VITALS: BP 124/63; PULSE 89; TEMP 98.1
[2019-10-03] MEDS: PANTOPRAZOLE 40 MG TABLET PO SCH (08:36)
[2019-10-03] MEDS: azaTHIOprine 50 MG TAB PO SCH (08:36)
[2019-10-03] MEDS: ARIPiprazole 2 MG TAB PO SCH (08:36)
[2019-10-03] MEDS: METOPROLOL TARTRATE 25 MG TAB PO SCH (08:37)
[2019-10-03] MEDS: BENZONATATE 100 MG CAP PO SCH (08:37)
[2019-10-03] MEDS: predniSONE 2.5 MG TAB PO SCH (08:37)
[2019-10-03] MEDS: CEFDINIR 300 MG CAP PO SCH (08:37)
[2019-10-03] MEDS: LOSARTAN 25 MG TAB PO SCH (08:37)
[2019-10-03] MEDS: LORazepam 0.5 MG TAB PO SCH (08:37)
== END 2019-10-03 11:53 | disposition home or self-care (01) | DRG 881 ==
LOC: EC 11:28 → 3MHU 17:50
PROVIDERS: ADMIT Psychiatry & Neurology Psychiatry; ATTEND Psychiatry & Neurology Psychiatry
DX: F32.9 Major depressive disorder, single episode, unspecified (principal); R45.851 Suicidal ideations; N39.0 Urinary tract infection, site not specified; E03.9 Hypothyroidism, unspecified; E78.5 Hyperlipidemia, unspecified; F41.8 Other specified anxiety disorders; G47.00 Insomnia, unspecified; I10 Essential (primary) hypertension; I25.10 Atherosclerotic heart disease of native coronary artery without angina pectoris; I25.2 Old myocardial infarction; J84.112 Idiopathic pulmonary fibrosis; Z79.82 Long term (current) use of aspirin; Z79.890 Hormone replacement therapy; Z79.899 Other long term (current) drug therapy; Z80.1 Family history of malignant neoplasm of trachea, bronchus and lung; Z82.0 Family history of epilepsy and other diseases of the nervous system; Z82.49 Family history of ischemic heart disease and other diseases of the circulatory system; Z83.3 Family history of diabetes mellitus; Z90.710 Acquired absence of both cervix and uterus; Z95.5 Presence of coronary angioplasty implant and graft; Z80.7 Family history of other malignant neoplasms of lymphoid, hematopoietic and related tissues; Z81.8 Family history of other mental and behavioral disorders; Z83.49 Family history of other endocrine, nutritional and metabolic diseases; Z83.79 Family history of other diseases of the digestive system; Z90.49 Acquired absence of other specified parts of digestive tract; Z56.0 Unemployment, unspecified; Z88.5 Allergy status to narcotic agent; Z88.2 Allergy status to sulfonamides; B96.1 Klebsiella pneumoniae [K. pneumoniae] as the cause of diseases classified elsewhere
CPT/HCPCS: 80053; 80061; 80306; 81001; 82075; 83036; 84443; 85025; 87077; 87086; 87186; 99284

== ENCOUNTER → 2020-01-12 | Outpatient (CLI) | payer MEDICARE, MEDICAID | END | disposition home or self-care (01) | LOC: LABWHC1 12:57 | PROVIDERS: ATTEND Internal Medicine Endocrinology, Diabetes & Metabolism | DX: E03.8 Other specified hypothyroidism (principal) | CPT/HCPCS: 36415; 84443 ==

== ENCOUNTER 2020-08-18 10:07 | Emergency (ER) | payer MEDICARE, OTHER ==
[2020-08-18 10:18] VITALS: TEMP 98.6
[2020-08-18] MEDS ORDERED: HYDROmorphone 0.5 MG/0.5 ML SYRINGE IVP STA ×2 (10:36→12:39)
--- NOTE | 2020-08-18 10:43 | ED ---
General Adult HPI - General Chief complaint: Extremity Injury, Lower Stated complaint: fall Time Seen by Provider: 08/18/20 10:14 Source: patient, EMS, RN notes reviewed Mode of arrival: EMS Limitations: no limitations - History of Present Illness Initial comments: This a 60-year-old female presents emergency Department chief complaint of a fall. Patient states she was coming down the ladder missed the last step states that she fell. Patient states that she has right knee, right hip low back pain and right elbow pain. Patient had no significant head injury no loss consciousness no blood thinners. She has no headache or neck pain. Patient states that she's had several fractures secondary to long-term steroid use. Patient denies any upper back no chest pain or shortness of breath out of the usual she states she has pulmonary fibrosis states that she is on chronic steroids. - Related Data Home Medications Medication Instructions Recorded Confirmed Benzonatate 100 mg PO DAILY 04/12/15 09/19/19 azaTHIOprine [Imuran] 50 mg PO DAILY 04/12/15 09/19/19 Losartan [Cozaar] 25 mg PO DAILY 09/15/17 09/19/19 predniSONE 2.5 mg PO DAILY 09/15/17 09/19/19 Levothyroxine Sodium [Synthroid] 88 mcg PO DAILY 09/19/19 09/19/19 Omeprazole [PriLOSEC] 40 mg PO DAILY 09/19/19 09/19/19 Previous Rx's Medication Instructions Recorded Atorvastatin [Lipitor] 80 mg PO HS #1 tab 04/14/15 Metoprolol Tartrate [Lopressor] 25 mg PO BID #1 tab 04/14/15 Nitroglycerin Sl Tabs [Nitrostat] 0.4 mg SUBLINGUAL Q5M PRN #25 tab 09/17/17 ARIPiprazole [Abilify] 2 mg PO DAILY #30 tab 10/03/19 Cefdinir [Omnicef] 300 mg PO BID #10 cap 10/03/19 LORazepam [Ativan] 1 mg PO HS #30 tab 10/03/19 Mirtazapine [Remeron] 30 mg PO HS #30 tab 10/03/19 Allergies Allergy/AdvReac Type Severity Reaction Status Date / Time Sulfa (Sulfonamide Allergy Rash/Hives Verified 09/19/19 17:40 Antibiotics) morphine AdvReac Abdominal Verified 09/19/19 17:40 Pain Review of Systems ROS Statement: Those systems with pertinent positive or pertinent negative responses have been documented in the HPI. ROS Other: All systems not noted in ROS Statement are negative. Past Medical History Past Medical History: Coronary Artery Disease (CAD), Hyperlipidemia, Hypertension, Myocardial Infarction (IA), Pneumonia, Respiratory Disorder, Thyroid Disorder Additional Past Medical History / Comment(s): Idiopathic pulmonary fibrosis, hypothyroidism, daily steroids for several yrs, recent fall with R hand fracture/tendon and muscle tear R foot and bone contusion R thigh. Last Myocardial Infarction Date:: 04/12/15, 06/12/15 History of Any Multi-Drug Resistant Organisms: None Reported Past Surgical History: Section, Cholecystectomy, Heart Catheterization, Heart Catheterization With Stent, Hysterectomy, Tonsillectomy Additional Past Surgical History / Comment(s): Open lung biopsy, heart cath. 09-22-16, x 1, colonoscopy, R breast lumpectomy/biopsy-benign Past Anesthesia/Blood Transfusion Reactions: No Reported Reaction Date of Last Stent Placement:: 04/12/15 Past Psychological History: No Psychological Hx Reported Smoking Status: Never smoker Past Alcohol Use History: Occasional Past Drug Use History: None Reported - Past Family History Mother Family Medical History: Cancer, Coronary Artery Disease (CAD), Diabetes Mellitus, Hyperlipidemia, Myocardial Infarction (IA), Thyroid Disorder Additional Family Medical History / Comment(s): DIVERTICULITS. Mother from small cell lung cancer. Father Family Medical History: Dementia, Diabetes Mellitus Additional Family Medical History / Comment(s): multiple myloma, parkinsons General Exam Limitations: no limitations General appearance: alert, in no apparent distress Head exam: Present: atraumatic, normocephalic, normal inspection Eye exam: Present: normal appearance, PERRL, EOMI. Absent: scleral icterus, conjunctival injection, periorbital swelling ENT exam: Present: normal exam, normal oropharynx, mucous membranes moist Neck exam: Present: normal inspection, full ROM. Absent: tenderness, meningismus, lymphadenopathy Respiratory exam: Present: normal lung sounds bilaterally. Absent: respiratory distress, wheezes, rales, rhonchi, stridor, chest wall tenderness Cardiovascular Exam: Present: regular rate, normal rhythm, normal heart sounds. Absent: systolic murmur, diastolic murmur, rubs, gallop, clicks GI/Abdominal exam: Present: soft, normal bowel sounds. Absent: distended, tenderness, guarding, rebound, rigid Extremities exam: Present: other (Right knee severe times with palpation, moderate swelling, neurovascular intact right extremity patient has limited range of motion secondary to pain there is some tenderness the right hip right elbow full range of motion patient reports mild discomfort neurovascular intact no other extremity injury) Back exam: Present: normal inspection, full ROM, tenderness (Patient states that she does have full range of motion but it's very painful mild tenderness the lumbar region), paraspinal tenderness. Absent: vertebral tenderness Neurological exam: Present: alert, oriented X3, CN II-XII intact, reflexes normal. Absent: motor sensory deficit Skin exam: Present: warm, dry, intact, normal color. Absent: rash Course Vital Signs 08/18/20 08/18/20 10:09 12:26 Temperature 98.6 F Pulse Rate 93 99 Respiratory 17 19 Rate Blood Pressure 131/69 134/86 O2 Sat by Pulse 97 94 L Oximetry Medical Decision Making - Medical Decision Making 60-year-old female presented for a fall. X-ray shows stigmata plateau fracture, thoracic T12 fracture. Case discussed with Dr. Thomason,and delano og recommends patient be transferred to trauma or throat. Case discussed with Dr. Rothman at [facility]. Disposition Clinical Impression: Fracture of right tibial plateau, Thoracic compression fracture, Fall Disposition: OTHER INSTITUTION NOT DEFINED Condition: Stable Referrals: Jere Farmer MD [Primary Care Provider] - 1-2 days Time of Disposition: 13:09 - Out of Hospital Transfer - Req. Specs Out of Hospital Transfer - Requested Specifics: Other Emergency Center ([facility]
--- NOTE | 2020-08-18 11:01 | XR ---
Right elbow HISTORY: Trauma and pain 3 views the right elbow There is an Angiocath present overlying the elbow. Bone mineralization, joint spaces and alignment ar e maintained. No evident elbow joint effusion. IMPRESSION: No fracture or dislocation.
--- NOTE | 2020-08-18 11:36 | XR ---
Right knee HISTORY: Trauma and pain 3 views the right knee correlated prior exam 11/20/2015 There is a minimally displaced and minimally depressed lateral tibial plateau fracture. There is no d islocation. There is associated joint effusion. IMPRESSION: Tibial plateau fracture
--- NOTE | 2020-08-18 11:37 | XR ---
AP pelvis HISTORY: Trauma and pain Single frontal view the pelvis without comparison There is a surgical clip present over the right ilium. Probable vascular calcifications are present w ithin the pelvis and right paraspinal region. Bone mineralization, joint spaces and alignment are rebeca ntained. IMPRESSION: No acute fracture or dislocation.
--- NOTE | 2020-08-18 11:39 | XR ---
Lumbar spine HISTORY: Trauma and pain 3 views the lumbar spine Lumbar vertebral bodies show preserved height, alignment, and bone mineralization is reduced. Mild freeman perior endplate depression noted at T12, loss of height of approximately 10% to 20%. No evident retro pulsion. This spaces are maintained. IMPRESSION: Superior endplate fracture T12
--- NOTE | 2020-08-18 12:50 | CT ---
EXAMINATION TYPE: CT knee RT wo con DATE OF EXAM: 08/18/2020 COMPARISON: Plain film same date HISTORY: fall from ladder, fx trauma and fracture CT DLP: 123.7 mGycm Automated exposure control for dose reduction was used. Helical imaging through the knee. Three-dimen sional reconstructions. FINDINGS: Patient's minimally displaced comminuted tibial plateau fracture with minimal depression is noted as on plain film and extends into the medial compartment anteriorly and involves the tibial spine region . There is a joint effusion with probable hemarthrosis, layering density is noted. IMPRESSION: FRACTURE DESCRIBED.
--- NOTE | 2020-08-18 12:55 | CT ---
EXAMINATION TYPE: CT thor lumbar spine wo con DATE OF EXAM: 08/18/2020 COMPARISON: Plain film same date HISTORY: fall from ladder, fx CT DLP: 1271.6 mGycm Automated exposure control for dose reduction was used. Helical imaging obtained through the thoracic lumbar spine FINDINGS: Superior endplate fracture at T12 shows minimal depression anteriorly, loss of height of approximatel y 10%. There is no retropulsion as described on plain film report. Visualized thoracic and lumbar german tebral bodies are intact. No evident spinal stenosis. Remaining thoracic and lumbar vertebral bodies show preserved height, there is a spinal curvature. Disc spaces are maintained. There are findings of medullary sponge kidney, nonobstructive calculi present within the right kidney . Interstitial changes are noted incidentally in the lungs, some areas of abnormal groundglass opacit y or inflammatory change also present, there is basilar honeycombing, some minimal pleural calcificat ion present at the left chest phrenic angle. Patient is post cholecystectomy. IMPRESSION: FRACTURE DESCRIBED. INTERSTITIAL LUNG DISEASE. MEDULLARY SPONGE KIDNEY, NEPHROLITHIASIS ON THE RIG HT.
[2020-08-18 13:23] VITALS: BP 139/79; PULSE 94; RESP 18
== END 2020-08-18 13:34 | disposition other institution (70) ==
LOC: EC 10:07
DX: S82.141A Displaced bicondylar fracture of right tibia, initial encounter for closed fracture (principal); S22.009A Unspecified fracture of unspecified thoracic vertebra, initial encounter for closed fracture; I25.10 Atherosclerotic heart disease of native coronary artery without angina pectoris; I10 Essential (primary) hypertension; E78.5 Hyperlipidemia, unspecified; E03.9 Hypothyroidism, unspecified; I25.2 Old myocardial infarction; Z79.51 Long term (current) use of inhaled steroids; Z79.890 Hormone replacement therapy; Z79.899 Other long term (current) drug therapy; Z88.2 Allergy status to sulfonamides; Z88.5 Allergy status to narcotic agent; Z95.5 Presence of coronary angioplasty implant and graft; W11.XXXA Fall on and from ladder, initial encounter
CPT/HCPCS: 72100; 72170; 73080; 73562; 72128; 72131; 73700; 99285; 96374; 96376; L1830; J1170